=== PATIENT | female | born 1960 | race Caucasian/White ===

== ENCOUNTER → 2017-01-24 | Outpatient (CLI) | payer BC ==
[~2017-01-24] MED LIST: BUPR-79 PO; OXYC-57 PO; RIZA10TA19 PO; SUMA100T16 PO; TOPI100T20 PO
--- NOTE | 2017-01-24 16:01 | MAMMOGRAPHY REPORT ---
BILATERAL DIGITAL SCREENING MAMMOGRAM TOMOSYNTHESIS WITH CAD: 01/24/2017 CLINICAL HISTORY: Routine screening. Patient has no complaints. TECHNIQUE: Breast tomosynthesis in addition to standard 2D mammography was performed. Current study was also evaluated with a Computer Aided Detection (CAD) system. COMPARISON: Comparison is made to exams dated: 01/13/2016 mammogram, 01/11/2015 mammogram, 10/30/2013 ma mmogram, 10/22/2012 mammogram, 10/22/2011 mammogram, and 06/22/2009 mammogram - [facility] enter. BREAST COMPOSITION: The tissue of both breasts is heterogeneously dense, which may obscure small mas ses. FINDINGS: No suspicious masses, calcifications, or areas of architectural distortion are noted in ei ther breast. There has been no significant interval change compared to prior exams. IMPRESSION: ACR BI-RADS CATEGORY 1: NEGATIVE There is no mammographic evidence of malignancy. A 1 year screening mammogram is recommended. The pa tient will receive written notification of the results. Approximately 10% of breast cancers are not detected with mammography. A negative mammographic report should not delay biopsy if a clinically suggestive mass is present. Nano Pacheco M.D. ah/:01/24/2017 15:24:06 Pharmacist Per Diem: Noa HIRSCH(R)(M), [facility] letter sent: Normal 1/2 BI-RADS Code: ACR BI-RADS Category 1: Negative
== END | disposition home or self-care (01) ==
LOC: C.MAMM 13:49
PROVIDERS: ATTEND Family Medicine
DX: Z12.31 Encounter for screening mammogram for malignant neoplasm of breast (principal)

== ENCOUNTER 2023-09-04 09:29 | Observation (INO) ==
--- NOTE | 2023-09-04 10:06 | CT Scan Report ---
CT SCAN OF THE BRAIN WITHOUT IV CONTRAST CLINICAL HISTORY: Neurological deficit. Stroke like symptoms. COMPARISON STUDY: No priors. TECHNIQUE: Unenhanced axial CT scan of the brain is performed from the vertex to the skull base. A d ose lowering technique was utilized adhering to the principles of ALARA. CT DOSE: 547.75 mGy.cm FINDINGS: Brain parenchyma: There is age-related involutional change noting mild subcortical and periventricula r microangiopathic disease. There is no hemorrhage, mass effect, or evidence of acute territorial isc hemia by CT criteria. Luna-white matter differentiation is preserved. No extra-axial fluid collection is seen. Ventricles, sulci, cisterns: Prominent secondary to involutional change. Cavum septum pellucidum is i ncidentally noted. Intracranial vasculature: There is atherosclerotic calcification of the cavernous carotid arteries. Calvarium: Unremarkable. Sinuses and mastoids: The visualized paranasal sinuses are clear. The mastoid air cells are well pneu matized. Orbits: The bony orbits are grossly intact. IMPRESSION: There is no hemorrhage, mass effect, or evidence of acute territorial ischemia by CT kathleen vásquez. ACT 112: Negative or not required by law. Electronically signed by: Reagan Reddy M.D. 09/04/2023 10:04 AM
--- NOTE | 2023-09-04 10:33 | XRay Report ---
SINGLE VIEW CHEST CLINICAL HISTORY: Strokelike symptoms. FINDINGS: A PA chest radiograph is compared to study dated 07/29/2007 and correlated with chest CT pam ed 01/12/2008. The heart is mildly enlarged noting atherosclerotic calcification of the thoracic aorta . The pulmonary vasculature is noncongested. There is minimal bibasilar scarring/atelectasis. The yas gs and pleural spaces are otherwise clear. No pneumothorax is seen. The skeletal structures are osteo penic. The bony thorax is grossly intact. Fusion hardware is noted in the lower cervical spine. Gabby cystectomy clips are seen in the right upper quadrant. IMPRESSION: No active disease in the chest. ACT 112: Negative or not required by law. Electronically signed by: Reagan Reddy M.D. 09/04/2023 10:32 AM
[2023-09-04 11:09] LABS: Hematocrit (blood only) 37.9 % (37.0-47.0); Hemoglobin 13.1 g/dl (12.0-16.0); Mean Corpuscular Hemoglobin 28.2 pg (25.0-34.0); Mean Corpuscular Hgb Conc 34.6 g/dL (32.0-36.0); Mean Corpuscular Volume 81.5 fL (80.0-100.0); Platelet Count 347 K/uL (130-400); Red Blood Count 4.65 M/uL (4.20-5.40); White Blood Count 10.38 K/ul (4.8-10.8)
--- NOTE | 2023-09-04 11:25 | Emergency Department Note ---
Impression & Plan Hypertensive emergency ED Provider Note NAME: RITCHIE ROMERO AGE: 62 SEX: F : 1960 ARRIVES VIA: Walk-In INFORMANT: Patient, ED PROVIDER(S): Alfonso Salazar MD CHIEF COMPLAINT: Difficulty talking, hand numbness HPI: This is a 62-year-old female presenting for difficulty talking and numbness. Patient states that her symptoms were yesterday and she has had resolved symptoms since then. She notes that yesterday she is thought that she could not carry a conversation that she thought that her speech was obscured. She had no trouble finding words but just that trouble focusing. She thought she had sugar issues but this was not a problem as there were normal. Otherwise she had a right upper extremity tingling and numbness. She had that she did not feel the ring on her hand. All of her symptoms completely resolved. Today she told her PCP with her to come here for TIA rule out. Not take any blood thinners. No shortness of breath, fever, chills, nausea or vomiting. She has not been compliant with her medications including blood pressure medication at home. ROS: See above HPI for pertinent positives & negatives. A total of 10 systems reviewed and were otherwise negative. PAST MEDICAL HISTORY: See Below PAST SURGICAL HISTORY: See Below FAMILY HISTORY: See Below SOCIAL HISTORY: See Below HOME MEDICATIONS: See Below ALLERGIES: See Below VITALS: See Below PHYSICAL EXAMINATION: General: resting comfortably in no acute distress Head: Normocephalic and atraumatic Eyes: Normal inspection, extraocular muscles intact Ear, nose, throat: Normal external exam Neck: Normal range of motion Respiratory: lungs clear to auscultation bilaterally Cardiovascular: Regular rate/rhythm, no murmur GI: soft, nontender, no guarding or rebound Extremities: nontender, moves all extremities Neuro: The patient awake and alert, appropriately conversive, no focal deficits, symmetric faces, cranial nerves II to XII grossly intact, full motor strength in all extremities, no sensation deficits Skin: Warm, dry, and intact MEDICAL DECISION MAKING: This is a 62-year-old female presenting for transient difficulty speaking with numbness in her right upper extremity. Symptoms mildly concerning for TIA however currently no symptoms. Patient did have a blood pressure on arrival of 251/174, this was checked multiple times and cover to be accurate. Otherwise upon arrival to the exam room, her blood pressure is now down over 1 88-1 08 after about 1 hour. -Patient CT head reveals no acute traumatic or intracranial abnormality. -ECG independently interpreted by me with normal sinus rhythm with trigeminy, rate of 90, normal axis, normal [place], normal QRS, normal QTc, no ST segment elevations consistent with STEMI criteria -With patient's elevated blood pressure initially, vague neurosymptoms, consider press syndrome versus TIA versus stroke -Low concern for ACS, PE, meningitis -Despite patient's otherwise negative workup at this time, do believe patient required mission for her significant elevated blood pressure and vague neurosymptoms. This will help rule out TIA versus other neurologic symptoms. Differential diagnosis: See above ER treatment provided: See below Diagnostics interpreted by me: ECG: See above] Cardiac Monitoring: An order was placed for continuous cardiac monitoring. The monitor shows a rate of 89 with sinus rhythm. Laboratory studies: As stated above and show below. Imaging studies: See below. Past Med/Surg History Medical History (Updated 09/04/23 @ 17:54 by Alfonso Salazar MD) History of migraine Diabetes mellitus, type 2 Spinal cord injury INJURY AT WORK IN 2007 Gout Gastroparesis GERD (gastroesophageal reflux disease) Hypothyroidism Anemia Depression Anxiety Migraine Hyperlipidemia Hypertension Thrombosis RT JUGULAR Pulmonary embolism 2008 Surgical History History of anesthesia reaction WENT IN TO A COMA FOR 1 DAY AFTER SILVIA (DONE AT [place] 1984) History of dilatation and curettage History of total abdominal hysterectomy and bilateral salpingo-oophorectomy Fusion of spine 2008 History of cholecystectomy History of appendectomy History of colonoscopy History of mandibular surgery UPPER AND LOWER History of tooth extraction History of tonsillectomy Family History Sister Family history of diabetes mellitus Heart disease Social History Smoking Status: Never smoker Second Hand Exposure: No; Hx Alcohol Use: Yes Alcohol type: wine Hx Substance Use: No Preferred Language: Slovak Communication Ability: Effective High Court Justice Required: No Beliefs That Will Affect Care: None Current Living Situation: Other Feels Safe at Home: Yes Safety Concerns: Feels Safe At This Time Assistive Devices: Glasses Allergies Allergies Allergy/AdvReac Type Severity Reaction Status Date / Time exenatide [From Bydureon] Allergy Hives Verified 09/04/23 12:52 Home Meds Home Medications Medication Instructions Recorded Confirmed sumatriptan succinate 100 mg 1 tab PO UD PRN Migraine Headache 04/17/18 09/04/23 tablet (Imitrex) galcanezumab-gnlm 120 mg/mL 120 mg subcut MO 09/04/23 09/04/23 subcutaneous pen injector (Emgality Pen) glimepiride 4 mg tablet 4 mg PO BID 09/04/23 09/04/23 semaglutide 2 mg/dose (8 mg/3 mL) 2 mg subcut WK 09/04/23 09/04/23 subcutaneous pen injector (Ozempic) Results & Data (ED) Vital Signs Vital Signs - 24 hr 09/04/23 09:36 09/04/23 11:00 09/04/23 11:01 Temperature 36.7 C Temperature Source Temporal Artery Scan Pulse Rate 85 94 H Pulse Rate [Left Finger] 93 H Pulse Rhythm Respiratory Rate 18 20 Respiratory Effort / Characteristics Non-Labored Spontaneous Respiratory Depth Normal Blood Pressure 251/174 H Blood Pressure [Left Arm] 188/108 H Blood Pressure Mean 199 Blood Pressure Mean [Left Arm] 134 Blood Pressure Position Sitting Blood Pressure Position [Left Arm] Sitting Pulse Oximetry 99 98 Oxygen Delivery Method Room Air Room Air Sepsis Recent Fever Within 48 Hours No Sepsis New/Unexplained Change in Mental Status No Sepsis Action Taken by Nursing No Action Required 09/04/23 12:14 09/04/23 12:14 Temperature Temperature Source Pulse Rate 87 Pulse Rate [Left Finger] Pulse Rhythm Regular Respiratory Rate 22 Respiratory Effort / Characteristics Respiratory Depth Blood Pressure Blood Pressure [Left Arm] Blood Pressure Mean Blood Pressure Mean [Left Arm] Blood Pressure Position Blood Pressure Position [Left Arm] Pulse Oximetry 94 94 Oxygen Delivery Method Room Air Room Air Sepsis Recent Fever Within 48 Hours Sepsis New/Unexplained Change in Mental Status Sepsis Action Taken by Nursing Laboratory Data 09/04/23 10:56 09/04/23 10:56 Lab Results 09/04/23 Range/Units 10:56 WBC 10.38 (4.8-10.8) K/ul RBC 4.65 (4.20-5.40) M/uL Hgb 13.1 (12.0-16.0) g/dl Hct 37.9 (37.0-47.0) % MCV 81.5 (80.0-100.0) fL MCH 28.2 (25.0-34.0) pg MCHC 34.6 (32.0-36.0) g/dL RDW Std Deviation 38.0 (36.4-46.3) fL RDW Coeff of Aroldo 13.0 (11.5-14.5) % Plt Count 347 (130-400) K/uL MPV 12.0 (9.4-12.4) fL PT 10.6 (9.0-12.0) Seconds INR 1.0 (0.9-1.1) APTT 28 (21-31) Seconds PTT Ratio 1.0 Sodium 138 (136-145) mmol/L Potassium 3.0 L (3.5-5.1) mmol/L Chloride 100 (98-107) mmol/L Carbon Dioxide 30 (21-32) mmol/L Anion Gap 8 (3-11) BUN 17 (6-23) mg/dl Creatinine 0.68 (0.6-1.2) mg/dl Est Cr Clr Drug Dosing 83.4 ml/min Est GFR ( Amer) 107.9 ml/min Est GFR (Non-Af Amer) 93.1 ml/min BUN/Creatinine Ratio 25.0 H (10-20) Glucose 131 H (70-99(Fasting)) mg/dl Calcium 9.5 (8.6-10.3) mg/dl Magnesium 1.5 L (1.7-2.4) mg/dl Total Bilirubin 0.4 (0.2-1.0) mg/dl AST 17 (13-39) U/L ALT 20 (7-52) U/L Alkaline Phosphatase 69 (34-104) U/L Troponin I High Sens 5.6 (0-14) pg/ml Total Protein 8.0 (6.0-8.3) gm/dl Albumin 4.3 (3.4-5.0) gm/dl Globulin 3.7 (2.5-4.0) gm/dl Albumin/Globulin Ratio 1.2 (0.9-2) Administered Medications Insulin Aspart (Insulin Aspart Per Unit Charge) 0 units SC ACHS AHSAN Stop: 10/04/23 16:29 Last Admin: 09/04/23 15:51 Dose: Not Given Documented By: SUSSY Co-signed By: MIESHA Discontinued Medications Aspirin (Aspirin 81 Mg Chew) 324 mg PO NOW STA Stop: 09/04/23 13:14 Last Admin: 09/04/23 14:22 Dose: 324 mg Documented By: MIESHA Gadobutrol (Gadobutrol 65ml Vial) 7.5 ml IV ONCE ONE Stop: 09/04/23 17:29 Last Admin: 09/04/23 17:28 Dose: 7.5 ml Documented By: AMOL Nicardipine HCl 25 mg/ Sodium (Chloride) 250 mls @ 50 mls/hr IV .Q5H [facility]; Protocol Stop: 10/04/23 10:44 Last Admin: 09/04/23 15:19 Dose: Not Given Documented By: SUSSY Magnesium Sulfate/Dextrose (Magnesium Sulfate / D5w) 1 gm in 100 mls @ 100 mls/hr IV NOW STA Stop: 09/04/23 13:01 Last Infusion: 09/04/23 14:26 Dose: Infused Documented By: Admin: 09/04/23 13:11 Dose: 100 mls/hr Documented By: MIESHA Magnesium Sulfate/Dextrose (Magnesium Sulfate / D5w) 1 gm in 100 mls @ 50 mls/hr IV ONE ONE Stop: 09/04/23 17:26 Last Admin: 09/04/23 17:50 Dose: 50 mls/hr Documented By: SUSSY Lisinopril (Lisinopril 10 Mg Tab) 10 mg PO NOW ONE Stop: 09/04/23 12:39 Last Admin: 09/04/23 13:10 Dose: 10 mg Documented By: MIESHA Miscellaneous (Stat Iv Infusion Titration Per Protocol) 1 each N/A NOW STA Stop: 09/04/23 10:32 Last Admin: 09/04/23 15:19 Dose: Not Given Documented By: SUSSY Potassium Chloride (Potassium Chloride Crtab 20 Meq Tabcr) 40 meq PO NOW STA Stop: 09/04/23 12:02 Last Admin: 09/04/23 13:09 Dose: 40 meq Documented By: MIESHA Potassium Chloride (Potassium Chloride Crtab 20 Meq Tabcr) 40 meq PO ONE ONE Stop: 09/04/23 17:01 Last Admin: 09/04/23 17:51 Dose: 40 meq Documented By: Imaging Data Radiologist's Impression: Chest X-Ray 09/04/23 09:41 SINGLE VIEW CHEST CLINICAL HISTORY: Strokelike symptoms. FINDINGS: A PA chest radiograph is compared to study dated 07/29/2007 and correlated with chest CT dated 01/12/2008. The heart is mildly enlarged noting atherosclerotic calcification of the thoracic aorta. The pulmonary vasculature is noncongested. There is minimal bibasilar scarring/atelectasis. The lungs and pleural spaces are otherwise clear. No pneumothorax is seen. The skeletal structures are osteopenic. The bony thorax is grossly intact. Fusion hardware is noted in the lower cervical spine. Cholecystectomy clips are seen in the right upper quadrant. IMPRESSION: No active disease in the chest. ACT 112: Negative or not required by law. Electronically signed by: Reagan Reddy M.D. 09/04/2023 10:[address] 09/04/23 09:41 CT SCAN OF THE BRAIN WITHOUT IV CONTRAST CLINICAL HISTORY: Neurological deficit. Stroke like symptoms. COMPARISON STUDY: No priors. TECHNIQUE: Unenhanced axial CT scan of the brain is performed from the vertex to the skull base. A dose lowering technique was utilized adhering to the principles of ALARA. CT DOSE: 547.75 mGy.cm FINDINGS: Brain parenchyma: There is age-related involutional change noting mild subcortical and periventricular microangiopathic disease. There is no hemorrhage, mass effect, or evidence of acute territorial ischemia by CT criteria. Luna-white matter differentiation is preserved. No extra-axial fluid collection is seen. Ventricles, sulci, cisterns: Prominent secondary to involutional change. Cavum septum pellucidum is incidentally noted. Intracranial vasculature: There is atherosclerotic calcification of the cavernous carotid arteries. Calvarium: Unremarkable. Sinuses and mastoids: The visualized paranasal sinuses are clear. The mastoid air cells are well pneumatized. Orbits: The bony orbits are grossly intact. IMPRESSION: There is no hemorrhage, mass effect, or evidence of acute territorial ischemia by CT criteria. ACT 112: Negative or not required by law. Electronically signed by: Reagan Reddy M.D. 09/04/2023 10:04 AM Discharge Plan Visit Data Chief Complaint: Referred by Doctor Stated Complaint: REF BY DOC FOR POSSIBLE TIA ED Provider: Alfonso Salazar Discharge Problem: Hypertensive emergency Patient Disposition: Admitted As Inpatient Discharge Instructions Interventions: ED Discharge Assessment Last Done: 09/04/23 15:28
[2023-09-04 11:26] LABS: Albumin Globulin Ratio 1.2 (0.9-2); Albumin Level 4.3 gm/dl (3.4-5.0); Bilirubin,Total 0.4 mg/dl (0.2-1.0); Calcium 9.5 mg/dl (8.6-10.3); Creatinine Clr Calc Pharmacy 83.4 ml/min; Est GFR (African American) 107.9 ml/min; Est GFR (Non-African American) 93.1 ml/min; Globulin 3.7 gm/dl (2.5-4.0); Magnesium 1.5 mg/dl (1.7-2.4)
[2023-09-04 11:47] LABS: Partial Thromboplastin Time 28 Seconds (21-31); Prothrombin Time 10.6 Seconds (9.0-12.0)
--- NOTE | 2023-09-04 12:25 | History & Physical Report ---
Date of Service September 04, 2023 Assessment & Plan (1) Stroke-like symptoms: (2) Hypertensive emergency: Plan: Patient is 62 year old female with PMH DM II, HTN, dyslipidemia, migraine, gastroparesis, GERD, history of PE presented to ER with complaint of right hand numbness, word finding difficulty yesterday that lasted 20-30 minutes with associated JAMES. Today with chronic daily JAMES and denies other symptoms In ER BP 251/174 down to 188/108 without medications. Initially nicardipine drip ordered however BP improved prior to being started. CT head: There is no hemorrhage, mass effect, or evidence of acute territorial ischemia by CT criteria. DDX: TIA, CVA, Hypertensive emergency, atypical migraine Tele to monitor for arrhythmias EKG in am Lipid panel, A1c, TSH in am MRI brain US carotids Echo Aspiration precautions PT/OT consult Noncompliant with home medications (previously prescribed atorvastatin 80mg, lisinopril 20mg, aspirin 81mg) Will start aspirin, restart atorvastatin at 40mg daily Start lisinopril 10mg now and monitor BP, may need to further increase Hydralazine prn SBP >185 Neurology consult (3) Hypokalemia: Plan: K: 3.0 In ER given KCl 40meq Replace and monitor (4) Hypomagnesemia: Plan: Magnesium: 1.5 In ER given 1 gm magnesium sulfate IV Replace and monitor (5) Diabetes mellitus, type 2: Plan: A1c: 7.1 on 03/06/23 Hold home glimepiride and Ozempic. Home dose of glimepiride to be 4mg BID however pt taking once daily Novolog sliding scale per protocol (6) History of migraine: Plan: On Emgality once monthly Previously was on nortriptyline 20 mg at bedtime and magnesium oxide 400 mg daily however has not been taking (7) Hyperlipidemia: Plan: Prescribed atorvastatin however has not been taking (8) Gastroparesis: (9) GERD (gastroesophageal reflux disease): Plan: Previously on PPI however has not been taking DVT Prophylaxis SCDs Full Code as per discussion with pt Follows with Dr Hernandez for routine care Pt was seen and care coordinated with Dr Quintero. See addendum I spent a total of 75 minutes reviewing notes, outpatient records, labs, medication, coordinating, documenting and providing care for this patient excluding time spent in the performance of separately billed services. History of Present Illness Chief Complaint: Right arm numbness Primary Care Provider: Ilana Goff PA-C Patient is 62 year old female with PMH DM II, HTN, dyslipidemia, migraine, gastroparesis, GERD, history of PE presented to ER with complaint of right hand numbness yesterday. History obtained from patient as well as outpatient chart review. Patient reports history of chronic headaches and migraines. She reports she wakes daily with mild frontal headache. She does not take anything for this headache. Patient states daily headaches have been happening since she was a teenager. Patient states yesterday woke up with her "normal headache" and went to work. She states she did not eat very much as she knew she had a busy day. Patient states was under a lot of stress at work yesterday. She reports around lunchtime had onset of word finding difficulty. Coworker denies noting any slurred speech but noted patient had trouble finding her words. Patient also noted some right hand numbness. She states she was having trouble reading as she could not comprehend the words. Also noted headache worsened. Patient states symptoms lasted 20 to 30 minutes and then resolved. Patient continued with headache and states she went home after work and took a nap. Upon awakening headache also resolved. Denies any diplopia, vision loss. Reports with migraines will have severe headache, photophobia, phonophobia, nausea, vomiting without aura. States symptoms yesterday were different than her typical migraine. Patient states she is supposed to be taking lisinopril, glimepiride, nortriptyline, atorvastatin, omeprazole however she has not been taking for quite some time. Patient reports chronic shortness of breath after remote PE but denies any worsening. Denies fever/chills, diaphoresis, N/V/D/C, dizziness, syncope, neck pain, CP, orthopnea, palpitations, cough, sore throat, otalgia, rhinorrhea, abdominal pain, weakness, extremity weakness, extremity edema, rashes, urinary symptoms. Allergies Allergy/AdvReac Type Severity Reaction Status Date / Time exenatide [From [facility]] Allergy Hives Verified 09/04/23 12:52 Home Medications Medication Instructions Recorded Confirmed Type sumatriptan succinate 100 mg 1 tab PO UD PRN Migraine Headache 04/17/18 09/04/23 History tablet (Imitrex) galcanezumab-gnlm 120 mg/mL 120 mg subcut MO 09/04/23 09/04/23 History subcutaneous pen injector (Emgality Pen) glimepiride 4 mg tablet 4 mg PO BID 09/04/23 09/04/23 History semaglutide 2 mg/dose (8 mg/3 mL) 2 mg subcut WK 09/04/23 09/04/23 History subcutaneous pen injector (Ozempic) Past Med/Surg History Medical History (Updated 09/04/23 @ 13:28 by Genesis Hannon PA-C) History of migraine Diabetes mellitus, type 2 Spinal cord injury INJURY AT WORK IN 2007 Gout Gastroparesis GERD (gastroesophageal reflux disease) Hypothyroidism Anemia Depression Anxiety Migraine Hyperlipidemia Hypertension Thrombosis RT JUGULAR Pulmonary embolism 2007 Surgical History History of anesthesia reaction WENT IN TO A COMA FOR 1 DAY AFTER SILVIA (DONE AT [facility] 1984) History of dilatation and curettage History of total abdominal hysterectomy and bilateral salpingo-oophorectomy Fusion of spine 2007 History of cholecystectomy History of appendectomy History of colonoscopy History of mandibular surgery UPPER AND LOWER History of tooth extraction History of tonsillectomy Family History Sister Family history of diabetes mellitus Heart disease Social History Smoking Status: Never smoker Second Hand Exposure: No; Do You Dip or Chew Tobacco: No; Hx Alcohol Use: Yes Alcohol type: wine Hx Substance Use: No Preferred Language: Welsh Communication Ability: Effective Metal Machinist Required: No Beliefs That Will Affect Care: None Current Living Situation: Alone Feels Safe at Home: Yes Assistive Devices: Glasses Review of Systems Review of Systems: All systems reviewed & are unremarkable except as noted in HPI & below Physical Exam Physical Exam: General: no distress, WDWN Head: normocephalic, atraumatic Eyes: PERRL, EOM's intact, no nystagmus, conjunctiva non-injected, anicteric ENT: normal inspection external ears, nose, mucous membranes moist Neck: supple, trachea midline Lungs: clear, no respiratory distress, no wheezing/rhonchi/rales CV: RRR, no murmur, no pretibial edema Abd: normal BS, soft, non-tender Ext: no cyanosis, no calf tenderness Neuro: A&O x 3, normal affect, facial sensation is intact and symmetric, face is strong and symmetric, hearing grossly intact, soft palate elevates symmetrically, no dysarthria, shoulder shrug intact, tongue is midline, normal movement, no fasciculations. Strength 5/5 throughout Skin: warm, dry Results & Data Results & Data Vital Signs (Past 12 Hours) Vital Signs Temp Pulse Pulse Resp BP BP Pulse Ox 09/04/23 12:14 87 22 94 09/04/23 12:14 94 09/04/23 11:01 94 H 09/04/23 11:00 93 H 20 188/108 H 98 09/04/23 09:36 36.7 C 85 18 251/174 H 99 O2 Del Method 09/04/23 12:14 Room Air 09/04/23 12:14 Room Air 09/04/23 11:01 09/04/23 11:00 Room Air 09/04/23 09:36 Room Air Laboratory Results Short CBC 09/04/23 Range/Units 10:56 WBC 10.38 (4.8-10.8) K/ul Hgb 13.1 (12.0-16.0) g/dl Hct 37.9 (37.0-47.0) % Plt Count 347 (130-400) K/uL BMP 09/04/23 10:56 Sodium 138 Potassium 3.0 L Chloride 100 Carbon Dioxide 30 BUN 17 Creatinine 0.68 Glucose 131 H Calcium 9.5 Liver Function 09/04/23 Range/Units 10:56 Total Bilirubin 0.4 (0.2-1.0) mg/dl AST 17 (13-39) U/L ALT 20 (7-52) U/L Alkaline Phosphatase 69 (34-104) U/L Albumin 4.3 (3.4-5.0) gm/dl Diagnostic Findings Chest X-Ray 09/04/23 09:41 SINGLE VIEW CHEST CLINICAL HISTORY: Strokelike symptoms. FINDINGS: A PA chest radiograph is compared to study dated 07/29/2007 and correlated with chest CT dated 01/12/2008. The heart is mildly enlarged noting atherosclerotic calcification of the thoracic aorta. The pulmonary vasculature is noncongested. There is minimal bibasilar scarring/atelectasis. The lungs and pleural spaces are otherwise clear. No pneumothorax is seen. The skeletal structures are osteopenic. The bony thorax is grossly intact. Fusion hardware is noted in the lower cervical spine. Cholecystectomy clips are seen in the right upper quadrant. IMPRESSION: No active disease in the chest. ACT 112: Negative or not required by law. Electronically signed by: Reagan Reddy M.D. 09/04/2023 10:[address] 09/04/23 09:41 CT SCAN OF THE BRAIN WITHOUT IV CONTRAST CLINICAL HISTORY: Neurological deficit. Stroke like symptoms. COMPARISON STUDY: No priors. TECHNIQUE: Unenhanced axial CT scan of the brain is performed from the vertex to the skull base. A dose lowering technique was utilized adhering to the principles of ALARA. CT DOSE: 547.75 mGy.cm FINDINGS: Brain parenchyma: There is age-related involutional change noting mild subcortical and periventricular microangiopathic disease. There is no hemorrhage, mass effect, or evidence of acute territorial ischemia by CT criteria. Luna-white matter differentiation is preserved. No extra-axial fluid collection is seen. Ventricles, sulci, cisterns: Prominent secondary to involutional change. Cavum septum pellucidum is incidentally noted. Intracranial vasculature: There is atherosclerotic calcification of the cavernous carotid arteries. Calvarium: Unremarkable. Sinuses and mastoids: The visualized paranasal sinuses are clear. The mastoid air cells are well pneumatized. Orbits: The bony orbits are grossly intact. IMPRESSION: There is no hemorrhage, mass effect, or evidence of acute territorial ischemia by CT criteria. ACT 112: Negative or not required by law. Electronically signed by: Reagan Reddy M.D. 09/04/2023 10:04 AM ECG Additional Comments: sinus rhythm, rate 90, + PVCs Supervising Physician Co-Signing Physician Notes I have seen and discussed the case with the collaborating advanced practitioner. I agree with the above H&P. I have reviewed and confirmed the patients medical history, the findings on physical examination, and the patients diagnosis and treatment plan with Riddhi MENDEZ and agree with the information documented. In short, Ms. Warren is a 62 year old female with PMH DM II, HTN, dyslipidemia, migraine, gastroparesis, GERD, history of PE who is admitted for stroke like symptoms in the setting of HTN emergency. Notably pressure decreasing, nicardipine ordered in ED, however, pressure dropped from 250s to 180s. Neuologic symptoms resolved. Endorses medication noncompliance GENERAL APPEARANCE: AxOx4, generally well-appearing F, no acute distress. HEENT: NC, AT. MMM. EOMI, clear conjunctiva, oropharynx clear. NECK: Supple without lymphadenopathy. No stiffness or restricted ROM. HEART: Normal rate and regular rhythm, normal S1/S1, no m/r/g LUNGS: CTAB, moving air well. No crackles or wheezes are heard. ABDOMEN: Soft, nontender, nondistended with good bowel sounds heard. BACK: No CVAT, no obvious deformity. EXTREMITIES: Without cyanosis, clubbing or edema. NEUROLOGICAL: Grossly nonfocal. Alert and oriented, moving all 4 extremities. CN II-XII intact Skin: Warm and dry without any rash. #Stroke like symptoms #Hypertensive emergency -Nicardipine ordered, PO lisinopril now -Stroke work up as above MRI ordered lipid and A1C Rest of plan as above I spent a total of 25 minutes coordinating, documenting, and providing care for this patient excluding time spent in the performance of separately billed services. All of the aforementioned completed outside of collaborating with the assigned advanced practitioner for a full treatment plan. I have reviewed the advanced practitioner's documentation, and I agree with, and take responsibility for the plan of care
[2023-09-04] MEDS: POTASSIUM CHLORIDE CRTAB 20 MEQ TABCR PO STA (13:09)
[2023-09-04] MEDS: lisinopril 10 MG TAB PO ONE (13:10)
[2023-09-04] MEDS: MAGNESIUM SULFATE / D5W 1 GM/100 ML BAG IV STA (13:11)
[2023-09-04 14:11] LABS: Troponin I High Sensitivity 5.6 pg/ml (0-14)
[2023-09-04] MEDS: ASPIRIN 81 MG CHEW PO STA (14:22)
[2023-09-04] MEDS: niCARdipine 25 MG in SODIUM CHLORIDE 0.9% 240 ML IV SCH (15:19)
[2023-09-04] MEDS: STAT IV Infusion **Titration per Protocol STA (15:19)
[2023-09-04] MEDS ORDERED: DEXTROSE 50% 50 ML SYRINGE IV PRN (15:27)
[2023-09-04] MEDS ORDERED: PHARMACIST DISCHARGE MED REC CONSULT PRN (15:27)
[2023-09-04] MEDS ORDERED: GLUCAGON FOR INJ 1 MG VIAL SQ PRN (15:27)
[2023-09-04] MEDS ORDERED: CARBOHYDRATES FOR HYPOGLYCEMIA PO PRN (15:27)
[2023-09-04] MEDS ORDERED: GLUCOSE 10 TAB/TUBE PO PRN (15:27)
[2023-09-04] MEDS ORDERED: ONDANSETRON INJ 2 MG/ML 2 ML VIAL IV PRN (15:27)
[2023-09-04] MEDS ORDERED: POLYETHYLENE (MIRALAX) 17 GM PACK PO PRN (15:27)
[2023-09-04] MEDS ORDERED: GLUCOSE 40% GEL 15 GM TUBE PO PRN (15:27)
[2023-09-04] MEDS ORDERED: hydrALAZINE HCL 20 MG/ML VIAL IV PRN (15:27)
[2023-09-04] MEDS: INSULIN ASPART PER UNIT CHARGE SC SCH (15:51)
--- NOTE | 2023-09-04 16:09 | Electrocardiogram Report ---
Test Reason : Blood Pressure : / mmHG Vent. Rate : 090 BPM Atrial Rate : 090 BPM P-R Int : 146 ms QRS Dur : 090 ms QT Int : 372 ms P-R-T Axes : 023 -01 021 degrees QTc Int : 455 ms Sinus rhythm with frequent Premature ventricular complexes Left atrial enlargement Incomplete right bundle branch block Minimal voltage criteria for LVH, may be normal variant ( R in aVL ) Borderline ECG When compared with ECG of 16-JAN-2010 09:07, Premature ventricular complexes are now Present Vent. rate has increased BY 32 BPM T-wave inversion in Anterior leads no longer present Confirmed by Olvin Stephen ([id number]) on 09/04/2023 4:09:12 PM Referred By: REFERRED SELF Confirmed By:Olvin Stephen
[2023-09-04] MEDS: GADOBUTROL 65ML VIAL IV ONE (17:28)
[2023-09-04] MEDS: MAGNESIUM SULFATE / D5W 1 GM/100 ML BAG IV ONE (17:50)
[2023-09-04] MEDS: POTASSIUM CHLORIDE CRTAB 20 MEQ TABCR PO ONE (17:51)
--- NOTE | 2023-09-04 17:57 | Ultrasound Report ---
US carotid doppler BI CLINICAL HISTORY: 62 years-old Female with TIA. Acute strokelike symptoms COMPARISON: 08/14/2007 TECHNIQUE: Multiple real time sonographic images of the carotid bifurcations were obtained assessing kay scale, color Doppler and spectral wave form appearance FINDINGS: RIGHT CAROTID: The peak systolic velocity measured within the right ICA is 58 cm/sec. The end diast olic velocity measured 16 cm/sec. The ICA to CCA ratio measured 0.81 which correlates with a stenosi s of 0-50%. Mild atherosclerotic plaque of the carotid bulb. LEFT CAROTID: The peak systolic velocity measured within the left ICA is 82 cm/sec. The end diastol ic velocity measured 20 cm/sec. The ICA to CCA ratio measured 0.8 which correlates with a stenosis of 0-50%. Mild atherosclerotic plaque of the carotid bulb. There is normal antegrade vertebral flow bilaterally. IMPRESSION: 1. Mild atherosclerosis without hemodynamically significant stenosis. 2. Normal antegrade vertebral flow bilaterally. ACT 112: Negative or not required by law. The above report was generated using voice recognition software. It may contain grammatical, syntax o r spelling errors. Electronically signed by: Kristian Daley M.D. 09/04/2023 5:56 PM
--- NOTE | 2023-09-04 18:08 | Magnetic Resonance Report ---
MR brain wo/w con HISTORY: 62 years-old Female R/O Stroke acute strokelike symptoms COMPARISON: Head CT 09/04/2023 TECHNIQUE: Multiplanar multisequence MRI of the brain was obtained with and without IV contrast. FINDINGS: No restricted diffusion. Cavum septum pellucidum and vergae. Midline structures are unremarkable. No acute intracranial hemorrhage, midline shift, abnormal extra-axial collection, hydrocephalus or intra -axial mass. There is no pathologic blooming artifact. Cerebral venous sinuses and major arterial flow voids appear patent. Skull, orbits and soft tissues a re unremarkable. Mastoid air cells are clear. Mild mucosal thickening of the paranasal sinuses. Mild involutional changes with mild T2/FLAIR hyperintense foci throughout the white matter likely represen ting chronic microvascular ischemic disease. No abnormal enhancement. IMPRESSION: 1. No acute intracranial abnormality. No acute or subacute infarct. 2. No abnormal enhancement. ACT 112: Negative or not required by law. The above report was generated using voice recognition software. It may contain grammatical, syntax o r spelling errors. Electronically signed by: Kristian Daley M.D. 09/04/2023 6:06 PM
--- OUTSIDE RECORDS SUMMARY | 2023-09-04 19:23 | External Medical Summary | Summary of Care ---
Author Name Unknown Organization [facility] Address [address] [facility] [place] [place] [address] Phone [phone] Care Team Providers Care Flight Crew Time Clerk Name Role Phone Unavailable Primary Care Provider Unavailabl e Reason for Visit * Reason Onset Date Comments Medication Refill 08/31/2023 Encounter Details Date Type Department Care Team (Late st Contact Info) Description 08/31/2023 Refill Neurology [facility] [place] [address] [facility] [place] [id number] Talita Rucker PA-C [address] [facility] [place] [address] Allergies Active Allergy Reactions Criticality Noted Date Comments Exenatide Hives 07/29/2013 documented as of this encounter (statuses as of 08/31/2023) Medications Medication Sig Dispensed Refills Start Date End Date Status ASPIRIN 81 MG PO CHEW One pill by mouth once a day with food 100 Tab 5 07/25/2011 Active ONETOUCH DELICA LANCING DEV MISCIndications:D M type 2, goal A1C below 8.0 Use as directed up to 4 times daily 1 Each 0 08/06/2014 Active Insulin Pen Needle (BD PEN NEEDLE SHORT U/F) 31G X 8 MM Use up to four times a day and as needed. 180 Each 3 12/29/2018 Active Vitamin D-3 25 MCG (1000 UT) Oral Capsule Take 1 Capsule by mouth in the morning. 0 Active Vitamin A 4.5 MG (41638 UT) Oral Tablet Take by mouth. 0 Active Magnesium Oxide 400 MG Oral Capsule Take by mouth 1 Capsule in the morning. 90 Capsule 2 11/13/2021 Active Riboflavin 400 MG Oral Tablet Take by mouth 1 Tablet in the morning. 90 Tablet 2 11/13/2021 Active Ezetimibe 10 MG Oral Tablet (Zetia)Indication s:Dyslipidemia Take by mouth 1 Tablet in the morning. 90 Tablet 3 02/22/2022 Active Additional Information Patient taking differently:10 mg Oral Daily(AM), Takes in the evening, Reported on 03/06/2023 D-Care Glucometer w/Device KitIndications:Ty pe 2 diabetes mellitus with hemoglobin A1c goal of less than 7.0% ([facility]) Use as directed. Use as directed for home glucose testing once daily 1 Kit 0 07/30/2022 Active LancetsIndication s:Type 2 diabetes mellitus with hemoglobin A1c goal of less than 7.0% ([facility]) Use as directed once daily for glucose testing. 100 Each 11 07/30/2022 Active SUMAtriptan Succinate 100 MG Oral TabletIndications :Migraine variant Take 1 Tablet by mouth daily as needed for Migraine. May take an additional 1 tab in 24 hours if needed 90 Tablet 1 09/10/2022 Active Nortriptyline HCl 10 MG Oral Capsule (Pamelor)Indicati ons:Migraine variant Take 2 Capsules by mouth at bedtime. 180 Capsule 2 11/19/2022 Active Additional Information Patient not taking.Reported on 05/14/2023 Ozempic (2 MG/DOSE) 8 MG/3ML Subcutaneous Solution Pen-injector (Semaglutide (2 MG/DOSE))Indicati ons:Type 2 diabetes mellitus with hyperglycemia, without long-term current use of insulin (HCC) INJECT 0.75 ML UNDER THE SKIN ONCE WEEKLY 9 mL 1 02/19/2023 Active Lisinopril 20 MG Oral Tablet (Prinivil)Indicat ions:HTN, goal below 130/80 Take 1 Tablet by mouth in the morning. 90 Tablet 3 03/01/2023 Active Additional Information Patient taking differently:20 mg Oral Daily(AM), Takes in the evening, Reported on 03/06/2023 Ibuprofen 800 MG Oral Tablet (Motrin) Take 0.75 Tablets by mouth every 8 hours as needed (post op pain). With food. 30 Tablet 0 03/08/2023 Active Galcanezumab-gnlm 120 MG/ML Subcutaneous Solution Auto-injector (Emgality) 1 injection every month after the first loading dose 1 mL 0 03/14/2023 Active Estradiol 0.1 MG/GM Vaginal Cream (Estrace) Apply pea sized amount (0.5 gm) vaginally twice a week at bedtime 42.5 g 3 04/02/2023 Active Additional Information Patient not taking.Reported on 05/14/2023 Benzonatate 100 MG Oral Capsule (Tessalon Perles) Take 1 Capsule by mouth 3 times a day as needed for Cough. Do not cut, crush, or chew. 50 Capsule 1 06/14/2023 Active Accu-Chek Arlen Plus In Vitro Strip (Glucose Blood)Indications :Type 2 diabetes mellitus with hemoglobin A1c goal of less than 7.0% ([facility]) Use once daily for glucose testing. 100 Strip 0 07/31/2023 Active Accu-Chek FastClix Lancet Kit Use to check blood glucose once daily Dx E11.9 1 Kit 0 07/31/2023 Active buPROPion HCl ER (SR) 150 MG Oral Tablet Extended Release 12 Hour (Wellbutrin SR)Indications:De pressed mood Take 1 Tablet by mouth in the morning and 1 Tablet before bedtime. 180 Tablet 0 07/31/2023 Active Dexcom G6 Sensor Use as directed. Use 1 sensor every 10 days 9 Each 0 07/31/2023 Active Dexcom G6 Transmitter Use as directed. Use 1 transmitter every 90 days 1 Each 0 07/31/2023 Active Glimepiride 4 MG Oral Tablet Take 1 Tablet by mouth in the morning and 1 Tablet before bedtime. 60 Tablet 0 07/31/2023 Active Omeprazole 20 MG Oral Capsule Delayed Release (PriLOSEC)Indicat ions:Gastroesopha geal reflux disease TAKE 1 CAPSULE IN THE MORNING AND BEFORE BEDTIME 180 Capsule 0 07/31/2023 Active Atorvastatin Calcium 80 MG Oral Tablet (Lipitor)Indicati ons:Dyslipidemia, goal LDL below 100 Take 1 Tablet by mouth in the morning. 90 Tablet 0 07/31/2023 Active Galcanezumab-gnlm 120 MG/ML Subcutaneous Solution Auto-injector (Emgality) Inject 1 mL under the skin Every Month. 1 mL 5 08/31/2023 Active Galcanezumab-gnlm 120 MG/ML Subcutaneous Solution Auto-injector (Emgality) Inject 1 mL under the skin every month. 1 mL 5 07/31/2023 Discontinue d(Refill) documented as of this encounter (statuses as of 08/31/2023) Active Problems Problem Noted Date Diagnosed Date Hematoma of breast 03/29/2023 Recurrent major depressive disorder 09/07/2022 Type 2 diabetes mellitus with diabetic dermatiti s 09/07/2022 Urinary incontinence in female 09/07/2022 Dyslipidemia 02/22/2022 Kidney stone on left side 10/18/2021 Depressed mood 05/31/2015 Migraine variant 05/31/2015 Eczematous dermatitis of eyelid 10/06/2012 Dyslipidemia, goal LDL below 100 10/16/2011 HTN, goal below 130/80 09/12/2011 Type 2 diabetes mellitus wit hout complication, without long-term current use of insulin 07/19/2011 Overview: ICD-10 update of inactive term History of pulmonary embolism 01/01/2008 documented as of this encounter (statuses as of 08/31/2023) Resolved Problems Problem Noted Date Diagnosed Date Resolved Date Acute suppurative otitis media 03/13/2013 04/30/2013 Migraine 11/06/2011 05/31/2015 Major depressive disorder 08/24/2011 Overview: ICD-10 update of inactive term Dyspnea and respiratory abnormality 01/01/2008 12/27/2016 Overview: ICD-10 update of inactive term documented as of this encounter (statuses as of 08/31/2023) Immunizations Name Administration Dates Next Due COVID-19 mRNA, LNP-s, No Pre serve, 2-Dose Series (Moderna) 08/27/2020,07/25/2020 COVID-19, mRNA, LNP-s, PF, B ooster, 100mcg/0.5mg (Moderna) 06/28/2021 Covid-19, Mrna, Lnp-s, Pf, B ivalent, 30 Mcg, IM, 12 yrs and above (Lob) 07/27/2022 Hepatitis B, 20+ yrs 10/20/2021,08/23/2021 PPD 03/06/2016 Pneumococcal Conjugate Vacci ne, 20-valent ([id number]) 02/22/2022 Pneumococcal Polysaccharide PPV23 (Pneumovax) 09/12/2011 Seasonal Influenza Virus Vac cine, Unspecified Formulation 04/10/2020 Seasonal Influenza, PF, 6 M & above, IM , (FluLaval or Fluzone) 03/01/2023,03/10/2021 Seasonal Influenza, Quadriva lent, No Preserve, IM 04/06/2019,04/15/2018,05/08/2017 Seasonal Influenza, Recombin ant, RIV4, PF, (Flublock) 04/10/2020 Seasonal Influenza, Split, I IV3, With Preserve, Inj 04/27/2016,05/03/2015,05/20/2014,04/29,04/14/2012,04/14/2011 TDAP (age 10 and older)(Boostrix) 11/17/2020 TDAP (age 11 and older)(Adacel) 11/29/2009 Zoster Vaccine Recombinant (Shingrix) 02/17/2021 ,11/17/2020 documented as of this encounter Social History Tobacco Use Types Packs/Day Years Used Date Smoking Tobacco: Never Smokeless Tobacco: Never Alcohol Use Standard Drinks/Week Comments No 0 (1 standard drink = 0.6 oz pur e alcohol) PHQ-2 Answer Date Recorded PHQ Adult Total Score 0 02/22/2022 Hunger Vital Sign Answer Date Recorded Within the past 12 months, y ou worried that your food would run out before you got the money to buy more. Never true 10/26/19 23 Within the past 12 months, t he food you bought just didn't last and you didn't have money to get more. Never true 10/25/2022 Sex and Gender Information Value Date Recorded Sex Assigned at Female 05/03/2022 8:55 AM EDT Gender Identity Female 05/03/2022 8:55 AM EDT Sexual Orientation Straight 05/03/2022 8: 55 AM EDT Job Start Date Occupation Industry Not on file Not on file Not on file documented as of this encounter Miscellaneous Notes * Telephone Encounter - Jenny Ordonez, [facility] - 08/31/2023 9:18 AM EST Transferring rx per pt request. Caprice Ordonez, Pharm.D. Clinical Specialty Pharmacist [facility] 08/31/2023, 9:18 AM documented in this encounter Plan of Treatment Upcoming Encounters Date Type Department Care Team (Latest Contact Info) Description 09/17/2023 2:00 PM EDT Office Visit Neurology [facility] [address] [facility] [place] [address] Talita Rucker PA-C [address] [facility] [place] [address] 11/18/2023 9:20 AM EDT Office Visit Gastroenterology, [facility] [address] [place] [address] Ale Stover, 12/24/2023 8:00 AM EDT Hospital Encounter ENDO O[facility], Endoscopy Room [facility] [address] [place] [phone] Tamara Echeverria MD [address] [place] [address] 12/24/2023 8:00 AM EDT - 12/24/2023 8:30 AM EDT Surgery ENDO [facility], Endoscopy Room [facility] [address] [place] [phone] Tamara Echeverria MD [address] [place] [address] COLONOSCOPY FLEXIBLE PROXIMAL DIAGNOSTIC Scheduled Procedures Name Priority Associated Diagnoses Date/Ti me COLONOSCOPY FLEXIBLE PROXIMAL DIAGNOSTIC Recall Family history of colonic polyps 12/24/2023 8:00 AM EDT Health Maintenance Due Date Last Done Comments Hepatitis B (3 of 3 - 19+ 3-dose series) 02/20/2022 10/20/2021, 08/23/2021 Depression Screening 02/22/2023 02/22/2022 Diabetic Foot Exam 02/22/2023 02/22/2022, 0 02/17/2021, 12/05/2018, Additional history exists COVID-19 Vaccine ( - 2022- season) 2023 07/27/2022, 06/28/2021, 08/27/2020, Additional history exists COLONOSCOPY-EVERY 5 YRS AGES 18-100 04/24/2023 04/24/2018, 06/26/2010 Albumin/Creatinine Ratio 08/30/2023 023, 08/22/2021, 10/20/2018, Additional history exists HbA1c 09/04/2023 03/06/2023, 03/0 07/2022, 02/28/2022, Additional history exists Mammogram 02/23/2024 02/22/2023, 01/29, 11/23/2021, Additional history exists Diabetic Eye Exam 02/26/2024 02/25/2023, , 09/13/2020, Additional history exists GFR 03/06/2024 03/06/2023, 0807/2021, 10/20/2021, Additional history exists Lipid Panel 02/28/2027 02/28/2022, 08/02, 02/16/2021, Additional history exists DTaP,Tdap,and Td Vaccines (3 - Td or Tdap) 11/17/2030 11/17/2020, 11/29/2009 Zoster Vaccines Completed 02/17/2021, 11/17/2020 Pneumococcal Vaccine: Pediatrics (0 to 5 Years) and At-Risk Patients (6 to 64 Years) Completed 02/22/2022, 09/12/2011 Influenza Vaccine (FLU shot) Completed 07/2022, 03/10/2021, 04/10/2020, Additional history exists GARDASIL-HPV IMMUNIZATION SERIES Aged Out No longer eligible based on patient's age to complete this topic MENINGOCOCCAL (MENACTRA/MENVEO) Aged Out No longer eligible based on patient's age to complete this topic documented as of this encounter Medical Devices Implanted Type Area Home Stager Device Identifier Shelf Expiration Date Model / Serial / Lot Zulema Chan - [id number] Implanted:Qty: 1 on 03/08/2023 by Félix Sandoval MD at OR [facility] N/A: Vagina [employer] [facility] 03/08/2024 [id number] / / [id number] documented as of this encounter Advance Directives Latest Code Status on File Code Status Date Activated Date Inactivated Comments Full Code 03/08/2023 9:29 AM 03/08/2023 3:20 PM This or stacey reflects the patients wishes and were consensually agreed upon. Question Answer Comments Discussion of Advance Directives occurred with: Patient
--- OUTSIDE RECORDS SUMMARY | 2023-09-04 19:24 | External Medical Summary | Continuity of Care Document ---
Author Name Unknown Organization [address] Address [address] [place] [id number] Care Team Providers Care Service Engineer Name Role Phone Mera Duran Primary Care Physician [phone] [id number] Date(s): 08/05/23 - 08/05/[address], [facility] [address] [place] [address] [phone] Encounter Diagnosis Body mass index [BMI] 27.0-27.9, adult(Discharge Diagnosis) - 08/05/23 HTN (hypertension)(Discharge Diagnosis) - 08/05/23 Dyslipidemia(Discharge Diagnosis) - 08/05/23 Migraine with aura(Discharge Diagnosis) - 08/05/23 Type 2 diabetes mellitus(Discharge Diagnosis) - 08/05/23 Well adult exam(Discharge Diagnosis) - 08/05/23 Right rotator cuff tendinitis(Discharge Diagnosis) - 08/05/23 Discharge Disposition: Home or Self Care Attending Physician: DO Duran Kristen M Referring Physician: DO Duran Kristen M Allergies, Adverse Reactions, Alerts Substance Reaction Severity Status exenatide Urticaria Active Assessment and Plan Extracted from: Title:Office Visit Note Author:DO Duran Kriste n M Date:08/05/23 1.Well adult exam -mammo up to date -colonoscopy sched this Spring -labs ordered -immunizations--will get old recs 2.Migraine with aura Chronic condition, stable Goal:Resolution Data:unique tests ordered: _ Plan: _ -cont care with neurology 3.Type 2 diabetes mellitus Chronic condition, stable Goal:Resolution Data:unique tests ordered: _ Plan: _ -refill Ozempic 4.HTN (hypertension) Chronic condition, stable Goal:Resolution Data:unique tests ordered: _ Plan: _ -stable 5.Dyslipidemia Chronic condition, stable Goal:Resolution Data:unique tests ordered: _ Plan: _ -update in 3 months 6.Right rotator cuff tendinitis Chronic condition, stable Goal:Resolution Data:unique tests ordered: _ Plan: _Mobic 15mg daily with meal for 14 days Immunizations Given and Recorded Vaccine Date Status Refusal Reason influenza virus vaccine, inactivated 03/01/23 Chapin rded SARS-CoV-2 mRNA (Pfizer 12+) bivalent 07/27/22 Rec orded pneumococcal 20-valent conjugate vaccine 02/22/22 Recorded hepatitis B adult vaccine 10/20/21 Recorded hepatitis B adult vaccine 08/23/21 Recorded SARS-CoV-2 (COVID-19) mRNA-1273 vaccine 06/28/21 R ecorded SARS-CoV-2 (COVID-19) mRNA-1273 vaccine 08/27/20 R ecorded SARS-CoV-2 (COVID-19) mRNA-1273 vaccine 07/25/20 R ecorded zoster vaccine, inactivated 02/17/21 Recorded zoster vaccine, inactivated 11/17/20 Recorded tetanus/diphtheria/pertuss, acel (Tdap) 11/17/20 R ecorded pneumococcal 23-valent vaccine 09/12/11 Recorded Medications atorvastatin 80 mg oral tablet Start: 08/05/23 9:01:00 EST, 1 tab, PO, qhs Start Date: 08/05/23 Status: Ordered BuPROPion (Eqv-Wellbutrin SR) 150 mg/12 hours oral tablet, extended release Start: 08/05/23 9:01:00 EST, 1 tab, PO, Daily Start Date: 08/05/23 Status: Ordered Emgality Prefilled Syringe 120 mg/mL subcutaneous solution Start: 08/05/23 9:02:00 EST, 120 mg =, subQ, qmonth (30 days) Start Date: 08/05/23 Status: Ordered Estrace Vaginal 0.1 mg/g vaginal cream Start: 08/05/23 9:04:00 EST, See Instructions, 0.5gm vaginally twice a week at bedtime Start Date: 08/05/23 Status: Ordered glimepiride 4 mg oral tablet Start: 08/05/23 9:01:00 EST, 2 tab, PO, Daily Start Date: 08/05/23 Status: Ordered magnesium gluconate 250 mg oral tablet Start: 08/05/23 9:08:00 EST, 1 tab, PO, Daily Start Date: 08/05/23 Status: Ordered magnesium oxide 400 mg oral capsule Start: 08/05/23 9:10:00 EST, 1 cap, PO, Daily Start Date: 08/05/23 Status: Ordered meloxicam 15 mg oral tablet Start: 08/05/23 9:33:00 EST, 1 tab, PO, Daily, Disp# 90 tab, Refills: 0, Pharmacy: [facility] Start Date: 08/05/23 Stop Date: 11/03/23 Status: Ordered omeprazole 20 mg oral delayed release capsule Start: 08/05/23 9:39:00 EST, 1 cap, PO, Daily, Disp# 90 cap, Refills: 3, Pharmacy: [facility] Start Date: 08/05/23 Stop Date: 07/30/24 Status: Ordered Ozempic (2 mg dose) 8 mg/3 mL subQ pen Start: 08/05/23 9:22:00 EST, 2 mg =, subQ, q7days, Disp# 9 mL, Refills: 3, Pharmacy: [facility] Start Date: 08/05/23 Status: Ordered riboflavin 400 mg oral tablet Start: 08/05/23 9:09:00 EST, 1 tab, PO, Daily Start Date: 08/05/23 Status: Ordered Vitamin C 500 mg oral capsule Start: 08/05/23 9:08:00 EST, 1 cap, PO, Daily Start Date: 08/05/23 Status: Ordered Mental Status 08/05/23 Barriers to Learning one year None evide nt Mandatory Health Literacy Documentation Yes Health Literacy Communication Barriers N ever Primary Language Romansh Problem List Condition Confirmation Course Effective Dates Status Health St atus Informant Dyslipidemia Confirmed Active Well adult exam Confirmed Active HTN (hypertension) Confirmed Active Migraine with aura Confirmed Active Right rotator cuff tendinitis Confirmed Active Type 2 diabetes mellitus Confirmed Active Diagnosis Diagnosis Type Effective Dates Health Status Clinical Service Informant HTN (hypertension) Discharge Diagnosis 08/05/23 Body mass index [BMI] 27.0-27.9, adult Discharge Diagnosis 08/05/23 Non-Specified Dyslipidemia Discharge Diagnosis 08/05/23 Migraine with aura Discharge Diagnosis 08/05/23 Type 2 diabetes mellitus Discharge Diagnosis 08/05/23 Well adult exam Discharge Diagnosis 08/05/23 Right rotator cuff tendinitis Discharge Diagnosis 08/05/23 Procedures Procedure Date Related Diagnosis Body Site Status Cystourethroscopy 03/08/23 Complet ed Colonoscopy 04/24/18 Completed Colonoscopy 07/01/09 Completed Vital Signs Most recent to oldest [Reference Range]: 1 Height 162.5 cm (08/05/23 8:54 AM) Patient Weight 72.4 kg (08/05/23 8:54 AM) Body Mass Index 27.42 kg/m2 (08/05/23 8:54 AM) Temperature [36.5-37.9 DegC] 36.6 DegC (08/05/23 8:54 AM) Blood Pressure 116/72mmHg (08/05/23 8:54 AM) Cuff Pulse Pressure 44 mmHg (08/05/23 8:54 AM) Social History Social History Type Response Smoking Status Never smoked cigaret loi Sex Female FCM Outpt Note * DO Duran Kristen M: PERFORM, MODIFY, MODIFY Event Display: FCM Outpt Note Authored Date: [id number] Chief Complaint Pt here for CPE. Eye exam is current. History of Present Illness Pt presents to est care and for wellness visit. Review of Systems ROS: Denies JAMES, visual changes, SOB, CP, N/V, no edema, fever, chills, dysuria, bowel changes Physical Exam Vitals & Measurements T:36.6C BP:116/72 SpO2:97% HT:162.5cm WT:72.4kg WT:72.400kg(Dosing) BMI:27.42 PHQ2 Data(Data Documented on:08/05/2023 08:54) Emotional health assessment NEGATIVE G: AAAOx3, NAD H: RR normal S1/S2 no M/R/G L: CTA b/l no r/r/w HEENT: external ear canal and TM wnl, oral mucosa moist, no lymphadenopathy A: soft +bs nt nd E: no c/C/E b/l, pos distal pulses P: normal affect and insight, no homicidal/suicidal ideation Assessment/Plan 1.Well adult exam -mammo up to date -colonoscopy sched this Spring -labs ordered -immunizations--will get old recs 2.Migraine with aura Chronic condition, stable Goal:Resolution Data:unique tests ordered: _ Plan: _ -cont care with neurology 3.Type 2 diabetes mellitus Chronic condition, stable Goal:Resolution Data:unique tests ordered: _ Plan: _ -refill Ozempic 4.HTN (hypertension) Chronic condition, stable Goal:Resolution Data:unique tests ordered: _ Plan: _ -stable 5.Dyslipidemia Chronic condition, stable Goal:Resolution Data:unique tests ordered: _ Plan: _ -update in 3 months 6.Right rotator cuff tendinitis Chronic condition, stable Goal:Resolution Data:unique tests ordered: _ Plan: _Mobic 15mg daily with meal for 14 days Attestation nonCPE I spent mintime in previsit planning including prepping note and chart review . I spent15 time in face to face interaction with patient concerning the issues that brought them in today. I spent min time in post visit planning including finishing note and depart process Total time spent today on patient visit15 min Problem List/Past Medical History Ongoing Dyslipidemia HTN (hypertension) Migraine with aura Type 2 diabetes mellitus Medications ascorbic acid(Vitamin C 500 mg oral capsule), 500 mg= 1 cap, PO, Daily atorvastatin(atorvastatin 80 mg oral tablet), 80 mg= 1 tab, PO, qhs buPROPion(BuPROPion (Eqv-Wellbutrin SR) 150 mg/12 hours oral tablet, extended release), 150 mg= 1 tab, PO, Daily estradiol topical(Estrace Vaginal 0.1 mg/g vaginal cream), See Instructions galcanezumab(Emgality Prefilled Syringe 120 mg/mL subcutaneous solution), 120 mg, subQ, qmonth (30 days) glimepiride(glimepiride 4 mg oral tablet), 8 mg= 2 tab, PO, Daily magnesium gluconate(magnesium gluconate 250 mg oral tablet), 250 mg= 1 tab, PO, Daily magnesium oxide(magnesium oxide 400 mg oral capsule), 400 mg= 1 cap, PO, Daily omeprazole(omeprazole 20 mg oral delayed release capsule), 20 mg= 1 cap, PO, Daily riboflavin(riboflavin 400 mg oral tablet), 400 mg= 1 tab, PO, Daily Allergies exenatideUrticaria Social History Smoking Status Never smoked cigarettes Immunizations Vaccine Date Status influenza virus vaccine, inactivated 03/01/2023 Recorded SARS-CoV-2 mRNA (Pfizer 12+) bivalent 07/27/2022 Recorded pneumococcal 20-valent conjugate vaccine 02/22/2022 Recorded hepatitis B adult vaccine 10/20/2021 Recorded hepatitis B adult vaccine 08/23/2021 Recorded SARS-CoV-2 (COVID-19) mRNA-1273 vaccine 06/28/2021 Recorded zoster vaccine, inactivated 02/17/2021 Recorded zoster vaccine, inactivated 11/17/2020 Recorded tetanus/diphtheria/pertuss, acel (Tdap) 11/17/2020 Recorded SARS-CoV-2 (COVID-19) mRNA-1273 vaccine 08/27/2020 Recorded SARS-CoV-2 (COVID-19) mRNA-1273 vaccine 07/25/2020 Recorded pneumococcal 23-valent vaccine 09/12/2011 Recorded Recommendations Health Maintenance Pending(in the next year) There are no current recommendations pending Due In Future Adult Influenza Vaccine not due until12/29/23and every 1year Satisfied(in the past 1 year) Satisfied Adult Influenza Vaccine on03/01/23.Satisfied by JAN Hussein Donna Electronic Signature on File Electronically Reviewed/Signed by: Mera Duran DO Author Signature Dt/Tm:08/05/2023 09:46 AM Department of Family Medicine [facility] Patient Care team information Care Team Personnel Name: DO Duran Kristen M Position: Physician - Family Med Member Role: Primary Care Provider Address: Address: [address] [place] [address], [place] [address] Care Team Related Persons Name: LÁVARO ORVILLE Address: [address] [place] [address] [place] [phone]
--- OUTSIDE RECORDS SUMMARY | 2023-09-04 19:24 | External Medical Summary | Summary of Care ---
Author Name Unknown Organization [facility] Address [address] [place] [address] Phone [phone] Care Team Providers Care Nursing Project Coordinator Name Role Phone Warner Hernandez DO Primary Care Provider + [phone] Reason for Visit * Reason Onset Date Comments TRIAGE 03/19/2023 Talita Rucker Encounter Details Date Type Department Care Team (Late st Contact Info) Description 03/19/2023 Telephone Neurology [facility] [address] [place], [place] [id number] Services, Scheduling [address] [place] [address] TRIAGE (Talita Rucker) Allergies Active Allergy Reactions Criticality Noted Date Comments Exenatide Hives 07/29/2013 documented as of this encounter (statuses as of 06/18/2023) Medications Medication Sig Dispensed Refills Start Date End Date Status ASPIRIN 81 MG PO CHEW One pill by mouth once a day with food 100 Tab 5 07/25/2011 Active ONETOUCH DELICA LANCING DEV MISCIndications:DM type 2, goal A1C below 8.0 Use [...] morning. 0 Active Vitamin A 4.5 MG (69148 UT) Oral Tablet Take by mouth. 0 Active Magnesium Oxide 400 MG Oral Capsule Take by mouth 1 Capsule in the morning. 90 Capsule 2 11/13/2021 Active Riboflavin 400 MG Oral Tablet Take by mouth 1 Tablet in the morning. 90 Tablet 2 11/13/2021 Active Ezetimibe 10 MG Oral Tablet (Zetia)Indications: Dyslipidemia Take by mouth 1 Tablet in the morning. 90 Tablet 3 02/22/2022 Active Additional Information Patient taking differently:10 mg Oral Daily(AM), Takes in the evening, Reported on 03/06/2023 Accu-Chek FastClix Lancet Kit Use to check blood glucose once daily Dx E11.9 1 Kit 0 07/19/2022 Active Accu-Chek Arlen Plus In Vitro Strip (Glucose Blood)Indications:T ype 2 diabetes mellitus with hemoglobin A1c goal of less than 7.0% (HCC) Use once daily for glucose testing. 100 Strip 3 07/30/2022 Active D-Care Glucometer w/Device KitIndications:Type 2 diabetes mellitus with hemoglobin A1c goal of less than 7.0% (HCC) Use as directed. Use as directed for home glucose testing once daily 1 Kit 0 07/30/2022 Active LancetsIndications: Type 2 diabetes mellitus with hemoglobin A1c goal of less than 7.0% (HCC) Use as directed once daily for glucose testing. 100 Each 11 07/30/2022 Active Atorvastatin Calcium 80 MG Oral Tablet (Lipitor)Indication s:Dyslipidemia, goal LDL below 100 Take 1 Tablet by mouth in the morning. 90 Tablet 3 09/10/2022 Active Additional Information Patient taking differently:80 mg Oral Daily(AM), Takes in the evening, Reported on 03/06/2023 buPROPion HCl ER (SR) 150 MG Oral Tablet Extended Release 12 Hour (Wellbutrin SR)Indications:Depr essed mood Take 1 Tablet by mouth in the morning and 1 Tablet before bedtime. 180 Tablet 3 09/10/2022 Active SUMAtriptan Succinate 100 MG Oral TabletIndications:M igraine variant Take 1 Tablet by mouth daily as needed for Migraine. May take an additional 1 tab in 24 hours if needed 90 Tablet 1 09/10/2022 Active Glimepiride 4 MG Oral Tablet (Amaryl) Take 1 Tablet by mouth in the morning and 1 Tablet before bedtime. 60 Tablet 5 09/10/2022 Active Dexcom G6 Sensor Use as directed. Use 1 sensor every 10 days 9 Each 3 10/24/2022 Active Dexcom G6 Transmitter Use as directed. Use 1 transmitter every 90 days 1 Each 3 10/24/2022 Active Nortriptyline HCl 10 MG Oral Capsule (Pamelor)Indication s:Migraine variant Take 2 Capsules by mouth at bedtime. 180 Capsule 2 11/19/2022 Active Additional Information Patient not taking.Reported on 05/14/2023 Omeprazole 20 MG Oral Capsule Delayed Release (PriLOSEC)Indicatio ns:Gastroesophageal reflux disease TAKE 1 CAPSULE IN THE MORNING AND BEFORE BEDTIME 180 Capsule 3 12/08/2022 Active Ozempic (2 MG/DOSE) 8 MG/3ML Subcutaneous Solution Pen-injector (Semaglutide (2 MG/DOSE))Indication s:Type 2 diabetes mellitus with hyperglycemia, without long-term current use of insulin (HCC) INJECT 0.75 ML UNDER THE SKIN ONCE WEEKLY 9 mL 1 02/19/2023 Active Lisinopril 20 MG Oral Tablet (Prinivil)Indicatio ns:HTN, goal below 130/80 Take 1 Tablet by [...] loading dose 1 mL 0 03/14/2023 Active documented as of this encounter (statuses as of 06/18/2023) Active Problems Problem Noted Date Diagnosed Date [...] as of this encounter (statuses as of 06/18/2023) Resolved Problems Problem Noted Date Diagnosed Date Resolved Date Acute suppurative otitis media 03/13/2013 04/30/2013 Migraine 11/06/2011 05/31/2015 Major depressive disorder 08/24/2011 Overview: ICD-10 update of inactive term Dyspnea and respiratory abnormality 01/01/2008 12/27/2016 Overview: ICD-10 update of inactive term documented as of this encounter (statuses as of 06/18/2023) Immunizations Name Administration Dates Next Due COVID-19 mRNA, LNP-s, No Pre serve, 2-Dose Series (Moderna) 08/27/2020,07/25/2020 COVID-19, mRNA, LNP-s, PF, B ooster, 100mcg/0.5mg (Moderna) 06/28/2021 Covid-19, Mrna, Lnp-s, Pf, B ivalent, 30 Mcg, IM, 12 yrs and above ([employer]) 07/27/2022 Hepatitis B, 20+ yrs 10/20/2021,08/23/2021 PPD 03/06/2016 Pneumococcal Conjugate Vacci ne, 20-valent ([id number]) 02/22/2022 Pneumococcal Polysaccharide PPV23 (Pneumovax) 09/12/2011 Seasonal [...] encounter Miscellaneous Notes * Telephone Encounter - Cassandra Mcnamara MED ASSIST - 03/19/2023 10:52 AM EDT Clarified with pharmacy * Telephone Encounter - Melissa Carrington OSA - 03/19/2023 10:34 AM EDT Abner from [facility] pharmacy calling to get clarification on a prescription emgality ordered by Talita Rucker contact # [phone] documented in this encounter Plan of Treatment Upcoming Encounters Date Type Department Care Team (Latest Contact Info) Description 08/22/2023 8:00 AM EST Hospital Encounter ENDO [facility], Endoscopy Room [facility] [address] [facility] [place] [address] Ale Stover, DO [address] [place] [address] 08/22/2023 8:00 AM EST - 08/22/2023 8:30 AM EST Surgery ENDO [facility], Endoscopy Room [facility] [address] [place] [address] Ale Stover, DO [address] [place] [address] COLONOSCOPY FLEXIBLE PROXIMAL DIAGNOSTIC 09/17/2023 2:00 PM EDT Office Visit Neurology [facility] [address] [place] [address] Talita Rucker PA-C [address] [place] [address] 11/18/2023 9:20 AM EDT Office Visit Gastroenterology, [facility] [address] [place] [address] Ale Stover, DO [address] [place] [address] Scheduled Procedures Name Priority Associated Diagnoses Date/Ti me COLONOSCOPY FLEXIBLE PROXIMAL DIAGNOSTIC Recall Family history of colonic polyps 08/22/2023 8:00 AM EST Health Maintenance Due Date Last Done Comments Hepatitis B (3 of 3 - Risk 3-dose series) 02/20/2022 10/20/2021, 08/23/2021 Depression Screening 02/22/2023 02/22/2022 Diabetic Foot Exam 02/22/2023 02/22/2022, 0 02/17/2021, 12/05/2018, Additional history exists COVID-19 Vaccine ( season) 2023 07/27/2022, 06/28/2021, 08/27/2020, Additional history exists COLONOSCOPY-EVERY 5 YRS AGES 18-100 04/24/2023 04/24/2018, 06/26/2010 Albumin/Creatinine Ratio 08/30/2023 023, 08/22/2021, 10/20/2018, Additional history exists HbA1c 09/04/2023 03/06/2023, 03/0 07/2022, 02/28/2022, Additional history exists Mammogram 02/23/2024 02/22/2023, 01/29, 11/23/2021, Additional history exists Diabetic Eye Exam 02/26/2024 02/25/2023, , 09/13/2020, Additional history exists GFR 03/06/2024 03/06/2023, 01/31, 10/20/2021, Additional history exists Lipid Panel 02/28/2027 [...] this encounter Medical Devices Implanted Type Area Professor Of Physical Education Device Identifier Shelf Expiration Date Model / Serial / Lot Zulema Chan - [id number] Implanted:Qty: 1 on 03/08/2023 by Félix Sandoval MD at OR [facility] N/A: Vagina [employer] 03/08/2024 [id number] / / [id number] documented as of this encounter Advance Directives Latest Code Status on File Code Status Date Activated Date Inactivated Comments Full Code 03/08/2023 9:29 AM 03/08/2023 3:20 PM This or stacey reflects the patients wishes and were consensually agreed upon. Question Answer Comments Discussion of Advance Directives occurred with: Patient Care Teams Nursing Project Coordinator Relationship Specialty Start Date End Date Warner Hernandez DO PCP - General Family Medicine 11/14/20 05/14/23 documented as of this encounter
--- OUTSIDE RECORDS SUMMARY | 2023-09-04 19:24 | External Medical Summary | Summary of Care ---
Author Name Unknown Organization [facility] Address [address] [facility] [place] [address] Phone [phone] Care Team Providers Care Cupola Tapper Name Role Phone Warner Hernandez DO Primary Care Provider Reason for Visit * Reason Comments Post-Op Encounter Details Date Type Department Care Team Description 04/02/2023 Office Visit Urogynecology [facility] [address] [place] [address] Félix Sandoval MD [address] [place] [address] RUSH (stress urinary incontinence, female)* Allergies Active Allergy Reactions Severity Noted Date Comments Exenatide Hives 07/29/2013 documented as of this encounter (statuses as of 04/02/2023) Medications Medication Sig Dispensed Refills Start Date [...] morning. 0 Active Vitamin A 4.5 MG (08534 UT) Oral Tablet Take by mouth. 0 [...] at bedtime. 180 Capsule 2 11/19/2022 Active Omeprazole 20 MG Oral Capsule Delayed [...] Galcanezumab-gnlm 120 MG/ML Subcutaneous Solution Auto-injector (Emgality) 2 injections first month and then 1 injection there after 1 mL 0 03/14/2023 Active Additional Information Patient not taking.Reported on 03/29/2023 Galcanezumab-gnlm 120 MG/ML Subcutaneous Solution Auto-injector (Emgality) 1 injection every month after the first loading dose 1 mL 0 03/14/2023 Active Additional Information Patient not taking.Reported on 03/29/2023 Estradiol 0.1 MG/GM Vaginal Cream (Estrace) Apply pea sized amount (0.5 gm) vaginally twice a week at bedtime 42.5 g 3 04/02/2023 Active documented as of this encounter (statuses as of 04/02/2023) Active Problems Problem Noted Date Hematoma of breast 03/29/2023 Recurrent major depressive disorder 08/29 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 09/07/2022 Urinary incontinence in female 3 Dyslipidemia 02/22/2022 Kidney stone on left side 10/18/2021 Depressed mood 05/31/2015 Migraine variant 05/31/2015 Eczematous dermatitis of eyelid 10/07/19 13 Dyslipidemia, goal LDL below 100 012 HTN, goal below 130/80 09/12/2011 Type 2 diabetes mellitus wit hout complication, without long-term current use of insulin 07/19/2011 Overview: ICD-10 update of inactive term History of pulmonary embolism 01/01/2008 documented as of this encounter (statuses as of 04/02/2023) Resolved Problems Problem Noted Date Resolved Date Acute suppurative otitis media 03/13/2013 1 Migraine 11/06/2011 05/31/2015 Major depressive disorder 08/24/20112014 Overview: ICD-10 update of inactive term Dyspnea and respiratory abnormality 01/01/2008 12/27/2016 Overview: ICD-10 update of inactive term documented as of this encounter (statuses as of 04/02/2023) Immunizations Name Administration Dates Next Due COVID-19 mRNA, LNP-s, No Pre serve, 2-Dose Series (Moderna) 08/27/2020,07/25/2020 COVID-19, mRNA, LNP-s, PF, B ooster, 100mcg/0.5mg (Moderna) 06/28/2021 Covid-19, Mrna, Lnp-s, Pf, B ivalent, 30 Mcg, IM, 12 yrs and above (Pfizer) 07/27/2022 Hepatitis B, 20+ yrs 10/20/2021,08/23/2021 PPD 03/06/2016 Pneumococcal Conjugate Vacci ne, 20-valent ([id number]) 02/22/2022 Pneumococcal Polysaccharide PPV23 (Pneumovax) 09/12/2011 SEASONAL INFLUENZA, PF, 6 M & Above, IM , (FLULAVAL or FLUZONE) 03/01/2023,03/10/2021 Seasonal Influenza Virus Vac cine, Unspecified Formulation 04/10/2020 Seasonal Influenza, Quadriva lent, No Preserve, IM 04/06/2019,04/15/2018,05/08/2017 Seasonal Influenza, Recombin ant, RIV4, PF, (Flublock) 04/10/2020 Seasonal Influenza, Split, I IV3, With Preserve, Inj 04/27/2016,05/03/2015,05/20/2014,04/29,04/14/2012,04/14/2011 TDAP (age 10 and older)(Boostrix) 11/17/2020 TDAP (age 11 and older)(Adacel) 11/29/2009 Zoster Vaccine Recombinant (Shingrix) 02/17/2021 ,11/17/2020 documented as of this encounter Social History Tobacco Use Types Packs/Day Years Used Date Smoking Tobacco: Never Smokeless Tobacco: Never Tobacco Cessation:Counseling Given: Not Answered Alcohol Use Standard Drinks/Week Comments No 0 (1 standard drink = 0.6 oz pur e alcohol) Food Insecurity Answer Date Recorded Within the past 12 months, y ou worried that your food would run out before you got money to buy more. Never true 10/25/2022 Within the past 12 months, t he food you bought just didn't last and you didn't have money to get more. Never true 10/25/2022 Sex Assigned at Date Recorded Female 05/03/2022 8:55 AM E DT Job Start Date Occupation Industry Not on file Not on file Not on file documented as of this encounter Progress Notes * Félix Sandoval MD - 04/02/2023 9:40 AM EDT Post Operative Appointment HPI: 62 year old female presents today for post op exam following mid-urethral sling FINAL PATHOLOGY: n/a No intra op or post op complications. Returns for 3 weeks post-op visit. Patient reports no problems. Bowel and bladder function have normalized. Voiding well, no dysuria. Pain is well controlled with medications and it is improving Denies fevers or chills. Denies any problems with wound. Denies any vaginal bleeding or discharge. Denies lower extremity swelling. PE: BP .vs General: Pleasant, well nourished, NAD, A&O x 3 Abdomen: Soft and nontender, negative masses, no organomegaly Incision: No induration or fluctuance or erythema. Lower extremities: non-tender and non-edematous Pelvic: Vaginal mucosa healing well. Sutures in place. No evidence of infection, abscess/collectionor separation. Non tender. Impression: - Healing well - Return to full activity on April 08, 2023. - Estrace vaginal cream for the atrophy. Side effects, risks, benefits, and alternatives reviewed. All questions answered. Félix Sandoval MD documented in this encounter Nursing Notes * Tiera Salvador LPN - 04/02/2023 10:10 AM EDT Patient presents for a post op. Denies pain, bleeding and discharge. Denies leaking with LCS. documented in this encounter Plan of Treatment Upcoming Encounters Date Type Specialty Care Team Description 04/04/2023 Office Visit General Surgery Ambrocio Hopkins MD [address] [place] [address] 05/14/2023 Office Visit Gastroenterology Ale Stover, DO [address] [place] [address] 08/22/2023 Hospital Encounter Endoscopy Ale Stovre, DO [address] [place] [address] 08/22/2023 Surgery Endoscopy Ale Stover, DO [address] [place] [address] COLONOSCOPY FLEXIBLE PROXIMAL DIAGNOSTIC 09/17/2023 Office Visit Neurology Talita Rucker PA-C [address] [place] [address] [place] [address] Scheduled Procedures Name Priority Associated Diagnoses Date/Ti me COLONOSCOPY FLEXIBLE PROXIMAL DIAGNOSTIC Recall Family history of colonic polyps 08/22/2023 8:00 AM EST Health Maintenance Due Date Last Done Comments Hepatitis B (3 of 3 - 19+ 3-dose series) 02/20/2022 10/20/2021, 08/23/2021 Depression Screening 02/22/2023 02/22/2022 Diabetic Foot Exam 02/22/2023 02/22/2022, 0 02/17/2021, 12/05/2018, Additional history exists COVID-19 Vaccine (2022- season) 2023 07/27/2022, 06/28/2021, 08/27/2020, Additional history exists COLONOSCOPY-EVERY 5 YRS AGES 18-100 04/24/2023 04/24/2018, 06/26/2010 Albumin/Creatinine Ratio 08/30/2023 023, 08/22/2021, 10/20/2018, Additional history exists HbA1c 09/04/2023 03/06/2023, 03/0 07/2022, 02/28/2022, Additional history exists Mammogram 02/23/2024 02/22/2023, 01/29, 11/23/2021, Additional history exists DIABETES-EYE EXAM 02/26/2024 02/25/2023, , 09/13/2020, Additional history exists [...] this encounter Medical Devices Implanted Type Area Layout Technician Device Identifier Shelf Expiration Date Model / Serial / Lot Sling Babrra Chan - [id number] Implanted:Qty: 1 on 03/08/2023 by Félix Sandoval MD at OR [facility] N/A: Vagina [employer] 03/08/2024 [id number] / / [id number] documented as of this encounter Visit Diagnoses Diagnosis RUSH (stress urinary incontinence, female)- Primary Female stress incontinence Family history of colonic polyps documented in this encounter Advance Directives Latest Code Status on File Code Status Date Activated Date Inactivated Comments Full Code 03/08/2023 9:29 AM 03/08/2023 3:20 PM This or stacey reflects the patients wishes and were consensually agreed upon. Question Answer Comments Discussion of Advance Directives occurred with: Patient Care Teams Cupola Tapper Relationship Specialty Start Date End Date Warner Hernandez DO [address] [place] [address] PCP - General Family Medicine 11/14/20 documented as of this encounter
--- OUTSIDE RECORDS SUMMARY | 2023-09-04 19:24 | External Medical Summary | Summary of Care ---
Author Name Unknown Organization [facility] Address [address] [place] [address] Phone [phone] Care Team Providers Care Assistant Operations Manager Name Role Phone Warner Hernandez DO Primary Care Provider [phone] Reason for Visit * Reason Comments NEW PATIENT Left breast a lump a fter 03/13 biopsy. * Evaluate & Treat - Unlimited Visits (Within 3 days (urgent)) - Pending Review Specialty Diagnoses / Procedures Referred By Chance slaughter Referred To Contact General Surgery Diagnoses Hematoma of breast Magdalena Fry CRNP [address] [place] [address] Referral ID Status Reason Start Date Expiration Date Visits Requested Visits Authorized [id number] Pending Review Specialty Services Required 03/29/[phone] Encounter Details Date Type Department Care Team Description 04/04/2023 Office Visit General Surgery, [facility] [address] [place] [address] Ambrocio Hopkins MD [address] [place] [address] Breast hematoma* Allergies Active Allergy Reactions Severity Noted Date Comments Exenatide Hives 07/29/2013 documented as of this encounter (statuses as of 04/04/2023) Medications Medication Sig Dispensed Refills Start Date End Date Status ASPIRIN 81 MG PO CHEW One pill by mouth once a day with food 100 Tab 5 07/25/2011 Active ONETOPIA GRESHAM LANCING DEV MISCIndications:DM type 2, goal A1C [...] morning. 0 Active Vitamin A 4.5 MG (02529 UT) Oral Tablet Take by mouth. 0 [...] as of this encounter (statuses as of 04/04/2023) Active Problems Problem Noted Date Hematoma of [...] as of this encounter (statuses as of 04/04/2023) Resolved Problems Problem Noted Date Resolved Date Acute suppurative otitis media 03/13/2013 1 Migraine 11/06/2011 05/31/2015 Major depressive disorder 08/24/20112014 Overview: ICD-10 update of inactive term Dyspnea and respiratory abnormality 01/01/2008 12/27/2016 Overview: ICD-10 update of inactive term documented as of this encounter (statuses as of 04/04/2023) Immunizations Name Administration Dates Next Due COVID-19 mRNA, LNP-s, No Pre serve, 2-Dose Series (Moderna) 08/27/2020,07/25/2020 COVID-19, mRNA, LNP-s, PF, B ooster, 100mcg/0.5mg (Moderna) 06/28/2021 Covid-19, Mrna, Lnp-s, Pf, B ivalent, 30 Mcg, IM, 12 yrs and above (Pfizer) 07/27/2022 Hepatitis B, 20+ yrs 10/20/2021,08/23/2021 PPD 03/06/2016 Pneumococcal Conjugate Vacci ne, 20-valent ([id number]) 02/22/2022 Pneumococcal Polysaccharide PPV23 (Pneumovax) 09/12/2011 SEASONAL [...] on file documented as of this encounter Last Filed Vital Signs Vital Sign Reading Time Taken Comments Blood Pressure - - Pulse - - Temperature - - Respiratory Rate - - Oxygen Saturation - - Inhaled Oxygen Concentration - - Weight 72.7 kg (160 lb 3.2 oz) 04/04/2023 9:57 A M EDT Height - - Body Mass Index 27.69 03/29/2023 8:49 AM EDT documented in this encounter Progress Notes * Ambrocio Hopkins MD - 04/04/2023 10:00 AM EDT [facility] Chief Complaint Patient presents with NEW PATIENT Left breast a lump after 03/13 biopsy. REASON FOR CONSULTATION: Left breast hematoma following needle biopsy HISTORY: Zhanna Mcqueen is a 62 year old year old female who is seen at the request of SLOANE Doan for evaluation hematoma of the left breast following a needle biopsy. She underwent mammogram which demonstrated a BI-RADS 4 lesion. She underwent biopsy which demonstrated benign tissue. These were concordant results. She then developed a large hematoma of the left breast. She had been sent here for follow-up. She states the last few days she is noticed the hematoma decreasing in size. She denies drainage. She denies fevers. She denies redness. BREAST HISTORY: Mass: No Breast Pain: no Nipple discharge: No Previous problems/surgeries: core biopsy, left stereotactic Breast Cancer: no Other Cancers: no RADIOLOGIC INTERPRETATION: Result MAMMOGRAM DIAGNOSTIC KRISTA LEFT History Abnormal mammogram The patient has no documented relevant family history. Films Compared 02/08/2023 MAMMOGRAM SCREENING KRISTA BILATERAL, 11/23/2021 MAMMOGRAM SCREENING KRISTA BILATERAL, 11/22/2020 MAMMOGRAM SCREENING KRISTA BILATERAL, 03/16/2019 MAMMOGRAM SCREENING KRISTA BILATERAL, 01/24/2017 RADIOLOGY EXAM - MAMMOGRAPHY (IMAGES ONLY, NO REPORT), and 01/13/2016 RADIOLOGY EXAM - MAMMOGRAPHY (IMAGES ONLY, NO REPORT) Findings The left breast is heterogeneously dense, which may obscure small masses. Group of microcalcifications with associated focal asymmetry seen in the upper central middle to posterior depth. Diagnostic considerations would include a calcifying fibroadenoma versus papilloma among other etiology. Stereotactic guided core biopsy would be helpful to obtain histology diagnosis. Impression Group of microcalcifications with associated focal asymmetry in the upper central middle to posterior depth. Stereotactic guided core biopsy is advised. BI-RADS Category: 4 - Suspicious. Recommendation Stereotactic breast biopsy is recommended for the left breast. The above findings and recommendations were discussed with and understood by the patient. Digital breast tomosynthesis was performed. This digital mammogram has been analyzed with the computer aided detection system. This notice contains the results of your recent mammogram, including information about breast density. If your mammogram shows that your breast tissue is dense, you should know that dense breast tissue is a common finding and is not abnormal. Statistics show many women could have dense or highly dense breasts. Dense breast tissue can make it harder to find cancer on a mammogram and may be associated with an increased risk of cancer. This information about the result of your mammogram is given to you to raise your awareness and to inform your conversations with your physician. Together, you can decide which screening options are right for you, based on your mammogram results, individual risk factors or physical examination. A report of your results was sent to your physician. Your mammographic breast density on today's study is described above. There are four categories of breast density on mammography. Fatty breasts and those with scattered fibroglandular tissue are not considered dense. Heterogeneously dense or extremely dense tissue is considered "dense". Please understand that assessment of breast density may vary from year to year. ADDENDUM: Received from the department of pathology is the histology diagnosis of benign breast tissue with fibroadenomatoid changes with calcifications. No evidence of atypia or malignancy. The histology diagnosis is concordant with imaging findings. Follow-up bilateral mammogram is advised as per routine in January 2024 when patient will be due for her annual follow-up mammogram or sooner if warranted clinically. Mammography Dermatology Sales Representative Patty Mcnamara has been notified for scheduling and tracking purposes. Signed by Nenita Alex MD on 03/20/2023 13:42 Narrative & Impression EXAM MAMMOGRAM BREAST NEEDLE BIOPSY CORE LEFT - 03/13/2023 11:26 am HISTORY Referred for stereotactic guided core biopsy of a group of microcalcifications with associated focal asymmetry in the upper central middle to posterior depth, left breast. COMPARISON Multiple priors to include left diagnostic mammogram 02/22/2023 TECHNIQUE ANESTHESIA: 1% lidocaine/1% lidocaine with epinephrine MEMBER OF CONGRESS: Dr. Bran was present for and performed the entire procedure. The following procedure/examinations were performed: - Stereotactic guided core biopsy and tissue marker placement - Specimen radiograph - Post clip/tissue marker placement unilateral mammogram Following a discussion of the risks and benefits of the procedure as well as a discussion of alternatives to this procedure, the patient was given the opportunity to ask questions. Once the patient'squestions were answered to her satisfaction, informed consent was signed by the patient. A timeout,with verification of patient name and site of procedure was performed by Dr. Bran in the presence of mammography technologists and it was confirmed that procedure matches verbalized consent. FINDINGS PROCEDURE: The group of microcalcifications with associated focal asymmetry in the upper central middle to posterior depth, left breast were localized stereotactically. Using sterile technique and local anesthesia superficially with 1% buffered lidocaine and more deeply with 1% buffered lidocaine mixed with epinephrine, and stereotactic guidance, 9-gauge vacuum assisted core biopsy was performed of the left breast. Please note a surgical blade was utilized to makeis skin incision to permit passage of the 9 gauge vacuum assisted core biopsy needle. Specimen radiograph demonstrates targeted microcalcifications within several core specimen obtained. The core specimen containing microcalcifications were segregated and all core specimen were submitted for histopathologic analysis. Tissue marker was placed at the site of biopsy for future reference and all devices were removed from the breast. Pressure was held at the biopsy site until hemostasis was obtainedand then the dressing was applied. Follow-up unilateral mammogram demonstrates tissue marker at the site of biopsy on cc view and approximately 3 cm inferior migration of the tissue marker on true lateral view. The patient tolerated the procedure well and there were no immediate complications. The patient wasgiven standard written discharge and post procedural instructions, which were also verbally explained to her and she expressed understanding. The patient was discharged from the department in stable condition. IMPRESSION IMPRESSION 1. Stereotactic core biopsy of left breast was performed followed by tissue marker placement. 2. Specimen radiograph demonstrates targeted microcalcifications within several core specimen. The core specimen are submitted for histopathologic analysis. 3. Post procedure unilateral mammogram demonstrates the tissue marker at the site of biopsy on cc view and approximately 3 cm inferior migration of tissue marker on true lateral view. 4. An addendum to this report will follow once the pathology report is received. 5. Further follow-up and management recommendations will be forthcoming pending receipt of pathology diagnosis. MY INTERPRETATION: Concur with the radiology read. PATHOLOGY Component Final Diagnosis A. Breast, Left, calcs, core biopsy: Benign breast tissue with fibroadenomatoid changes with calcifications No evidence of atypia or malignancy B. Breast, Left, non calcs, core biopsy: Benign breast tissue with fibroadenomatoid changes with calcifications No evidence of atypia or malignancy at 1222 Order Comments Left breast stereotactic core biopsy for micro- calcifications- r/o atypia, r/o DCIS, r/o cancer Gross Description A. Breast, Left. Breast, core biopsy Received in formalin with a container labeled with "Zhanna L Richar", "[id number]", "1960" and " left breast calcs". Received are multiple cores of faust-yellow fibroadipose tissue ranging from 0.3 cmto 1.5 cm in length, each approximately 0.3 cm in diameter. The specimen is entirely submitted, wrapped in lens paper in cassettes A1 and A2. Collection/ischemic time: time 11:25 AM, date 03/13/2023, time in formalin: time not provided, date not provided. Gross By: TEODORO B. Breast, Left. Breast, core biopsy Received in formalin with a container labeled with "Zhanna L Forbes", "[id number]", "1960" and " left breast non calcs". Received are multiple cores of faust- yellow fibroadipose tissue ranging from 0.5 cm to 1.7 cm in length, each approximately 0.3 cm in diameter. The specimen is entirely submitted,wrapped in lens paper in cassettes B1 and B2. Collection/ischemic time: time 11:25 AM, date 03/13/2023, time in formalin: time not provided, date not provided. Gross By: TEODORO Sign Out Location Pathologist sign out performed at [facility] ([facility] [address] [place] [id number]. FAMILY HISTORY: Family history of breast or ovarian cancer: None Family history of other cancer: None Family History Problem Relation Age of Onset Diabetes Mother Diabetes Father Diabetes Sister Diabetes Sister Diabetes Grandmother (Maternal) Diabetes Grandfather (Maternal) Diabetes Grandmother (Paternal) Diabetes Grandfather (Paternal) Hypertension Father Renal Hx Mother PAST MEDICAL HISTORY: Past Medical History: Diagnosis Date Diabetes mellitus (HCC) Hypertension Jugular vein thrombosis Migraines PAST SURGICAL HISTORY: Past Surgical History: Procedure Laterality Date CARPAL TUNNEL SURGERY Carpal Tunnel repair COLONOSCOPY, DIAGNOSTIC (RECTUM) 04/24/2018 normal, repeat 5 yrs/[facility] CYSTOSCOPY N/A 03/08/2023 CYSTOURETHROSCOPY performed by Félix Sandoval MD at OR [facility] INFORMATION mandibular and jaw surgery LAP;W/HYSTERECTOMY Hysterectomy Complete LIGATE/CUT OVIDUCT(S) MAMMOGRAM BREAST NEEDLE BIOPSY CORE LEFT Left 03/13/2023 REMOVAL OF APPENDIX REMOVAL OF TONSILS, AGE 12+ REMOVE GALLBLADDER REMOVE NECK SPINE LAMINA, 1-2 SEGS Cervical Laminectomy? C5-c7 REPAIR BLADDER DEFECT N/A 03/08/2023 VAGINAL SLING PROCEDURE FOR STRESS INCONTINENCE performed by Félix Sandoval MD at [facility] TEAR DUCT SYSTEM SURGERY NEC TOTAL ABD HYSTERECTOMY W/WO REMOVAL OF TUBE(S) ALLERGIES: Allergies as of 04/04/2023 - Reviewed 04/04/2023 Allergen Reaction Noted Bydaniel [exenatide] Heraclio 07/29/2013 MEDICATIONS: Current Outpatient Medications Medication Sig Dispense Refill ASPIRIN 81 MG PO CHEW One pill by mouth once a day with food 100 Tab 5 ONETOUCH DELICA LANCING DEV MISC Use as directed up to 4 times daily 1 Each 0 Insulin Pen Needle (BD PEN NEEDLE SHORT U/F) 31G X 8 MM Use up to four times a day and as needed. 180 Each 3 Vitamin D-3 25 MCG (1000 UT) Oral Capsule Take 1 Capsule by mouth in the morning. Vitamin A 4.5 MG (97172 UT) Oral Tablet Take by mouth. Magnesium Oxide 400 MG Oral Capsule Take by mouth 1 Capsule in the morning. 90 Capsule 2 Riboflavin 400 MG Oral Tablet Take by mouth 1 Tablet in the morning. 90 Tablet 2 Ezetimibe 10 MG Oral Tablet (Zetia) Take by mouth 1 Tablet in the morning. (Patient taking differently: Take 1 Tablet by mouth in the morning. Takes in the evening .) 90 Tablet 3 Accu-Chek FastClix Lancet Kit Use to check blood glucose once daily Dx E11.9 1 Kit 0 Accu-Chek Arlen Plus In Vitro Strip (Glucose Blood) Use once daily for glucose testing. 100 Strip 3 D-Care Glucometer w/Device Kit Use as directed. Use as directed for home glucose testing once daily1 Kit 0 Lancets Use as directed once daily for glucose testing. 100 Each 11 Atorvastatin Calcium 80 MG Oral Tablet (Lipitor) Take 1 Tablet by mouth in the morning. (Patient taking differently: Take 1 Tablet by mouth in the morning. Takes in the evening .) 90 Tablet 3 buPROPion HCl ER (SR) 150 MG Oral Tablet Extended Release 12 Hour (Wellbutrin SR) Take 1 Tablet by mouth in the morning and 1 Tablet before bedtime. 180 Tablet 3 SUMAtriptan Succinate 100 MG Oral Tablet Take 1 Tablet by mouth daily as needed for Migraine. May take an additional 1 tab in 24 hours if needed 90 Tablet 1 Glimepiride 4 MG Oral Tablet (Amaryl) Take 1 Tablet by mouth in the morning and 1 Tablet before bedtime. 60 Tablet 5 Dexcom G6 Sensor Use as directed. Use 1 sensor every 10 days 9 Each 3 Dexcom G6 Transmitter Use as directed. Use 1 transmitter every 90 days 1 Each 3 Nortriptyline HCl 10 MG Oral Capsule (Pamelor) Take 2 Capsules by mouth at bedtime. 180 Capsule 2 Omeprazole 20 MG Oral Capsule Delayed Release (PriLOSEC) TAKE 1 CAPSULE IN THE MORNING AND BEFORE BEDTIME 180 Capsule 3 Ozempic (2 MG/DOSE) 8 MG/3ML Subcutaneous Solution Pen-injector (Semaglutide (2 MG/DOSE)) INJECT 0.75 ML UNDER THE SKIN ONCE WEEKLY 9 mL 1 Lisinopril 20 MG Oral Tablet (Prinivil) Take 1 Tablet by mouth in the morning. (Patient taking differently: Take 1 Tablet by mouth in the morning. Takes in the evening .) 90 Tablet 3 Ibuprofen 800 MG Oral Tablet (Motrin) Take 0.75 Tablets by mouth every 8 hours as needed (post op pain). With food. 30 Tablet 0 Galcanezumab-gnlm 120 MG/ML Subcutaneous Solution Auto-injector (Emgality) 2 injections first monthand then 1 injection there after (Patient not taking: Reported on 03/29/2023) 1 mL 0 Galcanezumab-gnlm 120 MG/ML Subcutaneous Solution Auto-injector (Emgality) 1 injection every month after the first loading dose (Patient not taking: Reported on 03/29/2023) 1 mL 0 Estradiol 0.1 MG/GM Vaginal Cream (Estrace) Apply pea sized amount (0.5 gm) vaginally twice a week at bedtime 42.5 g 3 No current facility-administered medications for this visit. 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 Employer: [employer] [id number] Tobacco Use Smoking status: Never Smokeless tobacco: Never Vaping Use Vaping Use: Never used Substance and Sexual Activity Alcohol use: No Drug use: No Sexual activity: Not on file Other Topics Concern Not on file Social History Narrative Not on file Social Determinants of Health Financial Resource Strain: Not on file Food Insecurity: No Food Insecurity Worried About Running Out of Food in the Last Year: Never true Ran Out of Food in the Last Year: Never true Transportation Needs: Not on file Physical Activity: Not on file Stress: Not on file Social Connections: Not on file Intimate Partner Violence: Not on file Housing Stability: Not on file ROS: GEN: no weight loss, fever, fatigue HEENT: no changes in vision or hearing, no sinus problems, no sore throat, no hoarseness RESPIRATORY: no cough, wheezing, SOB or change in breathing CARDIOVASCULAR: no exertional chest pain, dyspnea, palpitations GI: no melena or hemetemeis, no change in bowel habits : no dysuria, hematuria, frequency MUSCULOSKELETAL: no change in joint pains, no new arthritis PSYCHIATRIC: no significant anxiety or depression, unchanged sleep pattern HEME: no bleeding tendency, no clotting tendency NEURO: no significant headache, no seizures , no tremors SKIN: no new rashes, no itching PHYSICAL EXAM: Weight 72.7 kg (160 lb 3.2 oz). Constitutional: alert, healthy, well nourished Head: normocephalic, atraumatic Eyes: conjunctiva non-injected, sclera white Neck: supple, no adenopathy Extremities: no edema, no skin discoloration Neuro: alert, gait normal, motor normal Skin: no obvious rashes or significant lesions BREAST EXAMINATION Left Breast: Evidence of hematoma 12:00 p.m. 4-5 cm from the nipple, measures 2-3 cm, no tenderness to palpation, no erythema or fluctuance There are no surgical scars. ASSESSMENT: Hematoma status post left breast stereotactic biopsy. Improving. PLAN: I reassured her about the hematoma. She is using warm compresses. She will continue to do this. The hematoma will resolve on its own. No surgical intervention is required. We will follow up with her p.r.n.. She will call with any new or concerning symptoms in the meantime. Ambrocio Hopkins MD 04/04/2023 10:00 AM documented in this encounter Nursing Notes * JAMES Damon - 04/04/2023 9:57 AM EDT Chief Complaint Patient presents with NEW PATIENT Left breast a lump after 03/13 biopsy. Verified patient. No pain. Patient states that the lump is getting smaller after made this appointment. documented in this encounter Plan of Treatment Upcoming Encounters Date Type Specialty Care Team Description 05/14/2023 Office Visit Gastroenterology Ale Stover, DO [address] [place] [id number] 08/22/2023 Hospital Encounter Endoscopy Ale Stover, DO [address] [place] [address] 08/22/2023 Surgery Endoscopy Ale Stover, DO [address] [place] [address] COLONOSCOPY FLEXIBLE PROXIMAL DIAGNOSTIC 09/17/2023 Office Visit Neurology Talita Rucker PA-C [address] [facility] [place] [address] Scheduled Procedures Name Priority Associated Diagnoses Date/Ti me COLONOSCOPY FLEXIBLE PROXIMAL DIAGNOSTIC Recall Family history of colonic polyps 08/22/2023 8:00 AM EST Scheduled Referrals Name Type Priority Associated Diagnoses Orde r Schedule SURGERY REFERRAL OP Referral Within 3 day s (urgent) Hematoma of breast Ordered: 03/29/2023 Health Maintenance Due Date Last Done Comments [...] this encounter Medical Devices Implanted Type Area Butt Presser Device Identifier Shelf Expiration Date Model / Serial / Lot Sling Barbra Chan - [id number] Implanted:Qty: 1 on 03/08/2023 by Félix Sandoval MD at OR [facility] N/A: Vagina [employer] 03/08/2024 [id number] / / [id number] documented as of this encounter Visit Diagnoses Diagnosis Breast hematoma- Primary Other specified disorders of breast Family history of colonic polyps documented in this encounter Advance Directives Latest Code Status on File Code Status Date Activated Date Inactivated Comments Full Code 03/08/2023 9:29 AM 03/08/2023 3:20 PM This or stacey reflects the patients wishes and were consensually agreed upon. Question Answer Comments Discussion of Advance Directives occurred with: Patient Care Teams Assistant Operations Manager Relationship Specialty Start Date End Date Warner Hernandez DO [address] [place] [id number] PCP - General Family Medicine 11/14/20 documented as of this encounter
--- OUTSIDE RECORDS SUMMARY | 2023-09-04 19:24 | External Medical Summary | Summary of Care ---
Author Name Unknown Organization [facility] Address [address] [facility] [place] [address] Phone [phone] Care Team Providers Care Systems Accountant Name Role Phone Unavailable Primary Care Provider Unavailabl e Encounter Details Date Type Department Care Team (Late st Contact Info) Description 07/31/2023 Orders Only Pharmacy, [facility] [address] [facility] [place] [address] Shy Sultana, [facility] [address] [facility] [place] [address] Dyslipidemia, goal LDL below 100 Allergies Active Allergy Reactions Criticality Noted Date Comments Exenatide Hives 07/29/2013 documented as of this encounter (statuses as of 07/31/2023) Medications Medication Sig Dispensed Refills Start Date [...] morning. 0 Active Vitamin A 4.5 MG (88977 UT) Oral Tablet Take by mouth. 0 [...] hemoglobin A1c goal of less than 7.0% ([facility]) Use as directed. Use as directed for home glucose testing once daily 1 Kit 0 07/30/2022 Active LancetsIndication s:Type 2 diabetes mellitus with hemoglobin A1c goal of less than 7.0% ([facility]) Use as directed once daily for glucose [...] or chew. 50 Capsule 1 06/14/2023 Active Galcanezumab-gnlm 120 MG/ML Subcutaneous Solution Auto-injector (Emgality) Inject 120 mg once a month 1 mL 5 07/31/2023 Active Accu-Chek Arlen Plus In Vitro Strip (Glucose Blood)Indications :Type 2 diabetes mellitus with hemoglobin A1c goal of less than 7.0% ([facility]) Use once daily for glucose testing. 100 [...] the morning. 90 Tablet 0 07/31/2023 Active Atorvastatin Calcium 80 MG Oral Tablet (Lipitor)Indicati ons:Dyslipidemia, goal LDL below 100 Take 1 Tablet by mouth in the morning. Takes in the evening . 90 Tablet 0 07/31/2023 Discontinue d(Refill) documented as of this encounter (statuses as of 07/31/2023) Active Problems Problem Noted Date Diagnosed Date [...] as of this encounter (statuses as of 07/31/2023) Resolved Problems Problem Noted Date Diagnosed Date Resolved Date Acute suppurative otitis media 03/13/2013 04/30/2013 Migraine 11/06/2011 05/31/2015 Major depressive disorder 08/24/2011 Overview: ICD-10 update of inactive term Dyspnea and respiratory abnormality 01/01/2008 12/27/2016 Overview: ICD-10 update of inactive term documented as of this encounter (statuses as of 07/31/2023) Immunizations Name Administration Dates Next Due COVID-19 mRNA, LNP-s, No Pre serve, 2-Dose Series (Moderna) 08/27/2020,07/25/2020 COVID-19, mRNA, LNP-s, PF, B ooster, 100mcg/0.5mg (Moderna) 06/28/2021 Covid-19, Mrna, Lnp-s, Pf, B ivalent, 30 Mcg, IM, 12 yrs and above ([facility]) 07/27/2022 Hepatitis B, 20+ yrs 10/20/2021,08/23/2021 PPD 03/06/2016 Pneumococcal Conjugate Vacci ne, 20-valent ([id number]) 02/22/2022 Pneumococcal Polysaccharide PPV23 (Pneumovax) 09/12/2011 Seasonal [...] on file documented as of this encounter Plan of Treatment Upcoming Encounters Date Type Department Care Team (Latest Contact Info) Description 09/17/2023 2:00 PM EDT Office Visit Neurology [facility] [address] [place] [address] Talita Rucker PA-C [address] [place] [address] 11/18/2023 9:20 AM EDT Office Visit Gastroenterology, [facility] [address] [place] [address] Ale Stover DO 12/24/2023 8:00 AM EDT Hospital Encounter ENDO O[facility], Endoscopy Room [facility] [address] [place] [phone] Tamara Echeverria MD [address] [place] [address] 12/24/2023 8:00 AM EDT - 12/24/2023 8:30 AM EDT Surgery ENDO [facility], Endoscopy Room [facility] [address] [place] [address] Tamara Echeverria MD [address] [place] [address] COLONOSCOPY FLEXIBLE PROXIMAL DIAGNOSTIC Scheduled Procedures Name [...] this encounter Medical Devices Implanted Type Area Windows Server Support Technician Device Identifier Shelf Expiration Date Model / Serial / Lot Sling Barbra One - [id number] Implanted:Qty: 1 on 03/08/2023 by Félix Sandoval MD at OR [facility] N/A: Vagina [employer] 03/08/2024 [id number] / / [id number] documented as of this encounter Visit Diagnoses Diagnosis Dyslipidemia, goal LDL below 100 Other and unspecified hyperlipidemia Family history of colonic polyps documented in this encounter Advance Directives Latest Code Status on File Code Status Date Activated Date Inactivated Comments Full Code 03/08/2023 9:29 AM 03/08/2023 3:20 PM This or stacey reflects the patients wishes and were consensually agreed upon. Question Answer Comments Discussion of Advance Directives occurred with: Patient
--- OUTSIDE RECORDS SUMMARY | 2023-09-04 19:24 | External Medical Summary | Summary of Care ---
Author Name Unknown Organization [facility] Address [address] [facility] [place] [address] Phone [phone] Care Team Providers Care Tracer Bullet Section Supervisor Name Role Phone Warner Hernandez DO Primary Care Provider Reason for Visit * Reason Onset Date Comments Health Maintenance 04/03/2023 Encounter Details Date Type Department Care Team Description 04/03/2023 Telephone Family Practice [facility] [address] [place] [address] Warner Hernandez DO [address] [place] [address] Health Maintenance Allergies Active Allergy Reactions Severity Noted Date Comments Exenatide Hives 07/29/2013 documented as of this encounter (statuses as of 04/03/2023) Medications Medication Sig Dispensed Refills Start Date [...] morning. 0 Active Vitamin A 4.5 MG (81847 UT) Oral Tablet Take by mouth. 0 [...] as of this encounter (statuses as of 04/03/2023) Active Problems Problem Noted Date Hematoma of [...] as of this encounter (statuses as of 04/03/2023) Resolved Problems Problem Noted Date Resolved Date Acute suppurative otitis media 03/13/2013 1 Migraine 11/06/2011 05/31/2015 Major depressive disorder 08/24/20112014 Overview: ICD-10 update of inactive term Dyspnea and respiratory abnormality 01/01/2008 12/27/2016 Overview: ICD-10 update of inactive term documented as of this encounter (statuses as of 04/03/2023) Immunizations Name Administration Dates Next Due COVID-19 mRNA, LNP-s, No Pre serve, 2-Dose Series (Moderna) 08/27/2020,07/25/2020 COVID-19, mRNA, LNP-s, PF, B ooster, 100mcg/0.5mg (Moderna) 06/28/2021 Covid-19, Mrna, Lnp-s, Pf, B ivalent, 30 Mcg, IM, 12 yrs and above (Pfizer) 07/27/2022 Hepatitis B, 20+ yrs 10/20/2021,08/23/2021 PPD 03/06/2016 Pneumococcal Conjugate Vacci ne, 20-valent ([id number]) 02/22/2022 Pneumococcal Polysaccharide PPV23 (Pneumovax) 09/12/2011 SEASONAL [...] encounter Miscellaneous Notes * Telephone Encounter - Awa Fisher LPN - 04/03/2023 2:28 PM EDT Care Gaps Comprehensive Care Outreach Last Office/Telemedicine Visit: 03/29/2023 (in office), 09/02/2020 (telemedicine) Next Office Visit: Visit date not found Hemoglobin AIC Results: Lab Results Component Value Date/Time HEMOGLOBIN A1C - [facility] 7.2 (H) 02/16/2021 07:11 AM HEMOGLOBIN A1C - [facility] 6.7 (H) 12/29/2016 08:45 AM HEMOGLOBIN A1C - [facility] 7.0 (H) 06/25/2016 07:10 AM HEMOGLOBIN A1C - [facility] 6.9 (H) 12/10/2015 09:01 AM Reviewed Health Maintenance below: Health Maintenance Topic Date Due Hepatitis B (3 of 3 - 19+ 3-dose series) 02/20/2022 Diabetic Foot Exam 02/22/2023 Depression Screening 02/22/2023 COVID-19 Vaccine ( season) 2023 COLONOSCOPY-EVERY 5 YRS AGES 18-100 04/24/2023 Already reached out Care Gap Outreach Action Taken: Outreach not indicated documented in this encounter Plan of Treatment Upcoming Encounters Date Type Specialty Care Team Description 04/04/2023 Office Visit General Surgery Ambrocio Hopkins MD [address] [place] [address] 05/14/2023 Office Visit Gastroenterology Ale Stover, DO [address] [place] [address] 08/22/2023 Hospital Encounter Endoscopy Ale Stover, DO [address] [place] [address] 08/22/2023 Surgery Endoscopy Ale Stover, DO [address] [place] [address] COLONOSCOPY FLEXIBLE PROXIMAL DIAGNOSTIC 09/17/2023 Office Visit Neurology [place] Rucker PA-C [address] [facility], [place] [address] Scheduled Procedures Name Priority Associated Diagnoses Date/Ti [...] this encounter Medical Devices Implanted Type Area Gritting Machine Operator Device Identifier Shelf Expiration Date Model / Serial / Lot Slphilip Chan - [id number] Implanted:Qty: 1 on 03/08/2023 by Félix Sandoval MD at OR [facility] N/A: Vagina [employer] 03/08/2024 [id number] / / [id number] documented as of this encounter Advance Directives Latest Code Status on File Code Status Date Activated Date Inactivated Comments Full Code 03/08/2023 9:29 AM 03/08/2023 3:20 PM This or stacey reflects the patients wishes and were consensually agreed upon. Question Answer Comments Discussion of Advance Directives occurred with: Patient Care Teams Tracer Bullet Section Supervisor Relationship Specialty Start Date End Date Warner Hernandez DO [address] [place] [address] PCP - General Family Medicine 11/14/20 documented as of this encounter
--- OUTSIDE RECORDS SUMMARY | 2023-09-04 19:24 | External Medical Summary | Summary of Care ---
Author Name Unknown Organization [facility] Address [address] [facility] [address] Phone [phone] Care Team Providers Care Director Of Programming Name Role Phone Unavailable Primary Care Provider Unavailabl e Encounter Details Date Type Department Care Team (Late st Contact Info) Description 07/31/2023 Orders Only Pharmacy, [facility] [address] [facility] [place] [address] Shy Sultana, [facility] 21 [facility] [place] [address] Type 2 diabetes mellitus with hemoglobin A1c goal of less than 7.0% ([facility]); Dyslipidemia, goal LDL below 100; Depressed mood; Gastroesophageal reflux disease Allergies Active Allergy Reactions Criticality Noted Date [...] morning. 0 Active Vitamin A 4.5 MG (03358 UT) Oral Tablet Take by mouth. 0 [...] Dx E11.9 1 Kit 0 07/31/2023 Active Atorvastatin Calcium 80 MG Oral Tablet (Lipitor)Indicati ons:Dyslipidemia, goal LDL below 100 Take 1 Tablet by mouth in the morning. Takes in the evening . 90 Tablet 0 07/31/2023 Active buPROPion HCl ER (SR) [...] BEFORE BEDTIME 180 Capsule 0 07/31/2023 Active Accu-Chek FastClix Lancet Kit Use to check blood glucose once daily Dx E11.9 1 Kit 0 07/19/2022 4 Discontinue d(Refill) Accu-Chek Arlen Plus In Vitro Strip (Glucose Blood)Indications :Type 2 diabetes mellitus with hemoglobin A1c goal of less than 7.0% ([facility]) Use once daily for glucose testing. 100 Strip 3 07/30/2022 4 Discontinue d(Refill) Atorvastatin Calcium 80 MG Oral Tablet (Lipitor)Indicati ons:Dyslipidemia, goal LDL below 100 Take 1 Tablet by mouth in the morning. 90 Tablet 3 09/10/2022 4 Discontinue d(Refill) buPROPion HCl ER (SR) 150 MG Oral Tablet Extended Release 12 Hour (Wellbutrin SR)Indications:De pressed mood Take 1 Tablet by mouth in the morning and 1 Tablet before bedtime. 180 Tablet 3 09/10/2022 4 Discontinue d(Refill) Glimepiride 4 MG Oral Tablet (Amaryl) Take 1 Tablet by mouth in the morning and 1 Tablet before bedtime. 60 Tablet 5 09/10/2022 4 Discontinue d(Refill) Dexcom G6 Sensor Use as directed. Use 1 sensor every 10 days 9 Each 3 10/24/2022 4 Discontinue d(Refill) Dexcom G6 Transmitter Use as directed. Use 1 transmitter every 90 days 1 Each 3 10/24/2022 4 Discontinue d(Refill) Omeprazole 20 MG Oral Capsule Delayed Release (PriLOSEC)Indicat ions:Gastroesopha geal reflux disease TAKE 1 CAPSULE IN THE MORNING AND BEFORE BEDTIME 180 Capsule 3 12/08/2022 4 Discontinue d(Refill) documented as of this encounter [...] PPD 03/06/2016 Pneumococcal Conjugate Vacci ne, 20-valent ([id number]) 02/22/2022 Pneumococcal Polysaccharide PPV23 (Pneumovax) 09/12/2011 Seasonal [...] 09/17/2023 2:00 PM EDT Office Visit Neurology [facility] [address] [place] [address] Talita Rucker PA-C [address] [place] [address] 11/18/2023 9:20 AM EDT Office Visit Gastroenterology, [facility] [address] [facility] [place] [address] Ale Stover DO 12/24/2023 8:00 AM EDT Hospital Encounter ENDO [facility], Endoscopy Room [facility] [address] [place] [phone] Tamara Echeverria MD [address] [place] [address] 12/24/2023 8:00 AM EDT - 12/24/2023 8:30 AM EDT Surgery ENDO [facility], Endoscopy Room [facility] [address] [place] [address] Tamara Echeverria MD [address] [place] [address] COLONOSCOPY FLEXIBLE PROXIMAL DIAGNOSTIC Scheduled Procedures Name [...] 10/20/2018, Additional history exists HbA1c 09/04/2023 03/06/2023, 0307/2022, 02/28/2022, Additional history exists Mammogram 02/23/2024 02/22/2023, [...] this encounter Medical Devices Implanted Type Area Barrel Stave Inspector Device Identifier Shelf Expiration Date Model / Serial / Lot Sling Barbra One - [id number] Implanted:Qty: 1 on 03/08/2023 by Félix Sandoval MD at OR [facility] N/A: Vagina [employer] 03/08/2024 [id number] / / [id number] documented as of this encounter Visit Diagnoses Diagnosis Type 2 diabetes mellitus with hemoglobin A1c goal of less than 7.0% (HCC) Dyslipidemia, goal LDL below 100 Other and unspecified hyperlipidemia Depressed mood Gastroesophageal reflux disease Esophageal reflux Family history of colonic polyps documented in this encounter Advance Directives Latest Code Status on File Code Status Date Activated Date Inactivated Comments Full Code 03/08/2023 9:29 AM 03/08/2023 3:20 PM This or stacey reflects the patients wishes and were consensually agreed upon. Question Answer Comments Discussion of Advance Directives occurred with: Patient
--- OUTSIDE RECORDS SUMMARY | 2023-09-04 19:24 | External Medical Summary | Summary of Care ---
Author Name Unknown Organization [facility] Address [address] [facility] [place] [address] Phone [phone] Care Team Providers Care Dental Practitioner Name Role Phone Unavailable Primary Care Provider Unavailabl e Reason for Visit * Reason Onset Date Comments Medication Refill 07/31/2023 Encounter Details Date Type Department Care Team (Late st Contact Info) Description 07/31/2023 Refill Neurology [facility] [place] [address] [facility] [place] [address] Archie Norton MD [address] [facility] [place] [address] Allergies Active Allergy Reactions Criticality Noted Date [...] morning. 0 Active Vitamin A 4.5 MG (91345 UT) Oral Tablet Take by mouth. 0 [...] Strip 3 07/30/2022 Active D-Care Glucometer w/Device KitIndications:Ty pe 2 diabetes [...] 09/10/2022 Active SUMAtriptan Succinate 100 MG Oral TabletIndications [...] a month 1 mL 5 07/31/2023 Active Galcanezumab-gnlm 120 MG/ML Subcutaneous Solution Auto-injector (Emgality) Inject 120 mg once a month 1 mL 5 05/28/2023 4 Discontinue d(Refill) documented as of this [...] 30 Mcg, IM, 12 yrs and above ([employer]) 07/27/2022 Hepatitis B, 20+ yrs 10/20/2021,08/23/2021 PPD 03/06/2016 Pneumococcal Conjugate Vacci ne, 20-valent ([id number]) 02/22/2022 Pneumococcal Polysaccharide PPV23 (Pneumovax) 09/12/2011 Seasonal [...] encounter Miscellaneous Notes * Telephone Encounter - Talita Rucker PA-C - 07/31/2023 8:26 AM EST Signed Prescriptions: Disp Refills Galcanezumab-gnlm 120 MG/ML Subcutaneous S*1 mL 5 Sig: Inject 120 mg once a month Authorizing Provider: TALITA RUCKER * Telephone Encounter - Cassandra Mcnamara, [employer] - 07/31/2023 7:53 AM EST Pending Prescriptions: Disp Refills Galcanezumab-gnlm 120 MG/ML Subcutaneous S*1 mL 5 Sig: Inject 120 mg once a month documented in this encounter Plan of Treatment Upcoming Encounters Date Type Department Care Team (Latest Contact Info) Description 09/17/2023 2:00 PM EDT Office Visit Neurology [facility] [address] [place] [address] Talita Rucker PA-C [address] [facility] [place] [address] 11/18/2023 9:20 AM EDT Office Visit Gastroenterology, [facility] [address] [place] [address] Ale Stover DO 12/24/2023 8:00 AM EDT Hospital Encounter ENDO [facility], Endoscopy Room [facility] [address] [place] [phone] Tamara Echeverria MD [address] [place] [address] 12/24/2023 8:00 AM EDT - 12/24/2023 8:30 AM EDT Surgery ENDO [facility], Endoscopy Room [facility] [address] [place] [phone] Tamara Echeverria MD [address] [place] [address] COLONOSCOPY FLEXIBLE PROXIMAL DIAGNOSTIC Scheduled Procedures Name [...] this encounter Medical Devices Implanted Type Area Manager Of Finance Device Identifier Shelf Expiration Date Model / Serial / Lot Sling Barbra Chan - [id number] Implanted:Qty: 1 on 03/08/2023 by Félix Sandoval MD at OR [facility] N/A: Vagina [employer] 03/08/2024 [id number] / / [id number] documented as of this encounter Advance Directives Latest Code Status on File Code Status Date Activated Date Inactivated Comments Full Code 03/08/2023 9:29 AM 03/08/2023 3:20 PM This or stacey reflects the patients wishes and were consensually agreed upon. Question Answer Comments Discussion of Advance Directives occurred with: Patient
--- OUTSIDE RECORDS SUMMARY | 2023-09-04 19:24 | External Medical Summary | Summary of Care ---
Author Name Unknown Organization [facility] Address [address] [facility] [place] [address] Phone [phone] Care Team Providers Care Custodial Foreman Name Role Phone Warner Hernandez DO Primary Care Provider [phone] Reason for Visit * Reason Comments Follow Up GERD, Encounter Details Date Type Department Care Team (Latest Contact Info) Description 05/14/2023 8:40 AM EST Office Visit Gastroenterology, [facility] [address] [place] [address] Ale Stover DO [address] [place] [address] Gastroesophageal reflux disease, unspecified whether esophagitis present*; Gastroparesis Allergies Active Allergy Reactions Criticality Noted Date Comments Exenatide Hives 07/29/2013 documented as of this encounter (statuses as of 05/14/2023) Medications Medication Sig Dispensed Refills Start Date [...] morning. 0 Active Vitamin A 4.5 MG (00131 UT) Oral Tablet Take by mouth. 0 [...] Additional Information Patient not taking.Reported on 05/14/2023 Galcanezumab-gnlm 120 MG/ML Subcutaneous Solution Auto-injector (Emgality) Inject 120 mg once a month 1 mL 5 05/06/2023 Active documented as of this encounter (statuses as of 05/14/2023) Active Problems Problem Noted Date Diagnosed Date [...] as of this encounter (statuses as of 05/14/2023) Resolved Problems Problem Noted Date Diagnosed Date Resolved Date Acute suppurative otitis media 03/13/2013 04/30/2013 Migraine 11/06/2011 05/31/2015 Major depressive disorder 08/24/2011 Overview: ICD-10 update of inactive term Dyspnea and respiratory abnormality 01/01/2008 12/27/2016 Overview: ICD-10 update of inactive term documented as of this encounter (statuses as of 05/14/2023) Immunizations Name Administration Dates Next Due COVID-19 mRNA, LNP-s, No Pre serve, 2-Dose Series (Moderna) 08/27/2020,07/25/2020 COVID-19, mRNA, LNP-s, PF, B ooster, 100mcg/0.5mg (Moderna) 06/28/2021 Covid-19, Mrna, Lnp-s, Pf, B ivalent, 30 Mcg, IM, 12 yrs and above (Pfizer) 07/27/2022 Hepatitis B, 20+ yrs 10/20/2021,08/23/2021 PPD 03/06/2016 Pneumococcal Conjugate Vacci ne, 20-valent ([id number]) 02/22/2022 Pneumococcal Polysaccharide PPV23 (Pneumovax) 09/12/2011 SEASONAL [...] Sign Reading Time Taken Comments Blood Pressure 180/82 05/14/2023 8:35 AM EST Pulse 82 05/14/2023 8:35 AM EST Temperature 36.6 C (97.9 F) 05/14/2023 8:35 AM ES T Respiratory Rate - - Oxygen Saturation 98% 05/14/2023 8:35 AM EST Inhaled Oxygen Concentration - - Weight 72.5 kg (159 lb 14.4 oz) 05/14/2023 8:35 AM EST Height - - Body Mass Index 27.64 03/29/2023 8:49 AM EDT documented in this encounter Progress Notes * Ale Stover, DO - 05/14/2023 8:50 AM EST Recall that Ms. Mcqueen is a 62 year old female with diabetes who is seen in follow up for gastroparesis and GERD. Some problems with epigastric pain and burning. No recent vomiting. Worse when she eats large quantities. On daily omeprazole and PRN Zantac. Symptoms of nausea intermittently. She had a GES done at [facility] which was consistent with gastroparesis. She is not on any medications which may slow gastric emptying. Not a good candidate for Reglan. Having BMs daily but then has one day a week has severe diarrhea. Patient Active Problem List Diagnosis Code History of pulmonary embolism Z86.711 Type 2 diabetes mellitus without complication, without long-term current use of insulin ([facility]) E11.9 HTN, goal below 130/80 I10 Dyslipidemia, goal LDL below 100 E78.5 Eczematous dermatitis of eyelid H01.139 Depressed mood R45.89 Migraine variant G43.809 Kidney stone on left side N20.0 Dyslipidemia E78.5 Recurrent major depressive disorder (HCC) F33.9 Type 2 diabetes mellitus with diabetic dermatitis ([facility]) E11.620 Urinary incontinence in female R32 Hematoma of breast N64.89 Past Surgical History: Procedure Laterality Date CARPAL TUNNEL SURGERY Carpal Tunnel repair COLONOSCOPY, DIAGNOSTIC (RECTUM) 04/24/2018 normal, repeat 5 yrs/[facility] CYSTOSCOPY N/A 03/08/2023 CYSTOURETHROSCOPY performed by Félix Sandoval MD at OR [facility] INFORMATION mandibular and jaw surgery LAP;W/HYSTERECTOMY Hysterectomy Complete LIGATE/CUT OVIDUCT(S) MAMMOGRAM BREAST NEEDLE BIOPSY CORE LEFT Left 03/13/2023 REMOVAL OF APPENDIX REMOVAL OF TONSILS, AGE 12+ REMOVE GALLBLADDER REMOVE NECK SPINE LAMINA, 1-2 SEGS Cervical Laminectomy? 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 [employer] Social History Main Topics Smoking status: Never Smoker Smokeless tobacco: Never Used Alcohol Use: No Drug Use: No Sexual Activity: Not on file Other Topics Concern Not on file Social History Narrative Family History Problem Relation Age of Onset Diabetes Mother Diabetes Father Diabetes Sister Diabetes Sister Diabetes Grandmother (Maternal) Diabetes Grandfather (Maternal) Diabetes Grandmother (Paternal) Diabetes Grandfather (Paternal) Hypertension Father Renal Hx Mother Review of patient's allergies indicates: Allergen Reactions Bydureon [Exenatide] Hives Current Outpatient Medications Medication Sig Dispense Refill ASPIRIN 81 MG PO CHEW One pill by mouth once a day with food 100 Tab 5 Insulin Pen Needle (BD PEN NEEDLE SHORT U/F) 31G X 8 MM Use up to four times a day and as needed. 180 Each 3 Vitamin D-3 25 MCG (1000 UT) Oral Capsule Take 1 Capsule by mouth in the morning. Vitamin A 4.5 MG (74613 UT) Oral Tablet Take by mouth. Magnesium [...] before bedtime. 60 Tablet 5 Dexcom G6 Transmitter Use as directed. Use 1 transmitter every 90 days 1 Each 3 Omeprazole 20 MG Oral Capsule Delayed Release (PriLOSEC) TAKE 1 CAPSULE IN THE MORNING AND BEFORE BEDTIME 180 Capsule 3 Lisinopril 20 MG Oral Tablet (Prinivil) Take [...] the first loading dose 1 mL 0 Galcanezumab-gnlm 120 MG/ML Subcutaneous Solution Auto-injector (Emgality) Inject 120 mg once a month 1 mL 5 ONETOUCH DELICA LANCING DEV MISC Use as directed up to 4 times daily 1 Each 0 Dexcom G6 Sensor Use as directed. Use 1 sensor every 10 days 9 Each 3 Nortriptyline HCl 10 MG Oral Capsule (Pamelor) Take 2 Capsules by mouth at bedtime. (Patient not taking: Reported on 05/14/2023) 180 Capsule 2 Ozempic (2 MG/DOSE) 8 MG/3ML Subcutaneous Solution Pen-injector (Semaglutide (2 MG/DOSE)) INJECT 0.75 ML UNDER THE SKIN ONCE WEEKLY 9 mL 1 Estradiol 0.1 MG/GM Vaginal Cream (Estrace) Apply pea sized amount (0.5 gm) vaginally twice a week at bedtime (Patient not taking: Reported on 05/14/2023) 42.5 g 3 No current facility-administered medications for this visit. ROS EXAM: No lightheadedness, dizziness No fevers, chills, sweats No vision loss, eye pain, redness No oral ulcers No chest pain, palpitations, syncope No cough, shortness of breath, exertional dyspnea No weight loss, early satiety. Normal appetite No heartburn, dysphagia, or odynophagia No abdominal pain Occasional nausea, vomiting No hematemesis Episodes diarrhea No constipation, melena, hematochezia No rashes or other lesions No joint pain, swelling, myalgias No edema 12 systems reviewed and negative except as noted EXAM: BP 180/82 | Pulse 82 | Temp 36.6 C (97.9 F) | Wt 72.5 kg (159 lb 14.4 oz) | SpO2 98% | BMI 27.64 kg/m | BSA 1.81 m GEN: pleasant, female, no acute distress HEENT: sclera anicteric, conjunctiva pink and noninjected, mucosa moist, no oral lesions SKIN: no jaundice, no stigmata of chronic liver disease, no rashes NECK: supple, no JVD, no adenopathy CV: regular rate and rhythm, normal S2 and S2, no murmurs, gallops, or rubs LUNGS: clear to auscultation, no wheezes, rales, or rhonchi ABD: soft, non-tender, non-distended, no masses or organomegaly, no appreciable ascites, normal bowel sounds EXT: no clubbing, cyanosis, or edema, peripheral pulses intact NEURO: CN 2-12 grossly intact, No focal deficits, normal strength and sensation, oriented IMPRESSION: 536.3 Gastroparesis (primary encounter diagnosis) 62 year old female with DM and gastroparesis and GERD. Well controlled. Intermittent episodes of loose stool for a day. Then normal BMs rest of week. RECOMMENDATIONS: Colonoscopy every 5 years for family history of colon cancer. Last was 2018. Due this year Continue current reflux meds. Reviewed the dx of gastroparesis and importance of keeping her DM under control. Reviewed gastroparesis diet. Mrs. Mcqueen expressed understanding of the above recommendations and all questions were answered. Ale Stover DO Gastroenterology documented in this encounter Nursing Notes * Libby Powers LPN - 05/14/2023 8:38 AM EST Patient identified by name and date of . Chief Complaint Patient presents with Follow Up GERD, Pt doing well, did have an issues a few weeks ago, but fine now. documented in this encounter Plan of Treatment Upcoming Encounters Date Type Department Care Team (Latest Contact Info) Description 08/22/2023 8:00 AM EST Hospital Encounter ENDO [facility], Endoscopy Room [facility] [address] [place] [address] Ale Stover, DO [address] [place] [address] 08/22/2023 8:00 AM EST - 08/22/2023 8:30 AM EST Surgery ENDO [facility], Endoscopy Room [facility] [address] [place] [address] Ale Stover, DO [address] [place] [address] COLONOSCOPY FLEXIBLE PROXIMAL DIAGNOSTIC 09/17/2023 2:00 PM EDT Office Visit [facility] [address] [facility] [place] [address] Talita Rucker PA-C [address] [facility] [place] [address] 11/18/2023 9:20 AM EDT Office Visit Gastroenterology, [facility] [address] [place] [address] Ale Stover, DO [address] [place] [address] Scheduled Procedures Name Priority Associated Diagnoses Date/Ti me COLONOSCOPY FLEXIBLE PROXIMAL DIAGNOSTIC Recall Family history of colonic polyps 08/22/2023 8:00 AM EST Health Maintenance Due Date Last Done Comments Hepatitis B (3 of 3 - Risk 3-dose series) 02/20/2022 10/20/2021, 08/23/2021 Depression Screening 02/22/2023 02/22/2022 Diabetic Foot Exam 02/22/2023 02/22/2022, 0 02/17/2021, 12/05/2018, Additional history exists COVID-19 Vaccine (5 - 2022-24 season) 2023 07/27/2022, 06/28/2021, 08/27/2020, Additional history [...] this encounter Medical Devices Implanted Type Area Ship Purser Device Identifier Shelf Expiration Date Model / Serial / Lot Zulema Chan - [id number] Implanted:Qty: 1 on 03/08/2023 by Félix Sandoval MD at OR [facility] N/A: Vagina [employer] 03/08/2024 [id number] / / [id number] documented as of this encounter Visit Diagnoses Diagnosis Gastroesophageal reflux disease, unspecified whether esophagitis present- Primary Gastroparesis Family history of colonic polyps documented in this encounter Advance Directives Latest Code Status on File Code Status Date Activated Date Inactivated Comments Full Code 03/08/2023 9:29 AM 03/08/2023 3:20 PM This or stacey reflects the patients wishes and were consensually agreed upon. Question Answer Comments Discussion of Advance Directives occurred with: Patient Care Teams Custodial Foreman Relationship Specialty Start Date End Date Warner Hernandez DO PCP - General Family Medicine 11/14/20 documented as of this encounter"
--- OUTSIDE RECORDS SUMMARY | 2023-09-04 19:24 | External Medical Summary | Summary of Care ---
Author Name Unknown Organization [facility] Address [address] [facility] [place] [address] Phone [phone] Care Team Providers Care Junior Automation Engineer Name Role Phone Unavailable Primary Care Provider Unavailabl e Reason for Visit * Reason Onset Date Comments Medication Refill 07/31/2023 Encounter Details Date Type Department Care Team (Late st Contact Info) Description 07/31/2023 Refill Family Practice [facility] [address] [facility] [place] [address] Warner Hernandez, DO [address] [place] [id number] Type 2 diabetes mellitus with hemoglobin A1c goal of less than 7.0% ([facility]); Dyslipidemia, goal LDL below 100; Depressed mood; Migraine variant; Gastroesophageal reflux disease Allergies Active Allergy Reactions Criticality Noted Date Comments Exenatide Hives 07/29/2013 documented as of this encounter (statuses as of 08/01/2023) Medications Medication Sig Dispensed Refills Start Date [...] morning. 0 Active Vitamin A 4.5 MG (86646 UT) Oral Tablet Take by mouth. 0 [...] evening, Reported on 03/06/2023 D-Care Glucometer w/Device KitIndications:Type 2 diabetes mellitus with hemoglobin A1c goal of less than 7.0% ([facility]) Use as directed. Use as directed for home glucose testing once daily 1 Kit 0 07/30/2022 Active LancetsIndications: Type 2 diabetes mellitus with hemoglobin A1c goal of less than 7.0% ([facility]) Use as directed once daily for glucose testing. 100 Each 11 07/30/2022 Active SUMAtriptan Succinate 100 MG Oral TabletIndications:M [...] hyperglycemia, without long-term current use of insulin ([facility]) INJECT 0.75 ML UNDER THE SKIN ONCE [...] skin every month. 1 mL 5 07/31/2023 Active Accu-Chek Arlen Plus In Vitro Strip (Glucose Blood)Indications:T ype 2 diabetes mellitus with hemoglobin A1c goal of less than 7.0% ([facility]) Use once daily for glucose testing. 100 [...] the morning. 90 Tablet 0 07/31/2023 Active documented as of this encounter (statuses as of 08/01/2023) Active Problems Problem Noted Date Diagnosed Date [...] as of this encounter (statuses as of 08/01/2023) Resolved Problems Problem Noted Date Diagnosed Date Resolved Date Acute suppurative otitis media 03/13/2013 04/30/2013 Migraine 11/06/2011 05/31/2015 Major depressive disorder 08/24/2011 Overview: ICD-10 update of inactive term Dyspnea and respiratory abnormality 01/01/2008 12/27/2016 Overview: ICD-10 update of inactive term documented as of this encounter (statuses as of 08/01/2023) Immunizations Name Administration Dates Next Due COVID-19 mRNA, LNP-s, No Pre serve, 2-Dose Series (Moderna) 08/27/2020,07/25/2020 COVID-19, mRNA, LNP-s, PF, B ooster, 100mcg/0.5mg (Moderna) 06/28/2021 Covid-19, Mrna, Lnp-s, Pf, B ivalent, 30 Mcg, IM, 12 yrs and above (Pfizer) 07/27/2022 Hepatitis B, 20+ yrs 10/20/2021,08/23/2021 PPD 03/06/2016 Pneumococcal Conjugate Vacci ne, 20-valent ([id number]) 02/22/2022 Pneumococcal Polysaccharide PPV23 (Pneumovax) 09/12/2011 Seasonal [...] encounter Miscellaneous Notes * Telephone Encounter - Estefania Downey, [facility] - 08/01/2023 8:36 AM ESTRefused Prescriptions: Disp Refills D-Care Glucometer w/Device Kit 1 Kit 0 Sig: Use as directed. Use as directed for home glucose testing once dailyRefused By: ESTEFANIA DOWNEY for Refusal: Managed by another physician Lancets 100 Ea*11 Sig: Use as directed once daily for glucose testing.Refused By: ESTEFANIA DOWNEY for Refusal: Managed by another physician SUMAtriptan Succinate 100 MG Oral Tablet 90 Tab*1 Sig: Take 1 Tablet by mouth daily as needed for Migraine. May take an additional 1 tab in 24 hours if neededRefused By: ESTEFANIA DOWNEY for Refusal: Managed by another physician Electronically signed by Estefania Downey [facility] at 08/01/2023 8:36 AM EST * Telephone Encounter - Estefania Downey RPh - 08/01/2023 8:35 AM EST Per 07/16 pt message, pt transferring records to [facility]. Thank you, Estefania Downey, PharmD Clinical Pharmacist [facility] (formerly [facility]pharm[facility]) [phone] 08/01/2023, 8:35 AM Electronically signed by Estefania Downey [facility] at 08/01/2023 8:36 AM EST documented in this encounter Plan of Treatment Upcoming Encounters Date Type Department Care Team (Latest Contact Info) Description 09/17/2023 2:00 PM EDT Office Visit Neurology [facility] [address] [place] [address] Talita Rucker PA-C [address] [place] [address] 11/18/2023 9:20 AM EDT Office Visit Gastroenterology, [facility] [address] [facility] [place] [address] Ale Stover, 12/24/2023 8:00 AM EDT Hospital Encounter ENDO [facility], Endoscopy Room [facility] [address] [place] [phone] Tamara Echeverria MD [address] [place] [address] 12/24/2023 8:00 AM EDT - 12/24/2023 8:30 AM EDT Surgery ENDO [facility], Endoscopy Room [facility] [address] [place] [phone] Tamara Echeverria MD [address] [place] [address] COLONOSCOPY FLEXIBLE PROXIMAL DIAGNOSTIC Scheduled Procedures Name [...] this encounter Medical Devices Implanted Type Area Sawing And Assembly Supervisor Device Identifier Shelf Expiration Date Model / Serial / Lot Sling Barbra One - [id number] Implanted:Qty: 1 on 03/08/2023 by Félix Sandoval MD at OR [facility] N/A: Vagina [employer] 03/08/2024 [id number] / / [id number] documented as of this encounter Visit Diagnoses Diagnosis Type 2 diabetes mellitus with hemoglobin A1c goal of less than 7.0% (HCC) Dyslipidemia, goal LDL below 100 Other and unspecified hyperlipidemia Depressed mood Migraine variant Variants of migraine, not elsewhere classified, without mention of intractable migraine without mention of status migrainosus Gastroesophageal reflux disease Esophageal reflux Family history [...]
--- OUTSIDE RECORDS SUMMARY | 2023-09-04 19:24 | External Medical Summary | Summary of Care ---
Author Name Unknown Organization [facility] Address [address] [facility] [place] [address] Phone [phone] Care Team Providers Care Family Law Paralegal Name Role Phone Warner Hernandez DO Primary Care Provider + [phone] Reason for Visit * Reason Onset Date Comments Other 05/15/2023 Encounter Details Date Type Department Care Team (Late st Contact Info) Description 05/15/2023 Telephone Gastroenterology, [facility] [address] [place] [address] Ale Stover DO [address] [place] [address] Other Allergies Active Allergy Reactions Criticality Noted Date Comments Exenatide Hives 07/29/2013 documented as of this encounter (statuses as of 05/15/2023) Medications Medication Sig Dispensed Refills Start Date [...] morning. 0 Active Vitamin A 4.5 MG (25932 UT) Oral Tablet Take by mouth. 0 [...] as of this encounter (statuses as of 05/15/2023) Active Problems Problem Noted Date Diagnosed Date [...] as of this encounter (statuses as of 05/15/2023) Resolved Problems Problem Noted Date Diagnosed Date Resolved Date Acute suppurative otitis media 03/13/2013 04/30/2013 Migraine 11/06/2011 05/31/2015 Major depressive disorder 08/24/2011 Overview: ICD-10 update of inactive term Dyspnea and respiratory abnormality 01/01/2008 12/27/2016 Overview: ICD-10 update of inactive term documented as of this encounter (statuses as of 05/15/2023) Immunizations Name Administration Dates Next Due COVID-19 mRNA, LNP-s, No Pre serve, 2-Dose Series (Moderna) 08/27/2020,07/25/2020 COVID-19, mRNA, LNP-s, PF, B ooster, 100mcg/0.5mg (Moderna) 06/28/2021 Covid-19, Mrna, Lnp-s, Pf, B ivalent, 30 Mcg, IM, 12 yrs and above (Pfizer) 07/27/2022 Hepatitis B, 20+ yrs 10/20/2021,08/23/2021 PPD 03/06/2016 Pneumococcal Conjugate Vacci ne, 20-valent ([id number]) 02/22/2022 Pneumococcal Polysaccharide PPV23 (Pneumovax) 09/12/2011 SEASONAL [...] encounter Miscellaneous Notes * Telephone Encounter - Ileana Craig RN - 05/15/2023 11:[address] Stover reviewed and signed FMLA per pt request. Called and informed pt. She wanted to worm picker and fax herself. Given to patient. Copy made and sent to scanning. documented in this encounter Plan of Treatment Upcoming Encounters Date Type Department Care Team (Latest Contact Info) Description 08/22/2023 8:00 AM EST Hospital Encounter ENDO [facility], Endoscopy Room [facility] [address] [place] [address] Ale Stover, DO [address] [place] [address] 08/22/2023 8:00 AM EST - 08/22/2023 8:30 AM EST Surgery ENDO [facility], Endoscopy Room [facility] [address] [place] [phone] Ale Stover, DO [address] [place] [address] COLONOSCOPY FLEXIBLE PROXIMAL DIAGNOSTIC 09/17/2023 2:00 PM EDT Office Visit Neurology [facility] [address] [place] [address] [place] Rucker PA-C [address] [place] [address] 11/18/2023 9:20 AM EDT Office Visit Gastroenterology, [facility] [address] [place] [address] Ale Stover, DO [address] [place] [address] Scheduled Procedures Name Priority Associated Diagnoses Date/Ti [...] this encounter Medical Devices Implanted Type Area Certified Dietary Manager Device Identifier Shelf Expiration Date Model / Serial / Lot Zulema Chan - [id number] Implanted:Qty: 1 on 03/08/2023 by Félix Sandoval MD at OR [facility] N/A: Vagina [employer] 03/08/2024 [id number] / / [id number] documented as of this encounter Advance Directives Latest Code Status on File Code Status Date Activated Date Inactivated Comments Full Code 03/08/2023 9:29 AM 03/08/2023 3:20 PM This or stacey reflects the patients wishes and were consensually agreed upon. Question Answer Comments Discussion of Advance Directives occurred with: Patient Care Teams Family Law Paralegal Relationship Specialty Start Date End Date Warner Hernandez DO PCP - General Family Medicine 11/14/20 documented as of this encounter
--- OUTSIDE RECORDS SUMMARY | 2023-09-04 19:25 | External Medical Summary | Summary of Care ---
Author Name Unknown Organization [facility] Address [address] [facility] [place] [address] Phone [phone] Care Team Providers Care Retention Manager Name Role Phone Warner Hernandez DO Primary Care Provider [phone] Reason for Visit * Reason Onset Date Comments Appointment 03/29/2023 Encounter Details Date Type Department Care Team Description 03/29/[address] [facility] [place] [address] [place] [address] Magdalena Fry CRNP [address] [place] [address] Appointment Allergies Active Allergy Reactions Severity Noted Date Comments Exenatide Hives 07/29/2013 documented as of this encounter (statuses as of 03/29/2023) Medications Medication Sig Dispensed Refills Start Date [...] morning. 0 Active Vitamin A 4.5 MG (39906 UT) Oral Tablet Take by mouth. 0 [...] Additional Information Patient not taking.Reported on 03/29/2023 documented as of this encounter (statuses as of 03/29/2023) Active Problems Problem Noted Date Hematoma of [...] as of this encounter (statuses as of 03/29/2023) Resolved Problems Problem Noted Date Resolved Date Acute suppurative otitis media 03/13/2013 1 Migraine 11/06/2011 05/31/2015 Major depressive disorder 08/24/20112014 Overview: ICD-10 update of inactive term Dyspnea and respiratory abnormality 01/01/2008 12/27/2016 Overview: ICD-10 update of inactive term documented as of this encounter (statuses as of 03/29/2023) Immunizations Name Administration Dates Next Due COVID-19 mRNA, LNP-s, No Pre serve, 2-Dose Series (Moderna) 08/27/2020,07/25/2020 COVID-19, mRNA, LNP-s, PF, B ooster, 100mcg/0.5mg (Moderna) 06/28/2021 Covid-19, Mrna, Lnp-s, Pf, B ivalent, 30 Mcg, IM, 12 yrs and above (Pfizer) 07/27/2022 Hepatitis B, 20+ yrs 10/20/2021,08/23/2021 PPD 03/06/2016 Pneumococcal Conjugate Vacci ne, 20-valent ([id number]) 02/22/2022 Pneumococcal Polysaccharide PPV23 (Pneumovax) 09/12/2011 Seasonal Influenza Virus Vac cine, Unspecified Formulation 04/10/2020 Seasonal Influenza, PF, 6 mo ns & Above, IM , (Flulaval) 03/01/2023,03/10/2021 Seasonal Influenza, Quadriva lent, No Preserve, [...] encounter Miscellaneous Notes * Telephone Encounter - SAURABH Snider - 03/29/2023 9:41 AM EDT Patient scheduled with Dr. Hopkins on 04/04/23. * Telephone Encounter - JAMES Talley - 03/29/2023 9:17 AM EDT Patient was seen in our office today for L breast hematoma. Referral placed, can you please call patient and set-up appointment. Spoke to Sabrina over the phone today and was unable to get patient seen in office today. documented in this encounter Plan of Treatment Upcoming Encounters Date Type Specialty Care Team Description 04/02/2023 Office Visit Gynecology Urology Félix Sandoval MD [address] [place] [address] 04/04/2023 Office Visit General Surgery Ambrocio Hopkins MD [address] [place] [address] 05/14/2023 Office Visit Gastroenterology Ale Stover DO [address] [place] [address] 09/17/2023 Office Visit Neurology Talita Rucker PA-C [address] [facility] [address] Scheduled Procedures Name Priority Associated Diagnoses Date/Ti me COLONOSCOPY FLEXIBLE PROXIMA L DIAGNOSTIC Recall Family history of colonic polyps Health Maintenance Due Date Last Done Comments Hepatitis B (3 of 3 - 19+ 3-dose series) 02/20/2022 10/20/2021, 08/23/2021 Depression Screening 02/22/2023 02/22/2022 Diabetic Foot Exam 02/22/2023 02/22/2022, 0 02/17/2021, 12/05/2018, Additional history exists COLONOSCOPY-EVERY 5 YRS AGES [...] (6 to 64 Years) Completed 02/22/2022, 09/12/2011 COVID-19 Vaccine Completed 07/27/2022, , 08/27/2020, Additional history exists Influenza Vaccine (FLU shot) Completed 07/2022, 03/10/2021, 04/10/2020, Additional history exists GARDASIL-HPV IMMUNIZATION SERIES Aged Out No longer eligible based on patient's age to complete this topic MENINGOCOCCAL (MENACTRA/MENVEO) Aged Out No longer eligible based on patient's age to complete this topic documented as of this encounter Medical Devices Implanted Type Area Financial Aid Officer Device Identifier Shelf Expiration Date Model / Serial / Lot Sling Barbra Chan - [id number] Implanted:Qty: 1 on 03/08/2023 by Félix Sandoval MD at OR [facility] N/A: Vagina [employer] 03/08/2024 [id number] / / [id number] documented as of this encounter Advance Directives Latest Code Status on File Code Status Date Activated Date Inactivated Comments Full Code 03/08/2023 9:29 AM 03/08/2023 3:20 PM This or stacey reflects the patients wishes and were consensually agreed upon. Question Answer Comments Discussion of Advance Directives occurred with: Patient Care Teams Retention Manager Relationship Specialty Start Date End Date Warner Hernandez DO [address] [place] [address] PCP - General Family Medicine 11/14/20 documented as of this encounter
--- OUTSIDE RECORDS SUMMARY | 2023-09-04 19:25 | External Medical Summary ---
Author Name Unknown Address Unknown Organization [facility] [place] [address] Laboratory Report Ordering Provider Test Date Status RADHA CAST 03/29/2023 09:26:49 Final Observation Date Value Abnormality Reference (Units ) Status WBC, Total 03/29/2023 09:26:49 8.72 4.00-10.8 0 (K/uL) Final RBC 03/29/2023 09:26:49 3.98 3.85-5.15 (M/uL) Final Hemoglobin 03/29/2023 09:26:49 11.4 Below low normal 12 .0-15.3 (g/dL) Final HCT 03/29/2023 09:26:49 34.8 Below low normal 36. 0-45.2 (%) Final MCV 03/29/2023 09:26:49 87.4 81.5-97.5 (fL) Final MCH 03/29/2023 09:26:49 28.6 27.0-34.0 (pg) Final MCHC 03/29/2023 09:26:49 32.8 32.0-36.0 (g/dL) Final RDW 03/29/2023 09:26:49 13.2 11.5-15.5 (%) Final Platelets 03/29/2023 09:26:49 315 140-400 (K /uL) Final MPV 03/29/2023 09:26:49 11.5 6.6-11.1 ( fL) Final Performing Location [facility] [address] - [address] [place] [address]
--- OUTSIDE RECORDS SUMMARY | 2023-09-04 19:25 | External Medical Summary ---
Author Name Unknown Address Unknown Organization [facility] - [address] [place] [address] Laboratory Report Ordering Provider Test Date Status RADHA CAST 03/29/2023 09:26:49 Final Observation Date Value Abnormality Reference (Units ) Status SYNC LEUKOCYTES IN BLOOD BY AUTOMATED COUNT 03/29/2023 09:26:49 8.72 4.00-10.80 (K/uL) Final Segs 03/29/2023 09:26:49 64.3 40.0-75.0 (%) Final Lymphs % 03/29/2023 09:26:49 24.8 18.0-42.0 (%) Final Monos 03/29/2023 09:26:49 8.6 1.0-11.0 (%) Final Eosinophils 03/29/2023 09:26:49 2.1 0.0-6.0 (%) Final Basos 03/29/2023 09:26:49 0.2 0.0-2.0 (%) Final Absolute Segs 03/29/2023 09:26:49 5.61 1.80-7.70 (K/uL) Final Lymphs, absolute 03/29/2023 09:26:49 2.16 1.00-4.80 (K/ul) Final Monos, Abs 03/29/2023 09:26:49 0.75 0.00-1.10 (K/uL) Final Eos, Abs 03/29/2023 09:26:49 0.18 0.00-0.70 (K/uL) Final Basos, Abs 03/29/2023 09:26:49 0.02 0.00-0.20 (K/uL) Final Performing Location [facility] - [address] [place] [address]
--- OUTSIDE RECORDS SUMMARY | 2023-09-04 19:25 | External Medical Summary | Summary of Care ---
Author Name Unknown Organization [facility] Address [address] [facility] [place] [address] Phone [phone] Care Team Providers Care Materials Scientist Name Role Phone Warner Hernandez DO Primary Care Provider Encounter Details Date Type Department Care Team Description 03/23/2023 Telephone Family Practice [facility] [address] [place] [address] Warner Hernandez DO [address] [place] [address] Allergies Active Allergy Reactions Severity Noted Date Comments Exenatide Hives 07/29/2013 documented as of this encounter (statuses as of 03/25/2023) Medications Medication Sig Dispensed Refills Start Date [...] morning. 0 Active Vitamin A 4.5 MG (00385 UT) Oral Tablet Take by mouth. 0 [...] there after 1 mL 0 03/14/2023 Active Galcanezumab-gnlm 120 MG/ML Subcutaneous Solution Auto-injector (Emgality) 1 injection every month after the first loading dose 1 mL 0 03/14/2023 Active documented as of this encounter (statuses as of 03/25/2023) Active Problems Problem Noted Date Recurrent major depressive disorder 08/29 Type 2 [...] as of this encounter (statuses as of 03/25/2023) Resolved Problems Problem Noted Date Resolved Date Acute suppurative otitis media 03/13/2013 1 Migraine 11/06/2011 05/31/2015 Major depressive disorder 08/24/20112014 Overview: ICD-10 update of inactive term Dyspnea and respiratory abnormality 01/01/2008 12/27/2016 Overview: ICD-10 update of inactive term documented as of this encounter (statuses as of 03/25/2023) Immunizations Name Administration Dates Next Due COVID-19 mRNA, LNP-s, No Pre serve, 2-Dose Series (Moderna) 08/27/2020,07/25/2020 COVID-19, mRNA, LNP-s, PF, B ooster, 100mcg/0.5mg (Moderna) 06/28/2021 Covid-19, Mrna, Lnp-s, Pf, B ivalent, 30 Mcg, IM, 12 yrs and above (Pfizer) 07/27/2022 Hepatitis B, 20+ yrs 10/20/2021,08/23/2021 PPD 03/06/2016 Pneumococcal Conjugate Vacci ne, 20-valent ([id number]) 02/22/2022 Pneumococcal Polysaccharide PPV23 (Pneumovax) 09/12/2011 Seasonal [...] encounter Miscellaneous Notes * Telephone Encounter - Leila Hart LPN - 03/25/2023 8:30 AM EDT Called pt and left a detailed vm message on identified machine. * Telephone Encounter - Warner Hernandez DO - 03/23/2023 3:35 PM EDT Lab studies showed abnormal urinalysis with microscopic hematuria. Advise repeat urinalysis and urine culture after finish antibiotic therapy. Advise increase fluid intake documented in this encounter Plan of Treatment Upcoming Encounters Date Type Specialty Care Team Description 04/02/2023 Office Visit Gynecology Urology Félix Sandoval MD [address] [facility] [place] [address] 05/14/2023 Office Visit Gastroenterology Ale Stover, DO [address] [place] [address] 09/17/2023 Office Visit Neurology Talita Rucker PA-C [address] [facility] [place] [address] Scheduled Orders Name Type Priority Associated Diagnoses Orde r Schedule URINALYSIS, REFLEX TO CULTURE (NOT FOR NEUTROPENIC PATIENTS) Lab Routine Microscopic hematuria Expected: 03/23/2023, Expires: 03/23/2024 Scheduled Procedures Name Priority Associated Diagnoses Date/Ti [...] this encounter Medical Devices Implanted Type Area Inventory And Pricing Associate Device Identifier Shelf Expiration Date Model / Serial / Lot Sling Barbra One - [id number] Implanted:Qty: 1 on 03/08/2023 by Félix Sandoval MD at OR [facility] N/A: Vagina [employer] 03/08/2024 [id number] / / [id number] documented as of this encounter Visit Diagnoses Diagnosis Microscopic hematuria- Primary documented in this encounter Advance Directives Latest Code Status on File Code Status Date Activated Date Inactivated Comments Full Code 03/08/2023 9:29 AM 03/08/2023 3:20 PM This or stacey reflects the patients wishes and were consensually agreed upon. Question Answer Comments Discussion of Advance Directives occurred with: Patient Care Teams Materials Scientist Relationship Specialty Start Date End Date Warnre Hernandez DO [address] [place] [address] PCP - General Family Medicine 11/14/20 documented as of this encounter
--- OUTSIDE RECORDS SUMMARY | 2023-09-04 19:25 | External Medical Summary | Summary of Care ---
Author Name Unknown Organization [facility] Address [address] [facility] [place] [address] Phone [phone] Care Team Providers Care Bleach Boiler Puller Name Role Phone Warner Hernandez DO Primary Care Provider [phone] Reason for Visit * Reason Onset Date Comments Precert Approved 03/27/2023 EMGALITY Encounter Details Date Type Department Care Team Description 03/27/2023 Telephone Neurology [facility] [address] [place] [address] Talita Rucker PA-C [address] [place] [address] Precert Approved ( EMGALITY) Allergies Active Allergy Reactions Severity Noted Date Comments Exenatide Hives 07/29/2013 documented as of this encounter (statuses as of 04/01/2023) Medications Medication Sig Dispensed Refills Start Date [...] morning. 0 Active Vitamin A 4.5 MG (28734 UT) Oral Tablet Take by mouth. 0 [...] as of this encounter (statuses as of 04/01/2023) Active Problems Problem Noted Date Hematoma of [...] as of this encounter (statuses as of 04/01/2023) Resolved Problems Problem Noted Date Resolved Date Acute suppurative otitis media 03/13/2013 1 Migraine 11/06/2011 05/31/2015 Major depressive disorder 08/24/20112014 Overview: ICD-10 update of inactive term Dyspnea and respiratory abnormality 01/01/2008 12/27/2016 Overview: ICD-10 update of inactive term documented as of this encounter (statuses as of 04/01/2023) Immunizations Name Administration Dates Next Due COVID-19 mRNA, LNP-s, No Pre serve, 2-Dose Series (Moderna) 08/27/2020,07/25/2020 COVID-19, mRNA, LNP-s, PF, B ooster, 100mcg/0.5mg (Moderna) 06/28/2021 Covid-19, Mrna, Lnp-s, Pf, B ivalent, 30 Mcg, IM, 12 yrs and above (Pfizer) 07/27/2022 Hepatitis B, 20+ yrs 10/20/2021,08/23/2021 PPD 03/06/2016 Pneumococcal Conjugate Vacci ne, 20-valent ([id number]) 02/22/2022 Pneumococcal Polysaccharide PPV23 (Pneumovax) 09/12/2011 SEASONAL [...] encounter Miscellaneous Notes * Telephone Encounter - JAMES Pablo - 03/27/2023 8:08 AM EDT Neurology Pre-Cert Request Medication/Disease State Information: Medication: Galcanezumab (Emgality) - 120mg/ml Pen - Initiation - 240mg once then, 120mg once a month Diagnosis (including ICD-10): Migraine - Chronic Migraine G43.709 - Self- administered - route pre-cert request to [id number] See corresponding visit note(s) for additional supporting clinical information. Office Information: Prescriber: Talita Rucker PA-C documented in this encounter Plan of Treatment Upcoming Encounters Date Type Specialty Care Team Description 04/02/2023 Office Visit Gynecology Urology Félix Sandoval MD [address] [place] [address] 04/04/2023 Office Visit General Surgery Ambrocio Hopkins MD [address] [place] [address] 05/14/2023 Office Visit Gastroenterology Ale Stover DO [address] [place] [address] 09/17/2023 Office Visit [facility]rology [facility]C [facility] [address] Scheduled Procedures Name Priority Associated Diagnoses Date/Ti [...] this encounter Medical Devices Implanted Type Area Commissioner Public Works Device Identifier Shelf Expiration Date Model / Serial / Lot Sling Barbra Chan - [id number] Implanted:Qty: 1 on 03/08/2023 by Félix Sandoval MD at OR [facility] N/A: Vagina [employer] 03/08/2024 [id number] / / [id number] documented as of this encounter Advance Directives Latest Code Status on File Code Status Date Activated Date Inactivated Comments Full Code 03/08/2023 9:29 AM 03/08/2023 3:20 PM This or stacey reflects the patients wishes and were consensually agreed upon. Question Answer Comments Discussion of Advance Directives occurred with: Patient Care Teams Bleach Boiler Puller Relationship Specialty Start Date End Date Warner Hernandez DO [address] [place] [address] PCP - General Family Medicine 11/14/20 documented as of this encounter
--- OUTSIDE RECORDS SUMMARY | 2023-09-04 19:25 | External Medical Summary | Summary of Care ---
Author Name Unknown Organization [facility] Address [address] [facility] [place] [address] Phone [phone] Care Team Providers Care Control Systems Designer Name Role Phone Warner Hernandez DO Primary Care Provider Reason for Referral * Evaluate & Treat - Unlimited Visits (Within 3 days (urgent)) - Pending Review Specialty Diagnoses / Procedures Referred By Chance slaughter Referred To Contact General Surgery Diagnoses Hematoma of breast Magdalena Fry CRNP [address] [place] [address] Referral ID Status Reason Start Date Expiration Date Visits Requested Visits Authorized [id number] Pending Review Specialty Services Required 03/29/[phone] Question Answer Referral Priority Within 3 days (urgent) What condition is the patient being seen for? Breast Conditions Comments Large breast hematoma s/p biopsy Reason for Visit * Reason Comments Acute Patient presents in office today recently had a breast biopsy on L breast -- noticed in the shower a couple days ago a golf-sized lump. Encounter Details Date Type Department Care Team Description 03/29/2023 Office Visit Family Practice [facility] [address] [place] [address] Magdalena Fry CRNP [address] [place] [address] Hematoma of breast* Allergies Active Allergy Reactions Severity Noted Date [...] morning. 0 Active Vitamin A 4.5 MG (50461 UT) Oral Tablet Take by mouth. 0 [...] hyperglycemia, without long-term current use of insulin ([facility]) INJECT 0.75 ML UNDER THE [...] PPD 03/06/2016 Pneumococcal Conjugate Vacci ne, 20-valent ([id number]) 02/22/2022 Pneumococcal Polysaccharide PPV23 (Pneumovax) 09/12/2011 Seasonal [...] Sign Reading Time Taken Comments Blood Pressure 130/82 03/29/2023 8:49 AM EDT Pulse 76 03/29/2023 8:49 AM EDT Temperature 36.4 C (97.6 F) 03/29/2023 8:49 AM ED T Respiratory Rate 18 03/29/2023 8:49 AM EDT Oxygen Saturation 99% 03/29/2023 8:49 AM EDT Inhaled Oxygen Concentration - - Weight 73.3 kg (161 lb 8 oz) 03/29/2023 8:49 AM EDT Height 162 cm (5' 3.78") 03/29/2023 8:49 AM EDT Body Mass Index 27.91 03/29/2023 8:49 AM EDT documented in this encounter Progress Notes * SLOANE Doan - 03/29/2023 9:00 AM EDT Images from the original note were not included. Acute Family Medicine Visit CC: Chief Complaint Patient presents with Acute Patient presents in office today recently had a breast biopsy on L breast -- noticed in the shower a couple days ago a golf-sized lump. History of Present Illness: Zhanna Mcqueen is a 62 year old female presenting today with complaints of golf ball sized lump ofleft breast s/p biopsy. She noticed this lump 2 days ago. She has not taken asa since then. There is not pain. Feels hard. Denies fever or chills. The biopsy was on 03/13/2023. 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 Employer: [employer] [address] Tobacco Use Smoking status: Never Smokeless tobacco: [...] on file Housing Stability: Not on file PMH: Past Medical History: Diagnosis Date Diabetes mellitus (HCC) Hypertension Jugular vein thrombosis Migraines Past Surgical History: Procedure Laterality Date CARPAL TUNNEL SURGERY Carpal Tunnel repair COLONOSCOPY, DIAGNOSTIC (RECTUM) 04/24/2018 normal, repeat 5 yrs/[facility] CYSTOSCOPY N/A 03/08/2023 CYSTOURETHROSCOPY performed by Félix Sandoval MD at OR [facility] INFORMATION mandibular and jaw surgery LAP;W/HYSTERECTOMY Hysterectomy Complete LIGATE/CUT OVIDUCT(S) MAMMOGRAM BREAST NEEDLE BIOPSY CORE LEFT Left 03/13/2023 REMOVAL OF APPENDIX REMOVAL OF TONSILS, AGE 12+ REMOVE GALLBLADDER REMOVE NECK SPINE LAMINA, 1-2 SEGS Cervical Laminectomy? C5-c7 REPAIR BLADDER DEFECT N/A 03/08/2023 VAGINAL SLING PROCEDURE FOR STRESS INCONTINENCE performed by Félix Sandoval MD at OR [facility] TEAR DUCT SYSTEM SURGERY NEC TOTAL ABD HYSTERECTOMY W/WO REMOVAL OF TUBE(S) Outpatient Medications Marked as Taking for the 03/29/23 encounter (Office Visit) with SLOANE Doan Medication Sig Ibuprofen 800 MG Oral Tablet (Motrin) Take 0.75 Tablets by mouth every 8 hours as needed (post op pain). With food. Lisinopril 20 MG Oral Tablet (Prinivil) Take 1 Tablet by mouth in the morning. (Patient taking differently: Take 1 Tablet by mouth in the morning. Takes in the evening .) Ozempic (2 MG/DOSE) 8 MG/3ML Subcutaneous Solution Pen-injector (Semaglutide (2 MG/DOSE)) INJECT 0.75 ML UNDER THE SKIN ONCE WEEKLY Omeprazole 20 MG Oral Capsule Delayed Release (PriLOSEC) TAKE 1 CAPSULE IN THE MORNING AND BEFORE BEDTIME Nortriptyline HCl 10 MG Oral Capsule (Pamelor) Take 2 Capsules by mouth at bedtime. [employer] G6 Transmitter Use as directed. Use 1 transmitter every 90 days Atorvastatin Calcium 80 MG Oral Tablet (Lipitor) Take 1 Tablet by mouth in the morning. (Patient taking differently: Take 1 Tablet by mouth in the morning. Takes in the evening .) buPROPion HCl ER (SR) 150 MG Oral Tablet Extended Release 12 Hour (Wellbutrin SR) Take 1 Tablet by mouth in the morning and 1 Tablet before bedtime. Glimepiride 4 MG Oral Tablet (Amaryl) Take 1 Tablet by mouth in the morning and 1 Tablet before bedtime. SUMAtriptan Succinate 100 MG Oral Tablet Take 1 Tablet by mouth daily as needed for Migraine. May take an additional 1 tab in 24 hours if needed Accu-Chek Arlen Plus In Vitro Strip (Glucose Blood) Use once daily for glucose testing. D-Care Glucometer w/Device Kit Use as directed. Use as directed for home glucose testing once daily Lancets Use as directed once daily for glucose testing. Accu-Chek FastClix Lancet Kit Use to check blood glucose once daily Dx E11.9 Ezetimibe 10 MG Oral Tablet (Zetia) Take by mouth 1 Tablet in the morning. (Patient taking differently: Take 1 Tablet by mouth in the morning. Takes in the evening .) Magnesium Oxide 400 MG Oral Capsule Take by mouth 1 Capsule in the morning. Riboflavin 400 MG Oral Tablet Take by mouth 1 Tablet in the morning. Vitamin A 4.5 MG (58996 UT) Oral Tablet Take by mouth. Vitamin D-3 25 MCG (1000 UT) Oral Capsule Take 1 Capsule by mouth in the morning. Insulin Pen Needle (BD PEN NEEDLE SHORT U/F) 31G X 8 MM Use up to four times a day and as needed. ONETOUCH DELICA LANCING DEV MISC Use as directed up to 4 times daily ASPIRIN 81 MG PO CHEW One pill by mouth once a day with food Review of patient's allergies indicates: Allergen Reactions Bydureon [Exenatide] Hives Most Recent Immunizations Administered Date(s) Administered COVID-19 mRNA, LNP-s, No Preserve, 2-Dose Series (Moderna) 08/27/2020 COVID-19, mRNA, LNP-s, PF, Booster, 100mcg/0.5mg (Moderna) 06/28/2021 Covid-19, Mrna, Lnp-s, Pf, Bivalent, 30 Mcg, IM, 12 yrs and above (Pfizer) 07/27/2022 Hepatitis B, 20+ yrs 10/20/2021 PPD 03/06/2016 Pneumococcal Conjugate Vaccine, 20-valent ([id number]) 02/22/2022 Pneumococcal Polysaccharide PPV23 (Pneumovax) 09/12/2011 Seasonal Influenza Virus Vaccine, Unspecified Formulation 04/10/2020 Seasonal Influenza, PF, 6 mons & Above, IM , (Flulaval) 03/01/2023 Seasonal Influenza, Quadrivalent, No Preserve, IM 04/06/2019 Seasonal Influenza, Recombinant, RIV4, PF, (Flublock) 04/10/2020 Seasonal Influenza, Split, IIV3, With Preserve, Inj 04/27/2016 TDAP (age 10 and older)(Boostrix) 11/17/2020 TDAP (age 11 and older)(Adacel) 11/29/2009 Zoster Vaccine Recombinant (Shingrix) 02/17/2021 Review of Systems: Review of Systems Genitourinary: LEFT BREAST SWELLING AND BRUISING Physical Exam: BP 130/82 | Pulse 76 | Temp 36.4 C (97.6 F) | Resp 18 | Ht 1.62 m (5' 3.78") | Wt 73.3 kg (161 lb 8 oz) | SpO2 99% | BMI 27.91 kg/m | BSA 1.82 m Physical Exam HENT: Head: Normocephalic. Cardiovascular: Rate and Rhythm: Normal rate and regular rhythm. Pulmonary: Effort: Pulmonary effort is normal. Breath sounds: Normal breath sounds. Chest: Chest wall: Mass present. Breasts: Right: Skin change present. Left: Swelling, skin change and tenderness present. Comments: SOFT MASS OF LEFT BREAST WITH BRUISING S/P BIOPSY NO ERYTHEMA MILD TENDERNESS Neurological: General: No focal deficit present. Mental Status: She is alert and oriented to person, place, and time. Psychiatric: Mood and Affect: Mood normal. Behavior: Behavior normal. Thought Content: Thought content normal. Judgment: Judgment normal. Assessment and Plan: 1. Hematoma of breast S/P BIOPSY AVOID ALL ASA PRODUCTS WARM COMPRESSES CHECK CBC URGENT BREAST SURGEON EVAL - CBC WITH WBC DIFFERENTIAL; Future - SURGERY REFERRAL OP I have advised the patient to call our office incase of any worsening or new symptoms. I spent a total of 20-29 minutes (exact time 25 mins) on the date of service in preparation, delivery, and documentation of the care provided to Zhanna Mcqueen excluding any time spent in the performance of separately billed services. JACE Trevino, SLOANE [facility] documented in this encounter Nursing Notes * JAMES Talley - 03/29/2023 8:48 AM EDT The patient has been properly identified by confirmation of name and date of . Chief Complaint Patient presents with Acute Patient presents in office today recently had a breast biopsy on L breast -- noticed in the shower a couple days ago a golf-sized lump. documented in this encounter Plan of Treatment Upcoming Encounters Date Type Specialty Care Team Description 04/02/2023 Office Visit Gynecology Urology Félix Sandoval MD [address] [place] [address] 04/04/2023 Office Visit General Surgery Ambrocio Hopkins MD [address] [place] [address] 05/14/2023 Office Visit Gastroenterology Ale Stover DO [address] [place] [address] 09/17/2023 Office Visit Neurology Talita Rucker PA-C [address] [facility], [place] [address] Scheduled Procedures Name Priority Associated Diagnoses Date/Ti me COLONOSCOPY FLEXIBLE PROXIMA L DIAGNOSTIC Recall Family history of colonic polyps Scheduled Referrals Name Type Priority Associated Diagnoses [...] this encounter Medical Devices Implanted Type Area Cartography Professor Device Identifier Shelf Expiration Date Model / Serial / Lot Sling Barbra One - [id number] Implanted:Qty: 1 on 03/08/2023 by Félix Sandoval MD at OR [facility] N/A: Vagina [employer] 03/08/2024 [id number] / / [id number] documented as of this encounter Visit Diagnoses Diagnosis Hematoma of breast- Primary Other specified disorders of breast documented in this encounter Advance Directives Latest Code Status on File Code Status Date Activated Date Inactivated Comments Full Code 03/08/2023 9:29 AM 03/08/2023 3:20 PM This or stacey reflects the patients wishes and were consensually agreed upon. Question Answer Comments Discussion of Advance Directives occurred with: Patient Care Teams Control Systems Designer Relationship Specialty Start Date End Date Warner Hernandez DO [address] [place] [address] PCP - General Family Medicine 11/14/20 documented as of this encounter
--- OUTSIDE RECORDS SUMMARY | 2023-09-04 19:25 | External Medical Summary | Summary of Care ---
Author Name Unknown Organization [facility] Address [address] [facility] [place] [address] Phone [phone] Care Team Providers Care Upper Cutter Machine Name Role Phone Warner Hernandez DO Primary Care Provider Reason for Visit * Reason Onset Date Comments Medication Pre-auth 03/27/2023 Encounter Details Date Type Department Care Team Description 03/27/2023 Telephone Neurology [facility] [address] [place] [address] Talita Rucker PA-C [address] [facility] [place] [id number] Medication Pre-auth Allergies Active Allergy Reactions Severity Noted Date Comments Exenatide Hives 07/29/2013 documented as of this encounter (statuses as of 03/27/2023) Medications Medication Sig Dispensed Refills Start Date [...] morning. 0 Active Vitamin A 4.5 MG (24387 UT) Oral Tablet Take by mouth. 0 [...] as of this encounter (statuses as of 03/27/2023) Active Problems Problem Noted Date Recurrent major [...] as of this encounter (statuses as of 03/27/2023) Resolved Problems Problem Noted Date Resolved Date Acute suppurative otitis media 03/13/2013 1 Migraine 11/06/2011 05/31/2015 Major depressive disorder 08/24/20112014 Overview: ICD-10 update of inactive term Dyspnea and respiratory abnormality 01/01/2008 12/27/2016 Overview: ICD-10 update of inactive term documented as of this encounter (statuses as of 03/27/2023) Immunizations Name Administration Dates Next Due COVID-19 mRNA, LNP-s, No Pre serve, 2-Dose Series (Moderna) 08/27/2020,07/25/2020 COVID-19, mRNA, LNP-s, PF, B ooster, 100mcg/0.5mg (Moderna) 06/28/2021 Covid-19, Mrna, Lnp-s, Pf, B ivalent, 30 Mcg, IM, 12 yrs and above (NearVerse) 07/27/2022 Hepatitis B, 20+ yrs 10/20/2021,08/23/2021 PPD 03/06/2016 Pneumococcal Conjugate Vacci ne, 20-valent ([id number]) 02/22/2022 Pneumococcal Polysaccharide PPV23 (Pneumovax) 09/12/2011 Seasonal [...] Self- administered - route pre-cert request to [id number] See corresponding visit note(s) for additional supporting clinical information. Office Information: Prescriber: Talita Rucker PA-C documented in this encounter Plan of Treatment Upcoming Encounters Date Type Specialty Care Team Description 04/02/2023 Office Visit Gynecology Urology Félix Sandoval MD [address] [place] [address] 05/14/2023 Office Visit Gastroenterology Ale Stover, DO [address] [place] [address] 09/17/2023 Office Visit Neurology Talita Rucker PA-C [address] [facility] [place] [address] Scheduled Procedures Name Priority Associated Diagnoses Date/Ti [...] 10/20/2018, Additional history exists HbA1c 09/04/2023 03/06/2023, 03/07/2022, 02/28/2022, Additional history exists Mammogram 02/23/2024 02/22/2023, [...] Medical Devices Implanted Type Area Manager Of Financial Reporting Device Identifier Shelf Expiration Date Model / Serial / Lot Sling Barbra Chan - [id number] Implanted:Qty: 1 on 03/08/2023 by Félix Sandoval MD at OR [facility] N/A: Vagina [employer] 03/08/2024 [id number] / / [id number] documented as of this encounter Advance Directives Latest Code Status on File Code Status Date Activated Date Inactivated Comments Full Code 03/08/2023 9:29 AM 03/08/2023 3:20 PM This or stacey reflects the patients wishes and were consensually agreed upon. Question Answer Comments Discussion of Advance Directives occurred with: Patient Care Teams Upper Cutter Machine Relationship Specialty Start Date End Date Warner Hernandez DO [address] [place] [address] PCP - General Family Medicine 11/14/20 documented as of this encounter
--- OUTSIDE RECORDS SUMMARY | 2023-09-04 19:25 | External Medical Summary | Summary of Care ---
Author Name Unknown Organization [facility] Address [address] [facility] [place] [address] Phone [phone] Care Team Providers Care Rehabilitation Consultant Name Role Phone MaryWarner Primary Care Provider Reason for Visit * Reason Onset Date Comments Precert In Process 03/27/2023 27 AC HIGHMAR K EMGALITY Encounter Details Date Type Department Care Team Description 03/27/2023 Telephone Neurology [facility] [address] [place] [address] Talita Rucker PA-C [address] [place] [address] Precert In Process (27 AC HIGHMARK EMGALITY) Allergies Active Allergy Reactions Severity Noted [...] morning. 0 Active Vitamin A 4.5 MG (48646 UT) Oral Tablet Take by mouth. 0 [...] 30 Mcg, IM, 12 yrs and above ([facility]) 07/27/2022 Hepatitis B, 20+ yrs 10/20/2021,08/23/2021 PPD 03/06/2016 Pneumococcal Conjugate Vacci ne, 20-valent ([id number]) 02/22/2022 Pneumococcal Polysaccharide PPV23 (Pneumovax) 09/12/2011 Seasonal [...] Self- administered - route pre-cert request to [id number] See corresponding visit note(s) for additional supporting clinical information. Office Information: Prescriber: Talita Rucker PA-C documented in this encounter Plan of Treatment Upcoming Encounters Date Type Specialty Care Team Description 04/02/2023 Office Visit Gynecology Urology Félix Sandoval MD [address] [facility] [place] [address] 05/14/2023 Office Visit Gastroenterology Ale Stover, DO [address] [place] [address] 09/17/2023 Office Visit Neurology Talita Rucker PA-C [address] [place] [address] Scheduled Procedures Name Priority Associated Diagnoses Date/Ti [...] this encounter Medical Devices Implanted Type Area Secretarial Teacher Device Identifier Shelf Expiration Date Model / Serial / Lot Sling Barbra Chan - [id number] Implanted:Qty: 1 on 03/08/2023 by Félix Sandoval MD at OR [facility] N/A: Vagina [employer] 03/08/2024 [id number] / / [id number] documented as of this encounter Advance Directives Latest Code Status on File Code Status Date Activated Date Inactivated Comments Full Code 03/08/2023 9:29 AM 03/08/2023 3:20 PM This or stacey reflects the patients wishes and were consensually agreed upon. Question Answer Comments Discussion of Advance Directives occurred with: Patient Care Teams Rehabilitation Consultant Relationship Specialty Start Date End Date Warner Hernandez DO [address] [place] [address] PCP - General Family Medicine 11/14/20 documented as of this encounter
--- OUTSIDE RECORDS SUMMARY | 2023-09-04 19:25 | External Medical Summary | Summary of Care ---
Author Name Unknown Organization [facility] Address [address] [facility] [place] [address] Phone [phone] Care Team Providers Care Division Supervisor Name Role Phone Warner Hernandez DO Primary Care Provider [phone] Reason for Visit * Reason Comments Outpatient Testing Encounter Details Date Type Department Care Team Description 03/29/2023 Laboratory Laboratory, [facility] [address] [facility] [place] [id number] [facility] [address] [facility] [address] Hematoma of breast; Microscopic hematuria Allergies Active Allergy Reactions Severity Noted Date [...] morning. 0 Active Vitamin A 4.5 MG (50153 UT) Oral Tablet Take by mouth. 0 [...] PPD 03/06/2016 Pneumococcal Conjugate Vacci ne, 20-valent ([id number]) 02/22/2022 Pneumococcal Polysaccharide PPV23 (Pneumovax) 09/12/2011 Seasonal [...] Urology Félix Sandoval MD [address] [place] [address] 04/04/2023 Office Visit General Surgery Ambrocio Hopkins MD [address] [place] [address] 05/14/2023 Office Visit Gastroenterology Ale Stover DO [address] [place] [address] 09/17/2023 Office Visit Neurology Talita Rucker PA-C [address] [place] [address], [place] [address] Pending Results Name Type Priority Associated Diagnoses Date /Time URINALYSIS, REFLEX TO CULTURE (NOT FOR NEUTROPENIC PATIENTS) Lab Routine Microscopic hematuria 03/29/2023 9:28 AM EDT URINALYSIS, REFLEX TO CULTURE (CUP ONLY) Lab Routine Microscopic hematuria 03/29/2023 9:28 AM EDT URINALYSIS, REFLEX TO CULTURE Lab Routine Microscopic hematuria 03/29/2023 9:28 AM EDT Scheduled Procedures Name Priority Associated Diagnoses Date/Ti [...] this encounter Medical Devices Implanted Type Area Member Of Technical Staff Device Identifier Shelf Expiration Date Model / Serial / Lot Zulema Chan - [id number] Implanted:Qty: 1 on 03/08/2023 by Félix Sandoval MD at OR [facility] N/A: Vagina [employer] 03/08/2024 [id number] / / [id number] documented as of this encounter Procedures Procedure Name Priority Date/Time Associated Diagnosis Comments DIFFERENTIAL, AUTOMATED STAT 03/29/2023 9:26 AM EDT Hematoma of breast CBC STAT 03/29/2023 9:26 AM EDT Hematoma of breast CBC STAT 03/29/2023 9:26 AM EDT Hematoma of breast documented in this encounter Results * DIFFERENTIAL, AUTOMATED (03/29/2023 9:26 AM EDT) WBC 8.72 4.00 - 10.80 K/uL 03/29/2023 9:33 AM EDT [facility] Neutrophils % 64.3 40.0 - 75.0 % 03/29/2023 9:33 AM EDT [facility] Lymphocytes % 24.8 18.0 - 42.0 % 03/29/2023 9:33 AM EDT [facility] Monocytes % 8.6 1.0 - 11.0 % 03/29/2023 9:33 AM EDT [facility] Eosinophils % 2.1 0.0 - 6.0 % 03/29/2023 9:33 AM EDT [facility] Basophils % 0.2 0.0 - 2.0 % 03/29/2023 9:33 AM EDT [facility] Absolute Neutrophils 5.61 1.80 - 7.70 K/uL 03/29/2023 9:33 AM EDT [facility] Absolute Lymphocytes 2.16 1.00 - 4.80 K/ul 03/29/2023 9:33 AM EDT [facility] Absolute Monocytes 0.75 0.00 - 1.10 K/uL 03/29/2023 9:33 AM EDT [facility] Absolute Eosinophils 0.18 0.00 - 0.70 K/uL 03/29/2023 9:33 AM EDT [facility] Absolute Basophils 0.02 0.00 - 0.20 K/uL 03/29/2023 9:33 AM EDT [facility] Blood Venous blood specimen / Unknown Venipuncture / Unknown 03/29/2023 9:26 AM EDT 03/29/2023 9:26 AM EDT Magdalena ANTON LAB BLOOD ORDObie MANUEL [facility] Organization Address City/State/ZIP Co de Phone Number [facility] [phone] [place] [phone] * (ABNORMAL) CBC (03/29/2023 9:26 AM EDT) WBC 8.72 4.00 - 10.80 K/uL 03/29/2023 9:33 AM EDT [facility] RBC 3.98 3.85 - 5.15 M/uL 03/29/2023 9:33 AM EDT [facility] HGB 11.4(L) 12.0 - 15.3 g/dL 03/29/2023 9:33 AM EDT [facility] HCT 34.8(L) 36.0 - 45.2 % 03/29/2023 9:33 AM EDT [facility] MCV 87.4 81.5 - 97.5 fL 03/29/2023 9:33 AM EDT [facility] MCH 28.6 27.0 - 34.0 pg 03/29/2023 9:33 AM EDT [facility] MCHC 32.8 32.0 - 36.0 g/dL 03/29/2023 9:33 AM EDT [facility] RDW 13.2 11.5 - 15.5 % 03/29/2023 9:33 AM EDT [facility] PLT 315 140 - 400 K/uL 03/29/2023 9:33 AM EDT [facility] MPV 11.5 6.6 - 11.1 fL 03/29/2023 9:33 AM EDT [facility] Blood Venous blood specimen / Unknown Venipuncture / Unknown 03/29/2023 9:26 AM EDT 03/29/2023 9:26 AM EDT Magdalena ANTON [facility] BLOOD [facility]DE [facility] [place] [facility] [place] [address] documented in this encounter Visit Diagnoses Diagnosis Hematoma of breast Other specified disorders of breast Microscopic hematuria documented in this encounter Advance Directives Latest Code Status on File Code Status Date Activated Date Inactivated Comments Full Code 03/08/2023 9:29 AM 03/08/2023 3:20 PM This or stacey reflects the patients wishes and were consensually agreed upon. Question Answer Comments Discussion of Advance Directives occurred with: Patient Care Teams Division Supervisor Relationship Specialty Start Date End Date Warner Hernandez DO [address] [place] [address] PCP - General Family Medicine 11/14/20 documented as of this encounter
--- OUTSIDE RECORDS SUMMARY | 2023-09-04 19:25 | External Medical Summary ---
Author Name Unknown Address Unknown Organization K01:[facility] [place] [address] [facility] [address] Laboratory Report Ordering Provider Test Date Status MARTIN WALKER 03/29/2023 09:28:57 Final Observation Date Value Abnormality Reference (Units ) Status Color of Urine by Auto 03/29/2023 09:28:57 Yellow Colorless, Light Yellow, Yellow, Dark Yellow Final Clarity, Urine 03/29/2023 09:28:57 Clear Clear Final Glucose [Mass/volume] in Urine by Automated test strip 03/29/2023 09:28:57 250 Abnormal Negative (mg/dL) Final Bilirubin.total [Presence] in Urine by Automated test strip 03/29/2023 09:28:57 Negative Negative Final Ketones [Mass/volume] in Urine by Automated test strip 03/29/2023 09:28:57 Negative Negative (mg/dL) Final Specific gravity, Urine 03/29/2023 09:28:57 1.029 1.003-1.030 Final Hemoglobin [Presence] in Urine by Automated test strip 03/29/2023 09:28:57 Negative Negative Final pH, Urine 03/29/2023 09:28:57 5.5 5.0-7.5 (Units) Final Protein [Mass/volume] in Urine by Automated test strip 03/29/2023 09:28:57 30 Abnormal Negative (mg/dL) Final Urobilinogen [Mass/volume] in Urine by Automated test strip 03/29/2023 09:28:57 Normal Normal (mg/dL) Final Nitrite [Presence] in Urine by Automated test strip 03/29/2023 09:28:57 Negative Negative Final Leukocyte esterase [Presence] in Urine by Automated test strip 03/29/2023 09:28:57 Trace Abnormal Negative Final RBC, Urine 03/29/2023 09:28:57 0-2 0-2 (/HPF) Final WBC, Urine 03/29/2023 09:28:57 3-5 Abnormal 0-2 (/HPF) Final Bacteria [#/area] in Urine sediment by Microscopy high power field 03/29/2023 09:28:57 26-50 Abnormal 0-25 (/HPF) Final [facility], [facility] 03/29/2023 09:28:57 Final Quantitative urine culture t o be performed Performing Location [facility] [place] [address] [facility] [address]
--- OUTSIDE RECORDS SUMMARY | 2023-09-04 19:25 | External Medical Summary | Summary of Care ---
Author Name Unknown Organization [facility] Address [address] [facility] [place] [address] Phone [phone] Care Team Providers Care Maintenance Apprentice Name Role Phone Warner Hernandez DO Primary Care Provider Reason for Visit * Reason Onset Date Comments Appointment 03/29/2023 Encounter Details Date Type Department Care Team Description 03/29/2023 Telephone Family Practice [facility] [address] [place] [address] Magdalena Fry CRNP [address] [place] [address] Appointment Allergies Active Allergy Reactions Severity Noted [...] morning. 0 Active Vitamin A 4.5 MG (92271 UT) Oral Tablet Take by mouth. 0 [...] PPD 03/06/2016 Pneumococcal Conjugate Vacci ne, 20-valent ([id number]) 02/22/2022 Pneumococcal Polysaccharide PPV23 (Pneumovax) 09/12/2011 Seasonal [...] Urology Félix Sandoval MD [address] [place] [address] 04/04/2023 Office Visit General Surgery Ambrocio Hopkins MD [address] [place] [address] 05/14/2023 Office Visit Gastroenterology Ale Stover DO [address] [place] [address] 09/17/2023 Office Visit Neurology Talita Rucker PA-C [address] [facility] [address] Scheduled Procedures Name Priority Associated Diagnoses Date/Ti [...] this encounter Medical Devices Implanted Type Area Welfare Service Aide Device Identifier Shelf Expiration Date Model / Serial / Lot Sling Barbra Chan - [id number] Implanted:Qty: 1 on 03/08/2023 by Félix Sandoval MD at OR [facility] N/A: Vagina [employer] 03/08/2024 [id number] / / [id number] documented as of this encounter Advance Directives Latest Code Status on File Code Status Date Activated Date Inactivated Comments Full Code 03/08/2023 9:29 AM 03/08/2023 3:20 PM This or stacey reflects the patients wishes and were consensually agreed upon. Question Answer Comments Discussion of Advance Directives occurred with: Patient Care Teams Maintenance Apprentice Relationship Specialty Start Date End Date Warner Hernandez DO [address] [place] [address] PCP - General Family Medicine 11/14/20 documented as of this encounter
--- OUTSIDE RECORDS SUMMARY | 2023-09-04 19:25 | External Medical Summary ---
Author Name Unknown Address Unknown Organization K01:[facility] [place] [address] [place] [id number] Laboratory Report Ordering Provider Test Date Status MARTIN WALKER 03/29/2023 09:28:57 Final Observation Date Value Abnormality Reference (Units) Status Bacteria identified in Specimen by Culture 03/29/2023 09:28:57 No significant growth Final Test: Culture, Urine, Quanti tative
Specimen Source: Urine, Clean Catch
Specimen Type: Urine
Specimen Date: 03/29/2023 9:28 AM
Result Date: 03/30/2023 11:17 AM
Result Status: Final result
Resulting Lab: [facility] [place]
[address]
[facility] [address]

CULTURE

No significant growth

null Performing Location [facility] [place] [address] [facility] [address]
--- OUTSIDE RECORDS SUMMARY | 2023-09-04 19:25 | External Medical Summary | Summary of Care ---
Author Name Unknown Organization [facility] Address [address] [facility] [place] [address] Phone [phone] Care Team Providers Care Graves Registration Specialist Name Role Phone Warner Hernandez DO Primary Care Provider Reason for Referral * Ancillary Services (Within 10 days (routine)) - Pending Review Specialty Diagnoses / Procedures Referred By Chance slaughter Referred To Contact Gastroenterology Diagnoses Screening for malignant neoplasm of colon Warner Hernandez DO [address] [place] [address] Referral ID Status Reason Start Date Expiration Date Visits Requested Visits Authorized [id number] Pending Review Ancillary Services Required 04/01/2023 1 1 Question Answer Referral Priority Within 10 days (routine) Comments ALERT: Do not order for pediatric patients (18 years or younger). Cancel off screen and order PEDS GASTROENTEROLOGY CONSULT (Type: 1 visit only-Evaluate and Treat) The following Pt. Instructions are available: - Gastro Colonoscopy Prep Instructions [26241] - Gastro Colonoscopy Prep Instructions (Canadian Version) [73953] Go to the Pt. Instructions section within the Visit Navigator to access. Colonoscopy ASGE Guidelines: Average risk screening (begin at age 50, 10 year intervals) ADDITIONAL INFORMATION 1. Is the patient on Coumadin? No 2. Is the patient on Pradaxa? No Reason for Visit * Reason Onset Date Comments Health Maintenance 04/01/2023 Encounter Details Date Type Department Care Team Description 04/01/2023 Telephone Family Practice [facility] [address] [place] [address] Warner Hernandez DO [address] [place] [address] Health Maintenance Allergies Active Allergy Reactions Severity [...] morning. 0 Active Vitamin A 4.5 MG (09069 UT) Oral Tablet Take by mouth. 0 [...] hemoglobin A1c goal of less than 7.0% ([facility]) Use as directed. Use as directed for home glucose testing once daily 1 Kit 0 07/30/2022 Active LancetsIndications: Type 2 diabetes mellitus with hemoglobin A1c goal of less than 7.0% ([facility]) Use as directed once daily [...] hyperglycemia, without long-term current use of insulin ([facility]) INJECT 0.75 ML UNDER THE [...] PPD 03/06/2016 Pneumococcal Conjugate Vacci ne, 20-valent ([id number]) 02/22/2022 Pneumococcal Polysaccharide PPV23 (Pneumovax) 09/12/2011 SEASONAL [...] Miscellaneous Notes * Telephone Encounter - SAURABH Samuels - 04/01/2023 12:48 PM EDT Instructions will be sent closer to time * Telephone Encounter - Awa Fisher LPN - 04/01/2023 12:21 PM EDT Care Gaps Comprehensive Care Outreach [...] Diabetic Foot Exam 02/22/2023 Depression Screening 02/22/2023 COLONOSCOPY-EVERY 5 YRS AGES 18-100 04/24/2023 Colon scheduled Care Gap Outreach Action Taken: Spoke to patient Colonoscopy scheduled aug 22 please reach out with prep instructions documented in this encounter Plan of Treatment Upcoming Encounters Date Type Specialty Care Team Description 04/02/2023 Office Visit Gynecology Urology Félix Sandoval MD [address] [place] [address] 04/04/2023 Office Visit General Surgery Ambrocio Hopkins MD [address] [place] [address] 05/14/2023 Office Visit Gastroenterology Ale Stover, DO [address] [place] [address] 08/22/2023 Hospital Encounter Endoscopy Ale Stover, DO [address] [place] [address] 08/22/2023 Surgery Endoscopy Ale Stover, DO [address] [place] [address] COLONOSCOPY FLEXIBLE PROXIMAL DIAGNOSTIC 09/17/2023 Office Visit Neurology Talita Rucker PA-C [address] [place] [address] Scheduled Procedures Name Priority Associated Diagnoses Date/Ti me COLONOSCOPY FLEXIBLE PROXIMAL DIAGNOSTIC Recall Family history of colonic polyps 08/22/2023 8:00 AM EST Scheduled Referrals Name Type Priority Associated Diagnoses Orde r Schedule COLONOSCOPY, GI REFERRAL OP Referral Within 10 days (routine) Screening for malignant neoplasm of colon Ordered: 04/01/2023 Health Maintenance Due Date Last Done Comments [...] this encounter Medical Devices Implanted Type Area Gambling Broker Device Identifier Shelf Expiration Date Model / Serial / Lot Darioing Barbra Chan - [id number] Implanted:Qty: 1 on 03/08/2023 by Félix Sandoval MD at OR [facility] N/A: Vagina [employer] 03/08/2024 [id number] / / [id number] documented as of this encounter Visit Diagnoses Diagnosis Screening for malignant neoplasm of colon- Primary Family history of colonic polyps documented in this encounter Advance Directives Latest Code Status on File Code Status Date Activated Date Inactivated Comments Full Code 03/08/2023 9:29 AM 03/08/2023 3:20 PM This or stacey reflects the patients wishes and were consensually agreed upon. Question Answer Comments Discussion of Advance Directives occurred with: Patient Care Teams Graves Registration Specialist Relationship Specialty Start Date End Date Warner Hernandez DO [address] [place] [address] PCP - General Family Medicine 11/14/20 documented as of this encounter
--- OUTSIDE RECORDS SUMMARY | 2023-09-04 19:26 | External Medical Summary | Summary of Care ---
Author Name Unknown Organization [facility] Address [address] [facility] [place] [address] Phone [phone] Care Team Providers Care Welfare Eligibility Worker Name Role Phone Warner Hernandez DO Primary Care Provider [phone] Reason for Visit * Reason Comments Return Neuro * Evaluate & Treat - Unlimited Visits (Within 10 days (routine)) - Pending Review Specialty Diagnoses / Procedures Referred By Chance slaughter Referred To Contact Neurology Diagnoses Migraine variant Warner Hernandez DO [address] [place] [address] Referral ID Status Reason Start Date Expiration Date Visits Requested Visits Authorized [id number] Pending Review Specialty Services Required 03/01/[phone] Encounter Details Date Type Department Care Team Description 03/14/2023 Office Visit Neurology [place] [address] [place] [address] Talita Rucker PA-C [address] [place] [address] Migraine variant*; Type 2 diabetes mellitus without complication, without long-term current use of insulin (HCC) Allergies Active Allergy Reactions Severity Noted Date Comments Exenatide Hives 07/29/2013 documented as of this encounter (statuses as of 03/14/2023) Medications Medication Sig Dispensed Refills Start Date End Date Status ASPIRIN 81 MG PO CHEW One pill by mouth once a day with food 100 Tab 5 2 Active ONETOUCH DELICA LANCING DEV MISCIndications:D M type 2, goal A1C below 8.0 Use as directed up to 4 times daily 1 Each 0 5 Active Insulin Pen Needle (BD PEN NEEDLE SHORT U/F) 31G X 8 MM Use up to four times a day and as needed. 180 Each 3 9 Active Vitamin D-3 25 MCG (1000 UT) Oral Capsule Take 1 Capsule by mouth in the morning. 0 Active Vitamin A 4.5 MG (41134 UT) Oral Tablet Take by mouth. 0 Active Magnesium Oxide 400 MG Oral Capsule Take by mouth 1 Capsule in the morning. 90 Capsule 2 2 Active Riboflavin 400 MG Oral Tablet Take by mouth 1 Tablet in the morning. 90 Tablet 2 2 Active Ezetimibe 10 MG Oral Tablet (Zetia)Indication s:Dyslipidemia Take by mouth 1 Tablet in the morning. 90 Tablet 3 2 Active Additional Information Patient taking differently:10 mg Oral Daily(AM), Takes in the evening, Reported on 03/06/2023 Accu-Chek FastClix Lancet Kit Use to check blood glucose once daily Dx E11.9 1 Kit 0 3 Active Accu-Chek Arlen Plus In Vitro Strip (Glucose Blood)Indications :Type 2 diabetes mellitus with hemoglobin A1c goal of less than 7.0% (HCC) Use once daily for glucose testing. 100 Strip 3 3 Active D-Care Glucometer w/Device KitIndications:Ty pe 2 diabetes mellitus with hemoglobin A1c goal of less than 7.0% (HCC) Use as directed. Use as directed for home glucose testing once daily 1 Kit 0 3 Active LancetsIndication s:Type 2 diabetes mellitus with hemoglobin A1c goal of less than 7.0% (HCC) Use as directed once daily for glucose testing. 100 Each 11 3 Active Atorvastatin Calcium 80 MG Oral Tablet (Lipitor)Indicati ons:Dyslipidemia, goal LDL below 100 Take 1 Tablet by mouth in the morning. 90 Tablet 3 3 Active Additional Information Patient taking differently:80 mg Oral Daily(AM), Takes in the evening, Reported on 03/06/2023 buPROPion HCl ER (SR) 150 MG Oral Tablet Extended Release 12 Hour (Wellbutrin SR)Indications:De pressed mood Take 1 Tablet by mouth in the morning and 1 Tablet before bedtime. 180 Tablet 3 3 Active SUMAtriptan Succinate 100 MG Oral TabletIndications :Migraine variant Take 1 Tablet by mouth daily as needed for Migraine. May take an additional 1 tab in 24 hours if needed 90 Tablet 1 3 Active Glimepiride 4 MG Oral Tablet (Amaryl) Take 1 Tablet by mouth in the morning and 1 Tablet before bedtime. 60 Tablet 5 3 Active Dexcom G6 Sensor Use as directed. Use 1 sensor every 10 days 9 Each 3 3 Active Dexcom G6 Transmitter Use as directed. Use 1 transmitter every 90 days 1 Each 3 3 Active Nortriptyline HCl 10 MG Oral Capsule (Pamelor)Indicati ons:Migraine variant Take 2 Capsules by mouth at bedtime. 180 Capsule 2 3 Active Omeprazole 20 MG Oral Capsule Delayed Release (PriLOSEC)Indicat ions:Gastroesopha geal reflux disease TAKE 1 CAPSULE IN THE MORNING AND BEFORE BEDTIME 180 Capsule 3 3 Active Ozempic (2 MG/DOSE) 8 MG/3ML Subcutaneous Solution Pen-injector (Semaglutide (2 MG/DOSE))Indicati ons:Type 2 diabetes mellitus with hyperglycemia, without long-term current use of insulin (HCC) INJECT 0.75 ML UNDER THE SKIN ONCE WEEKLY 9 mL 1 3 Active Lisinopril 20 MG Oral Tablet (Prinivil)Indicat ions:HTN, goal below 130/80 Take 1 Tablet by mouth in the morning. 90 Tablet 3 3 Active Additional Information Patient taking differently:20 mg Oral Daily(AM), Takes in the evening, Reported on 03/06/2023 Ibuprofen 800 MG Oral Tablet (Motrin) Take 0.75 Tablets by mouth every 8 hours as needed (post op pain). With food. 30 Tablet 0 3 Active Nitrofurantoin Monohyd Macro 100 MG Oral Capsule (Macrobid) Take 1 Capsule by mouth in the morning and 1 Capsule before bedtime. Do all this for 7 days. With food. Until gone.. 14 Capsule 0 3 03/18/20 23 Active Galcanezumab-gnlm 120 MG/ML Subcutaneous Solution Auto-injector (Emgality) 2 injections first month and then 1 injection there after 1 mL 0 3 Active Galcanezumab-gnlm 120 MG/ML Subcutaneous Solution Auto-injector (Emgality) 1 injection every month after the first loading dose 1 mL 0 3 Active Galcanezumab-gnlm 120 MG/ML Subcutaneous Solution Auto-injector (Emgality) 2 injections first month and then 1 injection there after 1 mL 0 3 03/14/20 23 Discontinued Galcanezumab-gnlm 120 MG/ML Subcutaneous Solution Auto-injector (Emgality) 1 injection every month after the first loading dose 1 mL 0 3 03/14/20 23 Discontinued Galcanezumab-gnlm 120 MG/ML Subcutaneous Solution Auto-injector (Emgality) 1 injection every month after the first loading dose 1 mL 0 3 03/14/20 23 Discontinued documented as of this encounter (statuses as of 03/14/2023) Active Problems Problem Noted Date Recurrent major [...] as of this encounter (statuses as of 03/14/2023) Resolved Problems Problem Noted Date Resolved Date Acute suppurative otitis media 03/13/2013 1 Migraine 11/06/2011 05/31/2015 Major depressive disorder 08/24/20112014 Overview: ICD-10 update of inactive term Dyspnea and respiratory abnormality 01/01/2008 12/27/2016 Overview: ICD-10 update of inactive term documented as of this encounter (statuses as of 03/14/2023) Immunizations Name Administration Dates Next Due COVID-19 mRNA, LNP-s, No Pre serve, 2-Dose Series (Moderna) 08/27/2020,07/25/2020 COVID-19, mRNA, LNP-s, PF, B ooster, 100mcg/0.5mg (Moderna) 06/28/2021 Covid-19, Mrna, Lnp-s, Pf, B ivalent, 30 Mcg, IM, 12 yrs and above (M/A-COM) 07/27/2022 Hepatitis B, 20+ yrs 10/20/2021,08/23/2021 PPD 03/06/2016 Pneumococcal Conjugate Vacci ne, 20-valent ([id number]) 02/22/2022 Pneumococcal Polysaccharide PPV23 (Pneumovax) 09/12/2011 Seasonal [...] Sign Reading Time Taken Comments Blood Pressure 142/92 03/14/2023 1:22 PM EDT Pulse 76 03/14/2023 1:22 PM EDT Temperature 37 C (98.6 F) 03/14/2023 1:22 PM EDT Respiratory Rate 18 03/14/2023 1:22 PM EDT Oxygen Saturation 96% 03/14/2023 1:22 PM EDT Inhaled Oxygen Concentration - - Weight 71.9 kg (158 lb 9.6 oz) 03/14/2023 1:22 P M EDT Height - - Body Mass Index 27.41 03/08/2023 7:14 AM EDT documented in this encounter Progress Notes * Talita Rucker PA-C - 03/14/2023 1:26 PM EDT HISTORY & PHYSICAL EXAMINATION - NEUROLOGY Name: Zhanna Mcqueen Date: 03/14/2023 Time: 1:26 PM Referring Provider: Warner Hernandez DO Chief Complaint: Chief Complaint Patient presents with Return Neuro This is a 62 year old right handed woman returns today for follow up for migraine. 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 She has had migraine all of her life. At one point she saw Dr Rivera from [facility]. The migraines were daily at that time but were 1-3 x per week when the nortriptyline was started. They are pressure not pounding, no aura. She did add magnesium and is taking nortriptyline 20 mg hs. When she gets the migraine she takes Excedrin migraine but currently she is taking 5-6 per day. 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 She had the covid vaccine and then started having ring in both ears right > left and was assessed for hearing loss which she does have. An MRI was done IAC which showed some white matter changes and a normal variant but nothing to account for her headaches or hearing loss. She is very concerned about her memory because her dad and sister (who is only 18 months older than her) both have dementia dad has passed and her sister has severe dementia according to her report. Denies tobacco abuse, minimal EtOH use, no other drugs caffeine use is minimal about 1 cup coffee per month. She continues on Nortriptyline 20 mg at bedtime and the mg and riboflavin. She is still getting daily headache. She also had the neuropsych testing which attributed the memory issues to anxiety. She has been tried on nortriptyline, gabapentin, topamax, propranolol which she tried and failed. She isrequesting one of the injectables. Denies CP, SOB, abdominal pain, one sided weakness, numbness tingling, N, V. I have reviewed the patient's medications and allergies, past medical, surgical, social and family history, updating these as appropriate. See Histories section of the electronic medical record for adisplay of this information. Patient Active Problem List Diagnosis Code History of pulmonary embolism Z86.711 Type 2 diabetes mellitus without complication, without long-term current use of insulin ([facility]) E11.9 HTN, goal below 130/80 I10 Dyslipidemia, goal LDL below 100 E78.5 Eczematous dermatitis of eyelid H01.139 Depressed mood R45.89 Migraine variant G43.809 Kidney stone on left side N20.0 Dyslipidemia E78.5 Recurrent major depressive disorder (HCC) F33.9 Type 2 diabetes mellitus with diabetic dermatitis ([facility]) E11.620 Urinary incontinence in female R32 Family History Problem Relation Age of Onset Diabetes Mother Diabetes Father Diabetes Sister Diabetes Sister Diabetes Grandmother (Maternal) Diabetes Grandfather (Maternal) Diabetes Grandmother (Paternal) Diabetes Grandfather (Paternal) Hypertension Father Renal Hx Mother Medications: Are you taking your medications? yes Current Outpatient Medications Medication Sig Dispense Refill [...] in the morning. Vitamin A 4.5 MG (73916 UT) Oral Tablet Take by mouth. Magnesium [...] op pain). With food. 30 Tablet 0 Nitrofurantoin Monohyd Macro 100 MG Oral Capsule (Macrobid) Take 1 Capsule by mouth in the morning and 1 Capsule before bedtime. Do all this for 7 days. With food. Until gone.. 14 Capsule 0 Galcanezumab-gnlm 120 MG/ML Subcutaneous Solution Auto-injector (Emgality) 2 injections first monthand then 1 injection there after 1 mL 0 Galcanezumab-gnlm 120 MG/ML Subcutaneous Solution Auto-injector (Emgality) 1 injection every month after the first loading dose 1 mL 0 No current facility-administered medications for this visit. Review of patient's allergies indicates: Allergen Reactions Bydureon [Exenatide] Hives Review of Systems: A total number of 10 systems were reviewed pertinent negative and positives not addressed in HPI are listed in the following review. Physical Exam: Constitutional: BP 142/92 | Pulse 76 | Temp 37 C (98.6 F) (Tympanic) | Resp 18 | Wt 71.9 kg (158 lb 9.6 oz) | SpO2 96% | BMI 27.41 kg/m | BSA 1.8 m , appearance nourished, healthy, and normal Ears, Nose, Mouth and Throat: mucous membranes moist, no injection and skin normal, eyes normal Cardiovascular: normal S-1 and S-2 and regular rate and rhythm Respiratory: clear to auscultation (CTA) and no rales, ronchi or wheeze Musculoskeletal: no peripheral edema Skin: normal and intact Eyes: extraocular muscles intact (EOMI) and pupils equal, round and reactive to light (PERRL) NEUROLOGIC EXAMINATION: Mental status: Alert and interactive Oriented to full date and location Oriented to person Speech fluent with no evidence of aphasia Cranial Nerves Normal findings for Cranial Nerves II - XII Coordination: rapid alternating movements are intact: Bilateral and on [id number] Gait/Stance: Posture normal. Gait normal: with steady with steps, base, arm swing, and tandem gait. Motor: Negative for pronator drift of out stretched arms with eyes closed. Strength: Normal - 5/5 all extremities LABORATORY: Recent labs reviewed Review of prior Studies: No recent imaging available. Impression: Zhanna Mcqueen is a 62 year old woman with a history of migraine headaches. Her neurologic examination today reveals no new focal deficit. The history and examination are suggestive of diagnosis/problem list. Testing and Referrals ordered: none ICD-10-CM 1. Migraine variant G43.809 2. Type 2 diabetes mellitus without complication, without long-term current use of insulin (HCC) E11.9 Return in 6 months or sooner if needed Continue nortriptyline 10 mg (2 tab) hs for now if Emgality is approved and working taper down to 1tab x 5 days then stop Start Emgality 120 mg/ml (2 injections) the first month and then (1 injection) every month there after Keep well hydrated Decrease use of OTC medications which result in over use headaches PCP for medical management Call with questions concerns. Medical Decision Making (determined by lowest of 2 of 3 elements): The medical decision making element of the number and complexity of problems addressed included at least 1 or more chronic illnesses with exacerbation, progression, or side effects of treatment (level 4). The medical decision making element of risk of complications, morbidity, and mortality of patient management is moderate (level 4) due to prescription drug management (moderate risk). The medical decision making element of the amount and complexity of data reviewed and analyzed included an independent interpretation of a test (level 4 at least). When 2 of 3 reach level 4, then this element is considered extensive (level 5). I personally spent a total of 30 minutes. This time was for a new office or established visit and was on the same calendar day. Education / Consultation - Topics covered as I spent 20 minutes, which is greater than 50% of this visit, counseling the patient on: Diagnostic Results Prognosis Risks and benefits of treatment options Risk factor reductions Patient and family education Consulted with physician: Bhupinder Caldwell DO was available for direct supervision. Copy of note sent to PCP and Referring Provider. Total time of visit: 30 minutes. Talita Rucker PA-C Neurology [facility] [place] [address] [address] [place] [address] 03/14/2023 1:26 PM documented in this encounter Nursing Notes * Kiana Givens LPN - 03/14/2023 1:21 PM EDT Chief Complaint Patient presents with Return Neuro documented in this encounter Plan of Treatment Upcoming Encounters Date Type Specialty Care Team Description 04/02/2023 Office Visit Gynecology Urology Félix Sandoval MD [address] [place] [address] 05/14/2023 Office Visit Gastroenterology Ale Stover DO [address] [place] [address] 09/17/2023 Office Visit Neurology Talita Rucker PA-C [address] [place] [address] Scheduled Procedures Name Priority Associated Diagnoses Date/Ti [...] this encounter Medical Devices Implanted Type Area Hand Brim Ironer Device Identifier Shelf Expiration Date Model / Serial / Lot Sling Barbra One - [id number] Implanted:Qty: 1 on 03/08/2023 by Félix Sandoval MD at OR [facility] N/A: Vagina [employer] 03/08/2024 [id number] / / [id number] documented as of this encounter Visit Diagnoses Diagnosis Migraine variant- Primary Variants of migraine, not elsewhere classified, without mention of intractable migraine without mention of status migrainosus Type 2 diabetes mellitus without complication, without long-term current use of insulin (HCC) documented in this encounter Advance Directives Latest Code Status on File Code Status Date Activated Date Inactivated Comments Full Code 03/08/2023 9:29 AM 03/08/2023 3:20 PM This or stacey reflects the patients wishes and were consensually agreed upon. Question Answer Comments Discussion of Advance Directives occurred with: Patient Care Teams Welfare Eligibility Worker Relationship Specialty Start Date End Date Warner Hernandez DO [address] [place] [address] PCP - General Family Medicine 11/14/20 documented as of this encounter"
--- OUTSIDE RECORDS SUMMARY | 2023-09-04 19:26 | External Medical Summary ---
Author Name Unknown Address Unknown Organization K01:[facility] [place] - [address] [place] [id number] Laboratory Report Ordering Provider Test Date Status [id number] 03/11/2023 16:03:46 Final Observation Date Value Abnormality Reference (Units) Status Bacteria identified in Specimen by Culture 03/11/2023 16:03:46 No significant growth Final Test: Culture, Urine, Quant itative
Specimen Source: Urine, Clean Catch
Specimen Type: Urine
Specimen Date: 03/11/2023 4:03 PM
Result Date: 03/12/2023 4:06 PM
Result Status: Final result
Resulting Lab: [facility]
[address]
[facility] [address]

CULTURE

No significant growth

null Performing Location [facility] - [address] [facility] [address]
--- OUTSIDE RECORDS SUMMARY | 2023-09-04 19:26 | External Medical Summary | Summary of Care ---
Author Name Unknown Organization [facility] Address [address] [address] Phone [phone] Care Team Providers Care Marker Delivery Name Role Phone Warner Hernandez DO Primary Care Provider + [phone] Reason for Visit * Reason Comments Outpatient Testing Encounter Details Date Type Department Care Team Description 03/11/2023 Laboratory Laboratory, [facility] [address] [facility] [address] [facility] [address] [facility] [place] [address] Preop examination; Urinary frequency Allergies Active Allergy Reactions Severity Noted Date Comments Exenatide Hives 07/29/2013 documented as of this encounter (statuses as of 03/11/2023) Medications Medication Sig Dispensed Refills Start Date [...] morning. 0 Active Vitamin A 4.5 MG (88121 UT) Oral Tablet Take by mouth. 0 Active Magnesium Oxide 400 MG Oral Capsule Take by mouth 1 Capsule in the morning. 90 Capsule 2 11/13/2021 Active Riboflavin 400 MG Oral Tablet Take by mouth 1 Tablet in the morning. 90 Tablet 2 11/13/2021 Active Ezetimibe 10 MG Oral Tablet (Zetia)Indications :Dyslipidemia Take by mouth 1 Tablet in the morning. 90 Tablet 3 02/22/2022 Active Additional Information Patient taking differently:10 mg Oral Daily(AM), Takes in the evening, Reported on 03/06/2023 Accu-Chek FastClix Lancet Kit Use to check blood glucose once daily Dx E11.9 1 Kit 0 07/19/2022 Active Accu-Chek Arlen Plus In Vitro Strip (Glucose Blood)Indications: Type 2 diabetes mellitus with hemoglobin A1c goal of less than 7.0% (HCC) Use once daily for glucose testing. 100 Strip 3 07/30/2022 Active D-Care Glucometer w/Device KitIndications:Typ e 2 diabetes mellitus with hemoglobin A1c goal of less than 7.0% (HCC) Use as directed. Use as directed for home glucose testing once daily 1 Kit 0 07/30/2022 Active LancetsIndications :Type 2 diabetes mellitus with hemoglobin A1c goal of less than 7.0% (HCC) Use as directed once daily for glucose testing. 100 Each 11 07/30/2022 Active Atorvastatin Calcium 80 MG Oral Tablet (Lipitor)Indicatio ns:Dyslipidemia, goal LDL below 100 Take 1 Tablet by mouth in the morning. 90 Tablet 3 09/10/2022 Active Additional Information Patient taking differently:80 mg Oral Daily(AM), Takes in the evening, Reported on 03/06/2023 buPROPion HCl ER (SR) 150 MG Oral Tablet Extended Release 12 Hour (Wellbutrin SR)Indications:Dep ressed mood Take 1 Tablet by mouth in the morning and 1 Tablet before bedtime. 180 Tablet 3 09/10/2022 Active SUMAtriptan Succinate 100 MG Oral TabletIndications: Migraine variant Take 1 Tablet by mouth daily [...] Active Nortriptyline HCl 10 MG Oral Capsule (Pamelor)Indicatio ns:Migraine variant Take 2 Capsules by mouth at bedtime. 180 Capsule 2 11/19/2022 Active Omeprazole 20 MG Oral Capsule Delayed Release (PriLOSEC)Indicati ons:Gastroesophage al reflux disease TAKE 1 CAPSULE IN THE MORNING AND BEFORE BEDTIME 180 Capsule 3 12/08/2022 Active Ozempic (2 MG/DOSE) 8 MG/3ML Subcutaneous Solution Pen-injector (Semaglutide (2 MG/DOSE))Indicatio ns:Type 2 diabetes mellitus with hyperglycemia, without long-term current use of insulin (HCC) INJECT 0.75 ML UNDER THE SKIN ONCE WEEKLY 9 mL 1 02/19/2023 Active Lisinopril 20 MG Oral Tablet (Prinivil)Indicati ons:HTN, goal below 130/80 Take 1 Tablet by mouth in the morning. 90 Tablet 3 03/01/2023 Active Additional Information Patient taking differently:20 mg Oral Daily(AM), Takes in the evening, Reported on 03/06/2023 Ibuprofen 800 MG Oral Tablet (Motrin) Take 0.75 Tablets by mouth every 8 hours as needed (post op pain). With food. 30 Tablet 0 03/08/2023 Active Nitrofurantoin Monohyd Macro 100 MG Oral Capsule (Macrobid) Take 1 Capsule by mouth in the morning and 1 Capsule before bedtime. Do all this for 7 days. With food. Until gone.. 14 Capsule 0 03/11/2023 03/18/2023 Active documented as of this encounter (statuses as of 03/11/2023) Active Problems Problem Noted Date Recurrent major [...] as of this encounter (statuses as of 03/11/2023) Resolved Problems Problem Noted Date Resolved Date Acute suppurative otitis media 03/13/2013 1 Migraine 11/06/2011 05/31/2015 Major depressive disorder 08/24/20112014 Overview: ICD-10 update of inactive term Dyspnea and respiratory abnormality 01/01/2008 12/27/2016 Overview: ICD-10 update of inactive term documented as of this encounter (statuses as of 03/11/2023) Immunizations Name Administration Dates Next Due COVID-19 mRNA, LNP-s, No Pre serve, 2-Dose Series (Moderna) 08/27/2020,07/25/2020 COVID-19, mRNA, LNP-s, PF, B ooster, 100mcg/0.5mg (Moderna) 06/28/2021 Covid-19, Mrna, Lnp-s, Pf, B ivalent, 30 Mcg, IM, 12 yrs and above ([employer]) 07/27/2022 Hepatitis B, 20+ yrs 10/20/2021,08/23/2021 PPD 03/06/2016 Pneumococcal Conjugate Vacci ne, 20-valent ([id number]) 02/22/2022 Pneumococcal Polysaccharide PPV23 (Pneumovax) 09/12/2011 Seasonal [...] Encounters Date Type Specialty Care Team Description 03/13/2023 Imaging Radiology 03/13/2023 Imaging Radiology 03/14/2023 Office Visit Neurology Talita Rucker PA-C [address] [place] [address] 03/15/2023 Nurse Only Ancillary Jurgen, Nurse Moshe Galvan [address] [place] [address] 04/02/2023 Office Visit Gynecology Urology Félix Sandoval MD [address] [place] [address] 05/14/2023 Office Visit Gastroenterology Ale Stover DO [address] [place] [address] Pending Results Name Type Priority Associated Diagnoses Date /Time URINALYSIS WITH MICROSCOPIC EXAM Lab Routine Preop examination 03/11/2023 4:03 PM EDT CULTURE, URINE, QUANTITATIVE Lab Routine Urinary frequency 03/11/2023 4:03 PM EDT Scheduled Procedures Name Priority Associated Diagnoses [...] 10/20/2018, Additional history exists HbA1c 09/04/2023 03/06/2023, 030 07/2022, 02/28/2022, Additional history exists Mammogram 02/23/2024 [...] this encounter Medical Devices Implanted Type Area Stocking Inspector Device Identifier Shelf Expiration Date Model / Serial / Lot Sling Barbra Chan - [id number] Implanted:Qty: 1 on 03/08/2023 by Félix Sandoval MD at OR [facility] N/A: Vagina [employer] 03/08/2024 [id number] / / [id number] documented as of this encounter Visit Diagnoses Diagnosis Preop examination Preoperative examination, unspecified Urinary frequency documented in this encounter Advance Directives Latest Code Status on File Code Status Date Activated Date Inactivated Comments Full Code 03/08/2023 9:29 AM 03/08/2023 3:20 PM This or stacey reflects the patients wishes and were consensually agreed upon. Question Answer Comments Discussion of Advance Directives occurred with: Patient Care Teams Marker Delivery Relationship Specialty Start Date End Date Warner Hernandez DO [address] [place] [address] PCP - General Family Medicine 11/14/20 documented as of this encounter
--- OUTSIDE RECORDS SUMMARY | 2023-09-04 19:26 | External Medical Summary ---
Author Name Unknown Address Unknown Organization [id number]:[facility]ORY [facility] - [address] [facility] [place] [address] Laboratory Report Ordering Provider Test Date Status MARTIN WALKER 03/11/2023 16:03:46 Final Observation Date Value Abnormality Reference (Units ) Status Color of Urine by Auto 03/11/2023 16:03:46 Light Yellow Colorless, Light Yellow, Yellow, Dark Yellow Final Clarity, Urine 03/11/2023 16:03:46 Clear Clear Final Glucose [Mass/volume] in Urine by Automated test strip 03/11/2023 16:03:46 Negative Negative (mg/dL) Final Bilirubin.total [Presence] in Urine by Automated test strip 03/11/2023 16:03:46 Negative Negative Final Ketones [Mass/volume] in Urine by Automated test strip 03/11/2023 16:03:46 Negative Negative (mg/dL) Final Specific gravity, Urine 03/11/2023 16:03:46 1.019 1.003-1.030 Final Hemoglobin [Presence] in Urine by Automated test strip 03/11/2023 16:03:46 Moderate Abnormal Negative Final pH, Urine 03/11/2023 16:03:46 7.5 5.0-7.5 (Units) Final Protein [Mass/volume] in Urine by Automated test strip 03/11/2023 16:03:46 30 Abnormal Negative (mg/dL) Final Urobilinogen [Mass/volume] in Urine by Automated test strip 03/11/2023 16:03:46 Normal Normal (mg/dL) Final Nitrite [Presence] in Urine by Automated test strip 03/11/2023 16:03:46 Negative Negative Final Leukocyte esterase [Presence] in Urine by Automated test strip 03/11/2023 16:03:46 Negative Negative Final RBC, Urine 03/11/2023 16:03:46 0-2 0-2 (/HPF) Final WBC, Urine 03/11/2023 16:03:46 0-2 0-2 (/HPF) Final Bacteria [#/area] in Urine sediment by Microscopy high power field 03/11/2023 16:03:46 0-25 0-25 (/HPF) Final Performing Location [facility] - [facility] [address] [facility] [address]
--- OUTSIDE RECORDS SUMMARY | 2023-09-04 19:26 | External Medical Summary | Summary of Care ---
Author Name Unknown Organization [facility] Address [address] [facility] [address] Phone [phone] Care Team Providers Care Lab Rn Name Role Phone Mary Warner Primary Care Provider Reason for Visit * Auth/Cert Specialty Diagnoses / Procedures Referred By Cahnce slaughter Referred To Contact Diagnoses Stress incontinence, female Stress incontinence, female [N39.3] Procedures REPAIR BLADDER DEFECT CYSTOSCOPY VAGINAL SLING PROCEDURE FOR STRESS INCONTINENCE CYSTOURETHROSCOPY Referral ID Status Reason Start Date Expiration Date Visits Re quested Visits Authorized [id number] Encounter Details Date Type Department Care Team Description 03/08/2023 Hospital Encounter OR [facility], Operating Room [facility] [address] [place] [id number] Félix Sandoval MD [address] [place] [address] Allergies Active Allergy Reactions Severity Noted Date Comments Exenatide Hives 07/29/2013 documented as of this encounter (statuses as of 03/08/2023) Medications Medication Sig Dispensed Refills Start Date [...] morning. 0 Active Vitamin A 4.5 MG (82276 UT) Oral Tablet Take by mouth. 0 [...] With food. 30 Tablet 0 03/08/2023 Active documented as of this encounter (statuses as of 03/08/2023) Active Problems Problem Noted Date Recurrent major [...] as of this encounter (statuses as of 03/08/2023) Resolved Problems Problem Noted Date Resolved Date Acute suppurative otitis media 03/13/2013 1 Migraine 11/06/2011 05/31/2015 Major depressive disorder 08/24/20112014 Overview: ICD-10 update of inactive term Dyspnea and respiratory abnormality 01/01/2008 12/27/2016 Overview: ICD-10 update of inactive term documented as of this encounter (statuses as of 03/08/2023) Immunizations Name Administration Dates Next Due COVID-19 mRNA, LNP-s, No Pre serve, 2-Dose Series (Moderna) 08/27/2020,07/25/2020 COVID-19, mRNA, LNP-s, PF, B ooster, 100mcg/0.5mg (Moderna) 06/28/2021 Covid-19, Mrna, Lnp-s, Pf, B ivalent, 30 Mcg, IM, 12 yrs and above ([employer]) 07/27/2022 Hepatitis B, 20+ yrs 10/20/2021,08/23/2021 PPD 03/06/2016 Pneumococcal Conjugate Vacci ne, 20-valent ([id number]) 02/22/2022 Pneumococcal Polysaccharide PPV23 (Pneumovax) 09/12/2011 Seasonal [...] Sign Reading Time Taken Comments Blood Pressure 120/65 03/08/2023 10:40 AM EDT Pulse 77 03/08/2023 10:40 AM EDT Temperature 36.3 C (97.3 F) 03/08/2023 1 0:25 AM EDT Respiratory Rate 16 03/08/2023 10:4 0 AM EDT Oxygen Saturation 96% 03/08/2023 10: 40 AM EDT Inhaled Oxygen Concentration - - Weight 73.4 kg (161 lb 13.1 oz) 03/08/2023 7:14 AM EDT Height 162 cm (5' 3.78") 03/08/2023 7:14 AM EDT Body Mass Index 27.97 03/08/2023 7:14 AM EDT documented in this encounter Discharge Instructions * Discharge Instr - AVS* Félix Sandoval MD - 03/08/2023 9:25 AM EDT Discharge Date: 03/08/2023 You may call the department of Obstetrics and Gynecology during business hours for any questions ortest results. [phone] After hours, you may call the number above and follow the prompts for more information on the next steps in your care. For acute concerns, you may also call the hospital directly and have the jointer operator page the PAYLOADER OPERATOR physician second language tutor. [facility] sites are available 24 hours a day. You can call or schedule an appointment online at a location near your home. Check your Patient Education Brochure for further information. The information below provides you with the instructions following discharge from the hospital. If you have any questions, please ask before leaving. Please carry this letter with you when you see your doctor in the clinic. If you have questions, you can reach us at the numbers above. Diet Start with clear liquids (jell-o, tea, apple juice). Avoid dairy products (milk, cheese, pudding, ice cream) and fried or greasy foods. Progress to prescribed diet as tolerated. If nausea should occur, have clear liquids only until soft foods can be tolerated. Activity A responsible adult must be with the patient for 24 hours after surgery. We encourage light walkingintermittently in the first days following surgery for the quickest recovery and increase activity as tolerated. DO NOT drive, operate any appliances and/or machinery or sign legal documents for 24 hours. Over the Counter (OTC) Pain Medications Sbij-dho-osmftbu Tylenol 325 mg, take 2 tablets by mouth every 6 hours as needed for pain Izvg-fox-stukkos Ibuprofen 200 mg, take 3 tablets by mouth every 6 hours as needed for pain For the best pain control using rldr-twk-nmkasll Tylenol and Ibuprofen, alternate Ibuprofen and Tylenol so that you are taking 1 medication every 3 hours (ex: If you take Tylenol at 12:00 PM, take Ibuprofen at 3:00 PM, and then you will be permitted to take Tylenol again at 6:00 PM, and Ibuprofen at 9:00 PM, etc). Do not exceed Tylenol 4000mg or Ibuprofen 2400mg in a 24 hour period. See the sections below on your After Visit Summary (AVS) for other medications that have been prescribed. Warnings Call your surgeon promptly in case of: Excessive bleeding Fever greater than 101 degrees fahrenheit (38.3 degrees centigrade) Persistent nausea and vomiting Redness, swelling, or pus-like drainage Pain that is not relieved by the medicine you were told to take Follow Up Please follow up with Dr. Sandoval on 04/02/2023 as previously scheduled. See your primary care physician (Warner Hernandez DO) as regularly scheduled. If you have any scheduled appointments at [facility], they will be listed below on your After Visit Summary (AVS). Return to Work or School You may return to work or school as previously discussed with Dr. Sandoval Special Instructions You may have vaginal bleeding that requires a pad. If your bleeding saturates more than 1 heavy padper hour, please notify your physician. Maintain pelvic rest (nothing in the vagina - no douching, tampons, or sexual intercourse) for at least 4 weeks. Frequently Asked Questions During Recovery 8. Post-Operative Appointments - In general, I would like to see you in the office about two weeks,six weeks, three months and one year after the date of your surgery, and more often if necessary. If you have not already made the two- week appointment, please do so now by calling . Each of these appointments gives me specific information as to how well you are doing after surgery and what the surgery has accomplished. If you had an anti-incontinence operation, postoperative urodynamic testing may be performed after surgery to provide information about the success of the surgery and about subtle, underlying problems that may persist. 9. Emergencies - You should be able to get a message through to me by calling [phone], day or night. Outside of normal business hours, this number functions as my answering service and you will normally be put in touch with either myself or one of my residents. If my resident cannot take care of your problem satisfactorily, he or she will usually contact me directly. There is always someone,either myself or one of my partners, available 24 hours a day, seven days a week. 10. Catheter - If you go home with a catheter, you will be asked to come back to the clinic one week after surgery to take the catheter out and have a voiding trial. A minority of women continue having difficulty emptying their bladder and the options then are to replace the catheter and have you come back in one week, or teach you or a family member how to do intermittent self- catheterization. When you have the catheter in place, the tube can be attached to a leg bag so that you can move around with ease. Make sure you empty the bag every time it fills up and before you go to bed at night. I hope that these instructions are helpful to you. Hopefully, it is clear to you that successful, long-lasting surgery is a joint effort by both of us. Most of my work is done now and yours is just beginning. I look forward to helping you have a good recovery and enjoy the results of good urogynecologic and reconstructive pelvic surgery! documented in this encounter Progress Notes * Félix Sandoval MD - 03/08/2023 9:25 AM EDT [facility] [place] [address] [place] [address] OUTPATIENT SURGERY DISCHARGE SUMMARY NOTE Name: Zhanna Mcqueen Location: OR [facility]/OR Date: 03/08/2023 Time: 9:26 AM Surgery Date: 03/08/2023 Procedure: Procedure(s): VAGINAL SLING PROCEDURE FOR STRESS INCONTINENCE CYSTOURETHROSCOPY N/A N/A Surgeon: Surgeon(s): Félix Sandoval MD Discharge Diagnosis: RUSH After examination of this patient, I have determined she is ready for discharge to home when the patient meets criteria. Discharge instructions were given to the patient. documented in this encounter H&P Notes * Félix Sandoval MD - 03/08/2023 7:30 AM EDT 03/08/2023 Zhanna Mcqueen is a 62 year old female P 3 with mixed urinary incontinence who presents for a sling and cystoscopy. Referred by Warner Hernandez DO. Zhanna Mcqueen complains of RUSH with coughing, laughing, sneezing. She complains of urge incontinence which is more severe in the winter when she leaves warmth of herhome and is exposed to cold air, she will have sudden urgency. She uses the restroom every 2 hours.Awakens 2-3 times a night with nocturia. She will use 4 pads in the winter, 1-2 pads a day when the weather is warmer. Urinary: Leakage: mixed Has leakage daily Wears pads: yes She denies a sense of incomplete bladder emptying. Prior/current treatment include: Pelvic floor PT UTI: Denies Voiding detail: Daytime frequency: every 2 hours Urgency yes Nocturia:2-3 times Hesitancy no Straining no Hematuria no Postvoid dribbling no Postvoid urgency no Manual reduction no Drinks: water only Prolapse: She denies a palpable bulge. GI: Bowel habits: normal bowel movement With occasional diarrhea She denies fecal incontinence. Prior/ current treatments include: none Gynecologic history: Vaginal hysterectomy for abnormal cells. 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 Surgical History: Past Surgical History: Procedure Laterality Date CARPAL TUNNEL SURGERY Carpal Tunnel repair COLONOSCOPY, DIAGNOSTIC (RECTUM) 04/24/2018 normal, repeat 5 [facility]rs[facility] INFORMATION mandibular and jaw surgery LAP;W/HYSTERECTOMY Hysterectomy Complete LIGATE/CUT OVIDUCT(S) REMOVAL OF APPENDIX REMOVAL OF TONSILS, AGE 12+ REMOVE GALLBLADDER REMOVE NECK SPINE LAMINA, 1-2 SEGS Cervical Laminectomy? C5-c7 TEAR DUCT SYSTEM SURGERY NEC TOTAL ABD HYSTERECTOMY W/WO REMOVAL OF TUBE(S) OB History 3 Para 3 Term 3 AB Living SAB IAB Ectopic Multiple Live Births Weight of largest baby: 8-13 Vaginal deliveries: 3 C/S: 0 Allergies: Review of patient's allergies indicates: Allergen Reactions Bydureon [Exenatide] Hives Active Medications: Current Outpatient Medications Medication Sig Dispense Refill [...] day and as needed. 180 Each 3 Meclizine HCl 25 MG Oral Tablet (Antivert) Take 1 Tab by mouth 3 times a day as needed for Dizziness. 30 Tab 1 Vitamin D-3 25 MCG (1000 UT) Oral Capsule Take 1 Capsule by mouth in the morning. Vitamin A 4.5 MG (97002 UT) Oral Tablet Take by mouth. Nortriptyline HCl 10 MG Oral Capsule (Pamelor) Take 2 Capsules by mouth at bedtime. 180 Capsule 2 Magnesium Oxide 400 MG Oral Capsule Take by mouth 1 Capsule in the morning. 90 Capsule 2 Riboflavin 400 MG Oral Tablet Take by mouth 1 Tablet in the morning. 90 Tablet 2 Ezetimibe 10 MG Oral Tablet (Zetia) Take by mouth 1 Tablet in the morning. 90 Tablet 3 Accu-Chek FastClix Lancet Kit [...] mouth in the morning. 90 Tablet 3 Lisinopril 10 MG Oral Tablet (Prinivil) Take 1 Tablet by mouth in the morning. 90 Tablet 3 buPROPion HCl ER (SR) 150 MG Oral Tablet Extended Release 12 Hour (Wellbutrin SR) Take 1 Tablet by mouth in the morning and 1 Tablet before bedtime. 180 Tablet 3 SUMAtriptan Succinate 100 MG Oral Tablet Take 1 Tablet by mouth daily as needed for Migraine. May take an additional 1 tab in 24 hours if needed 90 Tablet 1 Omeprazole 20 MG Oral Capsule Delayed Release (PriLOSEC) Take 1 Capsule by mouth in the morning and1 Capsule before bedtime. 180 Capsule 3 Glimepiride 4 MG Oral Tablet (Amaryl) Take 1 Tablet by mouth in the morning and 1 Tablet before bedtime. 60 Tablet 5 Ozempic (2 MG/DOSE) 8 MG/3ML Subcutaneous Solution Pen-injector (Semaglutide (2 MG/DOSE)) Inject 0.75 mL under the skin once a week. 3 mL 5 No current facility-administered medications for this visit. 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 Employer: [employer] Tobacco Use Smoking status: Never Smokeless tobacco: Never Vaping Use Vaping Use: Never used Substance and Sexual Activity Alcohol use: No Drug use: No Social Determinants of Health Food Insecurity: No Food Insecurity Worried About Running Out of Food in the Last Year: Never true Ran Out of Food in the Last Year: Never true Family History: Family History Problem Relation Age of Onset Diabetes Mother Diabetes Father Diabetes Sister Diabetes Sister Diabetes Grandmother (Maternal) Diabetes Grandfather (Maternal) Diabetes Grandmother (Paternal) Diabetes Grandfather (Paternal) Hypertension Father Renal Hx Mother BP 163/88 | Pulse 86 | Temp 36.1 C (96.9 F) (Tympanic) | Resp 16 | Ht 1.62 m (5' 3.78") | Wt 73.4 kg (161 lb 13.1 oz) | SpO2 95% | BMI 27.97 kg/m | BSA 1.82 m EXAM: Well developed well nourished female in no apparent distress. Alert oriented x3 HEENT: NC AT HEART: Normal peripheral pulse, edema neg, RRR THYROID: no obvious neck mass LUNG: No increased respiratory effort CTA ABDOMEN: Soft, NT, ND, no masses EXT: NT calves CBC Results: Results for orders placed or performed in visit on 10/20/21 CBC Result Value Ref Range WBC 10.55 4.00 - 10.80 K/uL RBC 4.18 3.85 - 5.15 M/uL HGB 11.7 (L) 12.0 - 15.3 g/dL HCT 36.1 36.0 - 45.2 % MCV 86.4 81.5 - 97.5 fL MCH 28.0 27.0 - 34.0 pg MCHC 32.4 32.0 - 36.0 g/dL RDW 13.1 11.5 - 15.5 % PLT 293 140 - 400 K/uL MPV 12.1 (H) 6.6 - 11.1 fL Basic Panel Results: Results for orders placed or performed in visit on 10/20/21 BASIC METABOLIC PANEL Result Value Ref Range BUN 18 6 - 20 mg/dL Creatinine 0.7 0.5 - 1.0 mg/dL Estimated Glomerular Filtration Rate >90 >=60 mL/min Sodium 138 135 - 146 mmol/L Potassium 4.3 3.5 - 5.1 mmol/L Chloride 100 98 - 107 mmol/L CO2 26 22 - 32 mmol/L Anion Gap 12 7 - 15 mmol/L Glucose 220 (H) 70 - 120 mg/dL Calcium 9.7 8.4 - 10.2 mg/dL Impression: This is a 62 year old with: Mixed incontinence urge and stress (Primary) Urinary frequency Urinary urgency Nocturia RUSH was demonstrated with coughing on exam. I reviewed therapy options including incontinence ring pessary vs mid-urethral sling. We further reviewed the risks of infection, bleeding, injury, pain, mesh exposure, urinary retention. Patient desires mid-urethral sling and cystoscopy. Informed consents signed. Félix Sandoval MD documented in this encounter Nursing Notes * Evon Blas RN - 03/08/2023 11:10 AM EDT Vs stable. Reports pain at 1-2/10 on pain scale, tolerable. Denies nausea and tolerating PO intake.Peripad clean, dry and intact. Verbalized understanding of all discharge directions. Patient stablefor discharge to home. Ambulated to private auto with staff presence. * Evon Blas RN - 03/08/2023 10:50 AM EDT Patient voided 150ml urine without difficulty. Post void bladder scanned for 0ml. Patient reports mild burning in vaginal area, denies need for pain medication. Tolerating clear liquids and crackers.Patients daughter called for transportation. * Lakeisha Gutierrez RN - 03/08/2023 10:10 AM EDT Patient in pacu 2 status. VSS. Monitor NSR. Patient states having mild pain but tolerable. States she feels like she needs to void soon. * Lakeisha Gutierrez RN - 03/08/2023 10:09 AM EDT Patient meets criteria for discharge from pacu 1. Discharge assessment completed- see EMR. * Lakeisha Gutierrez RN - 03/08/2023 9:31 AM EDT Received patient from the OR with the ORGANIC CHEMISTRY TEACHER at the bedside. ORGANIC CHEMISTRY TEACHER aware of VS. Patient sleeping. Opens eyes to verbal stimuli- drowsy and coughing then back to sleep. Oriented x 4. Monitor NSR. VSS. Peripad over perineum D/I. Admission assessment completed- see EMR. documented in this encounter OR Notes * OR Surgeon - Félix Sandoval MD - 03/08/2023 9:29 AM EDT [facility] [address] [address] OPERATIVE REPORT Name: Zhanna Mcqueen Date: 03/08/2023 Time: 9:29 AM Location: [facility] Service: Child Care Giver Date: 03/08/2023 Pre-op Diagnosis: Stress incontinence. Post-op Diagnosis: Same Surgeon: Félix Sandoval MD Assistants: none Anesthesia: General endotracheal anesthesia Operation: Mid-urethral sling Cystoscopy. Findings: normal cystoscopy Specimen and Disposition: None Indications and History: The patient is a 62 year old female with mixed urinary incontinence who complains of RUSH with coughing and sneezing. The risks, benefits, complications, treatment options, and expected outcomes were discussed with the patient and/or family in detail. The possibilities of reaction to medication, pulmonary aspiration, bleeding, recurrent infection, the need for additional procedures, failure to diagnose a condition, and creating a complication requiring transfusion or operation were discussed with the patient who freely signed the consent. The patient concurred with the proposed plan, giving informed consent. Description of Operation: The patient was identified and the procedure verified. The patient was placed in dorsal lithotomy position, prepped and draped in the usual manner. She was identified, and her procedure was also identified. A aquino catheter was placed into the bladder and the bladder was drained. The vaginal mucosa was injected with 0.5% lidocaine with epinephrine overlying the mid-urethra. A small incision of 1.5 cm was made at the mid-urethra. The paraurethral tissue was opened bluntly and to the end of the pubic rami where the obturator foramen was located. This was done bilaterally. TheCaldera Desara single incision sling was assembled. The needle introducer was placed through the incision and advanced to the left beyond the pubic rami. The needle was then inserted into the left obturator internus muscle. The second needle introducer was placed through the incision, advanced beyond the right pubic rami and into the right obturator internus muscle. The Aquino catheter was then removed from the bladder. The urethra and the bladder was scoped. Both were within normal limits. The bladder was filled with 250 ml of irrigation fluid, the scope was removed. Crede maneuver was performed and the sling was appropriately tensioned. When this was completed, the tape had no tension uponit whatsoever. The vaginal incision was reapproximated using 2-0 Vicryl in a running fashion. Hemostasis was confirmed. Topical estrogen was placed. Long acting Bupivacaine was infiltrated into the obturator spaces. All sponge, lap and needle counts were correct. The patient tolerated the procedure well and left the Operating Room in good condition. Estimated Blood Loss: 40 ml. Urine Output: 200 ml. Intravenous Fluid: crystalloid. Complications: none Drains: None Attestation: I performed the procedure cc: Professional Reimbursement and Compliance Warner Hernandez DO documented in this encounter Plan of Treatment Upcoming Encounters Date Type Specialty Care Team Description 03/13/2023 Imaging Radiology 03/13/2023 Imaging Radiology 03/14/2023 Office Visit Neurology Talita Rucker PA-C [address] [facility] [place] [address] 03/15/2023 Nurse Only Ancillary Nurse Moshe Seaman [address] [place] [address] 04/02/2023 Office Visit Gynecology Urology Félix Sandoval MD [address] [place] [address] 05/14/2023 Office Visit Gastroenterology Ale Stover DO [address] [place] [address] Scheduled Orders Name Type Priority Associated Diagnoses Orde r Schedule GLUCOSE METER, POINT OF CARE (COMMUNICATION ORDER) Point of Care Testing Routine As Needed until discontinued starting 03/08/2023 Scheduled Procedures Name Priority Associated Diagnoses Date/Ti me VAGINAL SLING PROCEDURE FOR STRESS INCONTINENCE Stress incontinence, female 03/08/2023 8:35 AM EDT CYSTOURETHROSCOPY Stress incontinence, female 03/08/2023 8:35 AM EDT COLONOSCOPY FLEXIBLE PROXIMA L DIAGNOSTIC Recall Family [...] this encounter Medical Devices Implanted Type Area Eye Glass Frame Polisher Device Identifier Shelf Expiration Date Model / Serial / Lot Sling Barbra Chan - [id number] Implanted:Qty: 1 on 03/08/2023 by Félix Sandoval MD at OR [facility] N/A: Vagina [employer] 03/08/2024 [facility]-[id number] / / [id number] documented as of this encounter Procedures Procedure Name Priority Date/Time Associated Diagnosis Comments GLUCOSE METER, POINT OF CARE RONALD 03/08/2023 10:00 AM EDT GLUCOSE METER, POINT OF CARE RONALD 03/08/2023 8:05 AM EDT documented in this encounter Results * (ABNORMAL) GLUCOSE METER, POINT OF CARE (03/08/2023 10:00 AM EDT) Glucose Meter 135(H) 70 - 120 mg/dL 03/08/2023 10:02 AM EDT [facility] [place] [facility]-00 Blood Whole blood specimen / Unknown 03/08/2023 10:00 AM EDT 03/08/2023 10:02 AM EDT Félix Sandoval MD LAB POINT OF CARE TE ST DOCKED DEVICE UNSOLICITED RESULTS [facility] [address] [place] [address] * (ABNORMAL) GLUCOSE METER, POINT OF CARE (03/08/2023 8:05 AM EDT) Glucose Meter 139(H) 70 - 120 mg/dL 03/08/2023 8:11 AM EDT [facility] [place] [facility]- Blood Whole blood specimen / Unknown 03/08/2023 8:05 AM EDT 03/08/2023 8:11 AM EDT Félix Sandoval MD LAB POINT OF CARE TE ST DOCKED DEVICE UNSOLICITED RESULTS [facility] [place] [facility] [place] [id number] documented in this encounter Administered Medications Inactive Administered Medications - up to 3 most recent administrations Medication Order MAR Action Action Date Dose Rate Site ceFAZolin in dextrose (Ancef) ivpb 2 g 2 g, IV Piggyback, ONCE, 1 dose, On Sat03/08/23 at 0730, Pre-Op New Bag 03/08/2023 8:49 AM EDT 2 g 100 mL/hr fentaNYL (PF) inj 25 mcg 25 mcg, IV Push, PRN Pain, Severe, Starting on Sat03/08/23 at 0944, Until Sat03/08/23 at 1520, For 6 doses, When given IV Push its recommended that the dose be given over 3 to 5 minutes. , PACU isolyte-S pH 7.4 infusion Intravenous, at 100 mL/hr, Plasma-LYTE 148, isolyte-S, and isolyte-S pH 7.4 are considered equivalent - including for MAR barcode scanning., CONTINUOUS, Starting on Sat03/08/23 at 0730, Until Sat03/08/23 at 1520, Pre-Op Continue from Pre-Op 03/08/2023 8:50 AM EDT 100 mL/hr New Bag 03/08/2023 7:40 AM EDT 100 mL/hr ondansetron (Zofran) inj 4 mg 4 mg, IV Push, PRN Nausea, Starting on Sat03/08/23 at 0944, Until Sat03/08/23 at 1520, For 1 dose, PACU oxygen GAS Inhalation, OXYGEN, First dose on Sat03/08/23 at 1030, Until Discontinued, Device/Managed by: Low Flow Device, Goal SPO2 (%): 91-95, Starting Device: Nasal Cannula, Inital Flow Rate (LPM): 2, Lowest Support: Nasal Cannula: Flow 0-6 LPM. Titrate up/down by 1 LPM., Titration Interval: Q2 minutes and as needed., Notify Provider: For sudden DECREASE in resting SPO2 to less than 85% and when escalating delivery device., PACU I - Oxygen for saturation below 95% as indicated per anesthesia. PACU I - Discontinue oxygen when patient is responsive and oxygen saturation is maintained above 94% on room air or same as preanesthetic level. documented in this encounter Active and Recently Administered Medications Times are shown in EDT. Scheduled Medication Order 03/06/2023 03/07/2023 03/08/2023 ceFAZolin in dextrose (Ancef) ivpb 2 g (COMPLETED) 2 g, IV Piggyback, ONCE, 1 dose, On Sat03/08/23 at 0730, Pre-Op 0849 (New Bag - Prov ider: Divya Morrison, RN) oxygen GAS Inhalation, OXYGEN, First dose on Sat03/08/23 at 1030, Until Discontinued, Device/Managed by: Low Flow Device, Goal SPO2 (%): 91-95, Starting Device: Nasal Cannula, Inital Flow Rate (LPM): 2, Lowest Support: Nasal Cannula: Flow 0-6 LPM. Titrate up/down by 1 LPM., Titration Interval: Q2 minutes and as needed., Notify Provider: For sudden DECREASE in resting SPO2 to less than 85% and when escalating delivery device., PACU I - Oxygen for saturation below 95% as indicated per anesthesia. PACU I - Discontinue oxygen when patient is responsive and oxygen saturation is maintained above 94% on room air or same as preanesthetic level. 1030 (Due) Continuous Medication Order 03/06/2023 03/07/2023 03/08/2023 isolyte-S pH 7.4 infusion Intravenous, at 100 mL/hr, Plasma-LYTE 148, isolyte-S, and isolyte-S pH 7.4 are considered equivalent - including for MAR barcode scanning., CONTINUOUS, Starting on Sat03/08/23 at 0730, Until Sat03/08/23 at 1520, Pre-Op 0740 (New Bag - Prov ider: Divya Morrison RN)0850 (Continue from Pre-Op - Provider: Tracy Ramsey CRNA)0931 (Anes Intra-Op Fluid - Provider: Onesimo Gonzalez CRNA) PRN Medication Order 03/06/2023 03/07/2023 03/08/2023 bupivacaine Liposome (Exparel) infiltration (CANCELED) ONCE PRN INTRA PROCEDURE, Starting on Sat03/08/23 at 0908, Until Sat03/08/23 at 0920, Intra-Op 0908 (Given - Provid er: Félix Sandoval MD - Comment: perineum at end) Estrogens Conjugated (Premarin) vaginal cream (CANCELED) ONCE PRN INTRA PROCEDURE, Starting on Sat03/08/23 at 0909, Until Sat03/08/23 at 0920, Intra-Op 0909 (Given - Provid er: Félix Sandoval MD - Comment: perineum at end) fentaNYL (PF) inj 25 mcg 25 mcg, IV Push, PRN Pain, Severe, Starting on Sat03/08/23 at 0944, Until Sat03/08/23 at 1520, For 6 doses, When given IV Push its recommended that the dose be given over 3 to 5 minutes. , PACU lidocaine-epinephrine 0.5 %-1:[id number] inj (CANCELED) ONCE PRN INTRA PROCEDURE, Starting on Sat03/08/23 at 0909, Until Sat03/08/23 at 0920, Intra-Op 0909 (Given - Provid er: Félix Sandoval MD - Comment: perineum) ondansetron (Zofran) inj 4 mg 4 mg, IV Push, PRN Nausea, Starting on Sat03/08/23 at 0944, Until Sat03/08/23 at 1520, For 1 dose, PACU sodium chloride IR 0.9 % irrigation (CANCELED) ONCE PRN INTRA PROCEDURE, Starting on Sat03/08/23 at 0910, Until Sat03/08/23 at 0920, Intra-Op 0910 (Given - Provid er: Félix Sandoval MD - Comment: qs - cysto) documented in this encounter Advance Directives Latest Code Status on File Code Status Date Activated Date Inactivated Comments Full Code 03/08/2023 9:29 AM 03/08/2023 3:20 PM This or stacey reflects the patients wishes and were consensually agreed upon. Question Answer Comments Discussion of Advance Directives occurred with: Patient Care Teams Lab Rn Relationship Specialty Start Date End Date Warner Hernandez DO [address] [place] [id number] PCP - General Family Medicine 11/14/20 documented as of this encounter
--- OUTSIDE RECORDS SUMMARY | 2023-09-04 19:26 | External Medical Summary | Summary of Care ---
Author Name Unknown Organization [facility] Address [address] [place] [address] Phone [phone] Care Team Providers Care Ship[employer] Name Role Phone Warner Hernandez DO Primary Care Provider Encounter Details Date Type Department Care Team Description 03/08/2023 Orders Only Family Practice [facility] [address] [place] [id number] Warner Hernandez DO [address] [place] [id number] Allergies Active Allergy Reactions Severity Noted Date Comments Exenatide Hives 07/29/2013 documented as of this encounter (statuses as of 03/08/2023) Medications Medication Sig Dispensed Refills Start Date End Date Status Ibuprofen 800 MG Oral Tablet (Motrin) Take 0.75 Tablets by mouth every 8 hours as needed (post op pain). With food. 30 Tablet 0 03/08/2023 Active ASPIRIN 81 MG PO CHEW One pill by mouth once a day with food 100 Tab 5 07/25/2011 Suspended ONETOUCH DELICA LANCING DEV MISCIndications:DM type 2, goal A1C below 8.0 Use as directed up to 4 times daily 1 Each 0 08/06/2014 Suspended Insulin Pen Needle (BD PEN NEEDLE SHORT U/F) 31G X 8 MM Use up to four times a day and as needed. 180 Each 3 12/29/2018 Suspended Additional Information Vitamin D-3 25 MCG (1000 UT) Oral Capsule Take 1 Capsule by mouth in the morning. 0 Suspended Vitamin A 4.5 MG (70792 UT) Oral Tablet Take by mouth. 0 Suspended Magnesium Oxide 400 MG Oral Capsule Take by mouth 1 Capsule in the morning. 90 Capsule 2 11/13/2021 Suspended Additional Information Riboflavin 400 MG Oral Tablet Take by mouth 1 Tablet in the morning. 90 Tablet 2 11/13/2021 Suspended Additional Information Ezetimibe 10 MG Oral Tablet (Zetia)Indications :Dyslipidemia Take by mouth 1 Tablet in the morning. 90 Tablet 3 02/22/2022 Suspended Additional Information Patient taking differently:10 mg Oral Daily(AM), Takes in the evening, Reported on 03/06/2023 Accu-Chek FastClix Lancet Kit Use to check blood glucose once daily Dx E11.9 1 Kit 0 07/19/2022 Suspended Additional Information Accu-Chek Arlen Plus In Vitro Strip (Glucose Blood)Indications: Type 2 diabetes mellitus with hemoglobin A1c goal of less than 7.0% (HCC) Use once daily for glucose testing. 100 Strip 3 07/30/2022 Suspended Additional Information D-Care Glucometer w/Device KitIndications:Typ e 2 diabetes mellitus with hemoglobin A1c goal of less than 7.0% (HCC) Use as directed. Use as directed for home glucose testing once daily 1 Kit 0 07/30/2022 Suspended Additional Information LancetsIndications :Type 2 diabetes mellitus with hemoglobin A1c goal of less than 7.0% (HCC) Use as directed once daily for glucose testing. 100 Each 11 07/30/2022 Suspended Additional Information Atorvastatin Calcium 80 MG Oral Tablet (Lipitor)Indicatio ns:Dyslipidemia, goal LDL below 100 Take 1 Tablet by mouth in the morning. 90 Tablet 3 09/10/2022 Suspended Additional Information Patient taking differently:80 mg Oral Daily(AM), Takes in the evening, Reported on 03/06/2023 buPROPion HCl ER (SR) 150 MG Oral Tablet Extended Release 12 Hour (Wellbutrin SR)Indications:Dep ressed mood Take 1 Tablet by mouth in the morning and 1 Tablet before bedtime. 180 Tablet 3 09/10/2022 Suspended Additional Information SUMAtriptan Succinate 100 MG Oral TabletIndications: Migraine variant Take 1 Tablet by mouth daily as needed for Migraine. May take an additional 1 tab in 24 hours if needed 90 Tablet 1 09/10/2022 Suspended Additional Information Glimepiride 4 MG Oral Tablet (Amaryl) Take 1 Tablet by mouth in the morning and 1 Tablet before bedtime. 60 Tablet 5 09/10/2022 Suspended Additional Information Dexcom G6 Sensor Use as directed. Use 1 sensor every 10 days 9 Each 3 10/24/2022 Suspended Additional Information Dexcom G6 Transmitter Use as directed. Use 1 transmitter every 90 days 1 Each 3 10/24/2022 Suspended Additional Information Nortriptyline HCl 10 MG Oral Capsule (Pamelor)Indicatio ns:Migraine variant Take 2 Capsules by mouth at bedtime. 180 Capsule 2 11/19/2022 Suspended Additional Information Omeprazole 20 MG Oral Capsule Delayed Release (PriLOSEC)Indicati ons:Gastroesophage al reflux disease TAKE 1 CAPSULE IN THE MORNING AND BEFORE BEDTIME 180 Capsule 3 12/08/2022 Suspended Additional Information Ozempic (2 MG/DOSE) 8 MG/3ML Subcutaneous Solution Pen-injector (Semaglutide (2 MG/DOSE))Indicatio ns:Type 2 diabetes mellitus with hyperglycemia, without long-term current use of insulin (HCC) INJECT 0.75 ML UNDER THE SKIN ONCE WEEKLY 9 mL 1 02/19/2023 Suspended Additional Information Lisinopril 20 MG Oral Tablet (Prinivil)Indicati ons:HTN, goal below 130/80 Take 1 Tablet by mouth in the morning. 90 Tablet 3 03/01/2023 Suspended Additional Information Patient taking differently:20 mg Oral Daily(AM), Takes in the evening, Reported on 03/06/2023 documented as of this encounter (statuses as [...] PPD 03/06/2016 Pneumococcal Conjugate Vacci ne, 20-valent ([id number]) 02/22/2022 Pneumococcal Polysaccharide PPV23 (Pneumovax) 09/12/2011 Seasonal [...] Description 03/13/2023 Imaging Radiology 03/13/2023 Imaging Radiology 03/15/2023 Nurse Only Ancillary Nurse Moshe Seaman [address] [place] [address] 04/02/2023 Office Visit Gynecology Urology Félix Sandoval MD [address] [place] [address] 05/14/2023 Office Visit Gastroenterology Ale Stover DO [address] [place] [address] 06/05/2023 Office Visit Neurology Talita Rucker PA-C [address] [place] [address] Scheduled Procedures Name Priority Associated Diagnoses Date/Ti [...] this encounter Medical Devices Implanted Type Area Prepress Operator Device Identifier Shelf Expiration Date Model / Serial / Lot Sling Barbra Chan - [id number] Implanted:Qty: 1 on 03/08/2023 by Félix Sandoval MD at OR [facility] N/A: Vagina [employer] 03/08/2024 [id number] / / [id number] documented as of this encounter Procedures Procedure Name Priority Date/Time Associated Diagnosis Comments CHEMISTRY-OUTSIDE Routine 03/06/2023 documented in this encounter Results * (ABNORMAL) CHEMISTRY-OUTSIDE (03/06/2023) Not all results display below - see scan for full detail OUTSIDE LAB (SEE SCANNED REPORT) Comment:SCAN INCLUDES - BMP, A1C, PTT, PT INR, CBCD, UA CREATININE-OUTSI DE LAB 0.67 0.50 - 1.05 MG/DL OUTSIDE LAB (SEE SCANNED REPORT) EGFR-OUTSIDE LAB 98 >=60 ML/MIN O UTSIDE LAB (SEE SCANNED REPORT) POTASSIUM-OUTSID E LAB 5.3 3.5 - 5.3 MMOL/L OUTSIDE LAB (SEE SCANNED REPORT) GLUCOSE-OUTSIDE LAB 121 65 - 139 MG/DL OUTSIDE LAB (SEE SCANNED REPORT) HOURS FASTING OUTSID E LAB (SEE SCANNED REPORT) TRIGLYCERIDES-OU TSIDE LAB OUTSIDE LAB (SEE SCANNED REPORT) CHOLESTEROL-OUTS RIGO LAB OUTSIDE LAB (SEE SCANNED REPORT) HDL-OUTSIDE LAB OUTS RIGO LAB (SEE SCANNED REPORT) CHOL/HDL RATIO-OUTSIDE LAB OUTSIDE LAB (SEE SCANNED REPORT) LDL (CALCULATED)-OUT SIDE LAB OUTSIDE LAB (SEE SCANNED REPORT) LDL (DIRECT MEASURE)-OUTSIDE LAB OUTSIDE LAB (SEE SCANNED REPORT) HEMOGLOBIN, D6F-WGUWHIR LAB 7.1(H) <5.7 % OUTSIDE LAB (SEE SCANNED REPORT) PHOSPHORUS-OUTSI DE LAB OUTSIDE LAB (SEE SCANNED REPORT) PTH-OUTSIDE LAB OUTS RIGO LAB (SEE SCANNED REPORT) MICROALBUMIN RATIO-OUTSIDE LAB OUTSIDE LAB (SEE SCANNED REPORT) PROTEIN, UA-OUTSIDE LAB 1+ NEGATIVE OUTSIDE LAB (SEE SCANNED REPORT) HEMOGLOBIN-OUTSI DE LAB 11.8 11.7 - 15.5 G/DL OUTSIDE LAB (SEE SCANNED REPORT) 03/06/2023 Warner Hernandez DO LABORATORY OUTSIDE LAB (SEE SCANNED REPORT) documented in this encounter Advance Directives Latest Code Status on File Code Status Date Activated Date Inactivated Comments Full Code 03/08/2023 9:29 AM This order reflects the patients wishes and were consensually agreed upon. Question Answer Comments Discussion of Advance Directives occurred with: Patient Care Teams Ship'[employer] Relationship Specialty Start Date End Date Warner Hernandez DO [address] [place] [id number] PCP - General Family Medicine 11/14/20 documented as of this encounter
[2023-09-05 04:05] LABS: Hematocrit (blood only) 34.6 % (37.0-47.0); Hemoglobin 11.7 g/dl (12.0-16.0); Mean Corpuscular Hemoglobin 27.7 pg (25.0-34.0); Mean Corpuscular Hgb Conc 33.8 g/dL (32.0-36.0); Mean Platelet Volume 12.6 fL (9.4-12.4); Platelet Count 281 K/uL (130-400); RDW Coefficient of Variation 12.9 % (11.5-14.5); RDW Standard Deviation 38.4 fL (36.4-46.3); Red Blood Count 4.22 M/uL (4.20-5.40); White Blood Count 9.08 K/ul (4.8-10.8)
[2023-09-05 04:12] LABS: BUN Creatinine Ratio 27.1 (10-20); Calcium 8.7 mg/dl (8.6-10.3); Chol HDL Ratio 3.6 (0-5); Creatinine Clr Calc Pharmacy 81.1 ml/min; Est GFR (African American) 106.9 ml/min; Est GFR (Non-African American) 92.2 ml/min; Magnesium 1.9 mg/dl (1.7-2.4); Potassium 3.6 mmol/L (3.5-5.1)
[2023-09-05 04:41] LABS: Thyroid Stimulating Hormone 1.129 uIu/ml (0.300-4.500)
[2023-09-05 07:03] LABS: Estimated Average Glucose 163 mg/dl; Hemoglobin A1C 7.3 % (4.5-5.6)
[2023-09-05] MEDS: ACETAMINOPHEN 325 MG TAB PO PRN (08:42)
[2023-09-05] MEDS: ASPIRIN 81 MG ECTAB PO SCH (08:43)
[2023-09-05] MEDS: lisinopril 10 MG TAB PO SCH (08:43)
[2023-09-05] MEDS: ATORVASTATIN 40 MG TAB PO SCH (08:44)
--- NOTE | 2023-09-05 11:32 | Neurology Consultation ---
Date of Consultation September 05, 2023 Assessment & Plan (1) Stroke-like symptoms: Acute headache RUE paresthesia in setting of vastly elevated BP At this time it appears patient's symptoms consistent with TIA versus hypertensive crisis/HTN Emergency. Recommend continued stroke workup to include the following: Recommend CTA head & neck Echocardiogram as part of complete stroke workup Continue frequent neurological assessments Obtain stat CT brain without contrast for any acute neurological decline Continue to monitor/control blood pressure & blood glucose Metabolic workup should include hgbA1c, fasting lipids, homocysteine, TSH, D Dimer Recommend DAPT for at least three weeks Continue high dose statin therapy indefinitely Ok from neurology perspective for VTE prophylaxis PT/OT/SLT to eval and treat Telehealth Consultation Telehealth Information Telehealth Information: I performed this visit using a real-time telehealth connection between my location and the patients location ([facility]). After connecting through interactive tele-video, patient was identified by name and date of and/or wristband check.Patient (or authorized healthcare loss control representative) was informed that this was a telemedicine visit and it was being conducted confidentially over secure lines. My office door was closed and no one else was present in the room with me.Patient (or authorized healthcare loss control representative) provided consent to proceed with the visit, expressed an understanding of privacy and security of the telemedicine visit, and gave permission to have a hospital loss control representative in the room in order to assist with the visit and to conduct portions of the visit, as needed. I informed the patient (or authorized healthcare loss control representative) that I reviewed their record and presented the opportunity for them to ask any questions regarding the visit today. The patient agreed to participate. History of Present Illness Reason for Consultation: Stroke like symptoms Requesting Physician: Dr Quiles Attending Physician: Kb Lockwood MD History of Present Illness 62-year-old female with history of DM2 hypertension hyperlipidemia migraine GERD as well as a history of pulmonary embolism presented to the emergency room complaining of new onset right upper extremity distal/hand paresthesia as well as word finding difficulty/features of aphasia with a headache at the time and was noted to be in severe hypertensive crisis on arrival to the emergency room with systolic blood pressure documented greater than 250 while diastolic greater than 170. Symptoms of speech difficulty reportedly lasted on 20-30mins and have not recurred. She has undergone a CT brain without contrast revealing no evidence of hemorrhage. This was followed by MRI brain both with and without contrast revealing no evidence of acute restricted diffusion for evidence of abnormal/pathological enhancement. I have performed televideo consultation patient awake alert oriented reports all symptoms have completely resolved. NIHSS=0. Denies chest pain/palpitations or shortness of breath. No reported changes in vision hearing dizziness syncope seizure-like activity. No further paresthesia of right hand. Blood pressure blood glucose still being managed. Was out of bed with therapy this time. Discussed MRI results and recommendations to continue with secondary stroke prevention. Patients parents at bedside all questions answered. I have discussed my recommendations to undergo CT angiographic studies of both head and neck to adequately evaluate cerebral vasculature. Patient is agreeable. Allergies Allergy/AdvReac Type Severity Reaction Status Date / Time exenatide [From [employer]] Allergy Hives Verified 09/04/23 12:52 Home Medications Medication Instructions Recorded Confirmed Type sumatriptan succinate 100 mg 1 tab PO UD PRN Migraine Headache 04/17/18 09/04/23 History tablet (Imitrex) galcanezumab-gnlm 120 mg/mL 120 mg subcut MO 09/04/23 09/04/23 History subcutaneous pen injector (Emgality Pen) glimepiride 4 mg tablet 4 mg PO BID 09/04/23 09/04/23 History semaglutide 2 mg/dose (8 mg/3 mL) 2 mg subcut WK 09/04/23 09/04/23 History subcutaneous pen injector (Ozempic) Patient History Medical History (Updated 09/04/23 @ 17:54 by Alfonso Salazar MD) History of migraine Diabetes mellitus, type 2 Spinal cord injury INJURY AT WORK IN 2007 Gout Gastroparesis GERD (gastroesophageal reflux disease) Hypothyroidism Anemia Depression Anxiety Migraine Hyperlipidemia Hypertension Thrombosis RT JUGULAR Pulmonary embolism 2007 Surgical History History of anesthesia reaction WENT IN TO A COMA FOR 1 DAY AFTER SILVIA (DONE AT [facility] 1984) History of dilatation and curettage History of total abdominal hysterectomy and bilateral salpingo-oophorectomy Fusion of spine 2007 History of cholecystectomy History of appendectomy History of colonoscopy History of mandibular surgery UPPER AND LOWER History of tooth extraction History of tonsillectomy Family History Sister Family history of diabetes mellitus Heart disease Social History Smoking Status: Never smoker Second Hand Exposure: No; Hx Alcohol Use: Yes Alcohol type: wine Hx Substance Use: No Preferred Language: Kosovan Communication Ability: Effective Voice Over Artist Required: No Beliefs That Will Affect Care: None Current Living Situation: Other Feels Safe at Home: Yes Safety Concerns: Feels Safe At This Time Assistive Devices: Glasses Physical Exam Neurological Examination: Mental Status: Awake and alert. Oriented to person, place, and time. Fluency naming repetition and comprehension appear grossly intact. Affect remains appropriate. CN testing: I: Denies changes in ability to smell II:Reports no changes in visual acuity III/IV/: No evidence of gaze preference, hippus, nystagmus or roving eye movements V: Facial sensation reportedly grossly intact to light touch bilaterally VII: Facial movements appear without evidence of asymmetry VIII: Hearing appears grossly intact to loud voice bilaterally IX/X: Palate appears to elevate symmetrically XI: Shoulder shrug appears symmetric/ grossly intact bilaterally XII: Tongue protrudes midline without evidence of biting Motor exam: Strength appears grossly intact/symmetric in all extremities Sensory: Sensation is reportedly grossly intact throughout Coordination: Finger to nose and heel to mcclain were intact. No apparent evidence of dysmetria or dysdiadochokinesia Reflexes: Deferred Gait: Deferred Results & Data Vital Signs (Past 12 Hours) Vital Signs BP Pulse Ox 09/05/23 01:08 127/64 09/05/23 01:01 95 09/05/23 01:01 127/64 09/05/23 01:00 95 09/05/23 00:00 143/94 H 09/05/23 00:00 97 09/04/23 23:01 94 09/04/23 23:00 95 Laboratory Results Abnormal lab results 09/04/23 09/05/23 09/05/23 Range/Units 21:00 03:05 07:33 Hgb 11.7 L (12.0-16.0) g/dl Hct 34.6 L (37.0-47.0) % MPV 12.6 H (9.4-12.4) fL BUN/Creatinine Ratio 27.1 H (10-20) Glucose 154 H (70-99(Fasting)) mg/dl POC Glucose 131 H 169 H (70-99) mg/dl Hemoglobin A1c 7.3 H (4.5-5.6) % Triglycerides 164 H (0-150) mg/dl VLDL Cholesterol, Calc 33 H (0-30) mg/dl 09/05/23 Range/Units 11:54 Hgb (12.0-16.0) g/dl Hct (37.0-47.0) % MPV (9.4-12.4) fL BUN/Creatinine Ratio (10-20) Glucose (70-99(Fasting)) mg/dl POC Glucose 127 H (70-99) mg/dl Hemoglobin A1c (4.5-5.6) % Triglycerides (0-150) mg/dl VLDL Cholesterol, Calc (0-30) mg/dl Diagnostic Findings Brain MRI 09/04/23 15:27 MR brain wo/w con HISTORY: 62 years-old Female R/O Stroke acute strokelike symptoms COMPARISON: Head CT 09/04/2023 TECHNIQUE: Multiplanar multisequence MRI of the brain was obtained with and without IV contrast. FINDINGS: No restricted diffusion. Cavum septum pellucidum and vergae. Midline structures are unremarkable. No acute intracranial hemorrhage, midline shift, abnormal extra-axial collection, hydrocephalus or intra-axial mass. There is no pathologic blooming artifact. Cerebral venous sinuses and major arterial flow voids appear patent. Skull, orbits and soft tissues are unremarkable. Mastoid air cells are clear. Mild mucosal thickening of the paranasal sinuses. Mild involutional changes with mild T2/FLAIR hyperintense foci throughout the white matter likely representing chronic microvascular ischemic disease. No abnormal enhancement. IMPRESSION: 1. No acute intracranial abnormality. No acute or subacute infarct. 2. No abnormal enhancement. ACT 112: Negative or not required by law. The above report was generated using voice recognition software. It may contain grammatical, syntax or spelling errors. Electronically signed by: Kristian Daley M.D. 09/04/2023 6:06 PM Carotid Doppler Study 09/04/23 15:27 US carotid doppler BI CLINICAL HISTORY: 62 years-old Female with TIA. Acute strokelike symptoms COMPARISON: 08/14/2007 TECHNIQUE: Multiple real time sonographic images of the carotid bifurcations were obtained assessing kay scale, color Doppler and spectral wave form appearance FINDINGS: RIGHT CAROTID: The peak systolic velocity measured within the right ICA is 58 cm/sec. The end diastolic velocity measured 16 cm/sec. The ICA to CCA ratio measured 0.81 which correlates with a stenosis of 0-50%. Mild atherosclerotic plaque of the carotid bulb. LEFT CAROTID: The peak systolic velocity measured within the left ICA is 82 cm/sec. The end diastolic velocity measured 20 cm/sec. The ICA to CCA ratio measured 0.8 which correlates with a stenosis of 0-50%. Mild atherosclerotic plaque of the carotid bulb. There is normal antegrade vertebral flow bilaterally. IMPRESSION: 1. Mild atherosclerosis without hemodynamically significant stenosis. 2. Normal antegrade vertebral flow bilaterally. ACT 112: Negative or not required by law. The above report was generated using voice recognition software. It may contain grammatical, syntax or spelling errors. Electronically signed by: Kristian Daley M.D. 09/04/2023 5:56 PM Medications Administered Home Medications Medication Instructions Recorded Confirmed Last Taken sumatriptan succinate 100 mg 1 tab PO UD PRN Migraine Headache 04/17/18 09/04/23 04/14/18 tablet (Imitrex) galcanezumab-gnlm 120 mg/mL 120 mg subcut MO 09/04/23 09/04/23 08/31/23 subcutaneous pen injector (Emgality Pen) glimepiride 4 mg tablet 4 mg PO BID 09/04/23 09/04/23 Unknown semaglutide 2 mg/dose (8 mg/3 mL) 2 mg subcut WK 09/04/23 09/04/23 09/01/23 subcutaneous pen injector (Ozempic) Active Medications Generic Name Dose Route Start Last Admin Trade Name Freq PRN Reason Stop Dose Admin Acetaminophen 650 mg 09/04/23 15:27 09/05/23 08:42 Acetaminophen 325 Mg Tab PO 10/04/23 15:26 650 mg Q4H PRN Administration Pain or Fever Aspirin 81 mg 09/05/23 09:00 09/05/23 08:43 Aspirin 81 Mg Ectab PO 10/05/23 08:59 81 mg QAM AHSAN Administration Atorvastatin Calcium 40 mg 09/05/23 09:00 09/05/23 08:44 Atorvastatin 40 Mg Tab PO 10/05/23 08:59 40 mg QAM AHSAN Administration Insulin Aspart 0 units 03/06/24 16:30 09/05/23 09:38 Insulin Aspart Per Unit Charge SC 10/04/23 16:29 5 units ACHS AHSAN Administration Lisinopril 10 mg 09/05/23 09:00 09/05/23 08:43 Lisinopril 10 Mg Tab PO 10/05/23 08:59 10 mg QAM AHSAN Administration
[2023-09-05] MEDS: CLOPIDOGREL BISULFATE 75 MG TAB PO ONE (13:25)
--- NOTE | 2023-09-05 13:27 | Hospitalist Progress Note ---
Date of Service September 05, 2023 Assessment & Plan (1) Stroke-like symptoms: Plan 62-year-old lady with PMH of T2DM, HTN/noncompliant with home medication, HDL/noncompliant with home medication, migraine on Imitrex occasionally, gastroparesis, GERD, PE presented to the ED 09/03 with complaint of right hand numbness and word finding difficulty that lasted around 20 to 30 minutes and was associated with headache on 09/03/2023. She is being managed for the following: Strokelike symptoms Hypertensive emergency Patient presenting with right hand numbness and word finding difficulty [see above] At presentation, blood pressure 251/174, down to 188/108 without medication. Admitting imagings: CXR with no acute finding. CT head with no acute finding. Brain MRI with no acute finding. Carotid Doppler with mild atherosclerosis without hemodynamically significant stenosis. DDx: TIA, CVA, hypertensive emergency, atypical migraine A1c of 7.3, LDL of 108. Admitting troponin negative, patient with no chest pain. TSH WNL. Echo with EF of 60 to 65%, no evidence of ASD or intra-atrial shunt. Continue DAPT started 09/04. CTA head and neck ordered, follow D-dimer and homocystine level ordered. Continue telemetry monitoring, neurochecks. PT/OT. Speech therapy. Neurology evaluated, appreciate recommendation. Noncompliant with home medication, previously prescribed atorvastatin 80 mg, lisinopril 20 Mg, aspirin 81 Mg. Aspirin restarted, atorvastatin restarted at 40 mg daily for now. Lisinopril restarted at 10 mg daily. Importance of medication compliance discussed with the patient in detail. Electrolyte abnormalities/hypokalemia/hypomagnesemia -noted at admission, monitor and replete, stable today. Other chronic medical conditions: Continue with/resume home meds as and when able T2DM: A1c of 7.1 on 03/06/2023, A1c 7.3 this admission. Home glimepiride and Ozempic on hold. Of note, home dose of glimepiride to be 4 mg twice daily however patient takes once daily. On sliding scale insulin while in hospital. History of migraine: On Emgality once monthly and Imitrex very occasionally. Previously was on nortriptyline 20 mg at bedtime and magnesium oxide 400 mg d aily however she has not been taking those. Hyperlipidemia: Prescribed atorvastatin in the past, however she was not taking them. Atorvastatin started at 40 mg daily. Patient will need lipid panel in about 3 months time. Gastroparesis/GERD: Previously on PPI, however patient not taking them. DVT prophylaxis: Lovenox Full code PCP: Dr. Hernandez Admission and Anticipated Discharge Date Admission Date: September 04, 2023 Subjective Patient was seen and examined at bedside. Patient was sitting up in bed, on room air, NAD, resting comfortably. Patient denies any new neurological signs and symptoms. Patient denies any focal weakness. Patient reports no headache or dizziness or febrile illness or chest pain or sore throat. Physical Exam Physical Exam: GENERAL: Alert and oriented x3. NAD, on RA. Overweight. HEENT: No pallor, no icterus. Pupils equal, round and reactive to light. Oral mucosa moist. NECK: No JVD, no neck masses. HEART: S1 and S2 heard. Regular rate and rhythm. No murmur, no gallop. RESPIRATORY SYSTEM: Normal AP diameter. No accessory muscle use. No wheezing, no crackles. ABDOMEN: Soft, bowel sounds present, nontender, no distention. CENTRAL NERVOUS SYSTEM: No facial droop. Speech is clear. Obeys simple commands. Moves extremities. EXTREMITIES: No edema, no erythema seen.
[2023-09-05] MEDS: OPTIRAY 320 125ml IV ONE (13:43)
--- NOTE | 2023-09-05 14:02 | CT Scan Report ---
CT ANGIOGRAM OF THE NECK CLINICAL HISTORY: Strokelike symptoms. COMPARISON STUDY: CT of the neck dated 01/12/2008. TECHNIQUE: Following the IV administration of 115 of Optiray 320, CT angiogram of the neck was perfor med from the aortic arch to the skull base. Images are reviewed in the axial, sagittal, and coronal p lanes. 3-D MIPS images are created and assessed. IV contrast was administered without complication. A ll measurements were calculated based on NASCET criteria. A dose lowering technique was utilized adh ering to the principles of ALARA. CT DOSE: 999.44 mGy.cm FINDINGS: Thoracic aorta: Visualized portions of the thoracic aorta are normal in caliber. The aortic arch demo nstrates standard 3-vessel anatomy. Right carotid arterial system: The right common carotid artery is widely patent, as are the right int ernal and external carotid arteries. Left carotid arterial system: The left common carotid artery is widely patent, as are the left help desk intern al and external carotid arteries. Vertebral arteries: The vertebral arteries are widely patent bilaterally noting left-sided dominance. Subclavian arteries: Widely patent bilaterally. Intracranial vasculature: The visualized intracranial vessels at the skull base are widely patent. Jugular veins: Widely patent bilaterally. Brain parenchyma: The visualized brain parenchyma the skull base is within normal limits. Lung apices: Partially visualized upper lobe lung parenchyma appears clear. Soft tissues: The visualized pharyngeal soft tissues are normal in appearance noting angiographic pha se technique. The oropharyngeal airway appears widely patent. The salivary and thyroid glands are nor mal in appearance. No cervical lymphadenopathy is seen. Skeletal structures: The skeletal structures are osteopenic. The visualized calvarium at the skull ba se appears intact. Postsurgical and spondylotic change is seen in the cervical spine. Sinuses and mastoids: The visualized paranasal sinuses are clear. The mastoid air cells are well pneu matized. IMPRESSION: Unremarkable CT angiogram of the neck. ACT 112: Negative or not required by law. Electronically signed by: Reagan Reddy M.D. 09/05/2023 2:00 PM
--- NOTE | 2023-09-05 14:16 | CT Scan Report ---
CT angio head wo/w CLINICAL HISTORY: stroke w/u TECHNIQUE: Contiguous axial CT images of the head were acquired from the base of the skull to the coby yayo without intravenous contrast administration. CT angiography of the head was performed following intravenous administration of iodinated contrast. Coronal and sagittal MIPS were obtained from the ax ial data set and were submitted for review. Automated dose lowering techniques and/or adjustment acc ording to patient size were utilized for this examination. All measurements were calculated based on NASCET criteria. Comparison: Comparison is made to CT head 09/04/2023 FINDINGS: CT head: Areas of decreased attenuation are present in the periventricular and subcortical white miriam er bilaterally consistent with small vessel ischemic disease. Generalized cerebral atrophy with comme nsurate enlargement of the ventricles, sulci, and cisterns is also present. There is no acute intracr anial hemorrhage or evidence of acute territorial infarction. No shift of the midline structures, mas s effect, or extra-axial abnormalities are shown. Atherosclerotic calcifications are present in the intracranial segments of the internal carotid arteries. CTA Head: The anterior and posterior cerebral circulations are patent. No hemodynamically significan t stenosis, aneurysm, dissection, or arteriovenous malformation is shown. IMPRESSION: 1. No acute intracranial hemorrhage, evidence of acute territorial infarction, or other acute intrac ranial disease process. 2. No occlusion, hemodynamically significant stenosis, aneurysm, dissection, or arteriovenous malfor mation in the major intracranial arteries. Assessment of stenosis of the internal carotid arteries is based on NASCET criteria. ACT 112: Negative or not required by law. Electronically signed by: Nima Espinoza M.D. 09/05/2023 2:15 PM
[2023-09-05 15:39] LABS: D Dimer 310 ug/L FEU (0-500)
--- NOTE | 2023-09-05 17:13 | Electrocardiogram Report ---
Test Reason : Blood Pressure : / mmHG Vent. Rate : 080 BPM Atrial Rate : 080 BPM P-R Int : 146 ms QRS Dur : 080 ms QT Int : 394 ms P-R-T Axes : 039 004 049 degrees QTc Int : 454 ms Sinus rhythm with frequent Premature ventricular complexes Incomplete right bundle branch block Poor R wave progression, consider anterior PR vs. lead placement vs. LVH Abnormal ECG When compared with ECG of 04-SEP-2023 11:03, No significant change Confirmed by Olvin Stephen ([id number]) on 09/05/2023 5:13:18 PM Referred By: REFERRED SELF Confirmed By:Olvin Stephen
[2023-09-06 06:39] LABS: Mean Corpuscular Hemoglobin 28.1 pg (25.0-34.0); Mean Corpuscular Hgb Conc 33.3 g/dL (32.0-36.0); Mean Corpuscular Volume 84.3 fL (80.0-100.0); Mean Platelet Volume 12.6 fL (9.4-12.4); Platelet Count 270 K/uL (130-400); RDW Coefficient of Variation 12.9 % (11.5-14.5); RDW Standard Deviation 39.5 fL (36.4-46.3); Red Blood Count 4.27 M/uL (4.20-5.40); White Blood Count 9.82 K/ul (4.8-10.8)
[2023-09-06 07:04] LABS: BUN Creatinine Ratio 27.8 (10-20); Calcium 8.8 mg/dl (8.6-10.3); Creatinine Clr Calc Pharmacy 78.5 ml/min; Est GFR (African American) 103.3 ml/min; Est GFR (Non-African American) 89.1 ml/min; Magnesium 1.9 mg/dl (1.7-2.4); Phosphorus 3.3 mg/dl (2.5-4.9)
[2023-09-06] MEDS: ENOXAPARIN INJ 40 MG/0.4 ML SYR SQ SCH (07:55)
[2023-09-06] MEDS: CLOPIDOGREL BISULFATE 75 MG TAB PO SCH (07:58)
--- NOTE | 2023-09-06 09:19 | Pharmacy Report ---
- Date of Service September 06, 2023 - Pharmacy CVA/TIA Medication Review Medications to Prevent Stroke handout has been added to the patients discharge packet. Antiplatelet(s) * clopidogrel 75mg daily * aspirin EC 81mg daily Cholesterol * High intensity statin: atorvastatin 40 mg daily DVT Prophylaxis * Enoxaparin SQ * SCD knee Therapeutic Anticoagulation * No history of Afib/Aflutter noted Type 2 Diabetes * Patient has T2DM and patient is prescribed semaglutide
[2023-09-06] MEDS ORDERED: STROKE PATIENT DISCHARGE STA (12:34)
--- NOTE | 2023-09-06 12:37 | Discharge Summary ---
Date of Service September 06, 2023 Admission HPI Per Admitting Provider Patient is 62 year old female with PMH DM II, HTN, dyslipidemia, migraine, gastroparesis, GERD, history of PE presented to ER with complaint of right hand numbness yesterday. History obtained from patient as well as outpatient chart review. Patient reports history of chronic headaches and migraines. She reports she wakes daily with mild frontal headache. She does not take anything for this headache. Patient states daily headaches have been happening since she was a teenager. Patient states yesterday woke up with her "normal headache" and went to work. She states she did not eat very much as she knew she had a busy day. Patient states was under a lot of stress at work yesterday. She reports around lunchtime had onset of word finding difficulty. Coworker denies noting any slurred speech but noted patient had trouble finding her words. Patient also noted some right hand numbness. She states she was having trouble reading as she could not comprehend the words. Also noted headache worsened. Patient states symptoms lasted 20 to 30 minutes and then resolved. Patient continued with headache and states she went home after work and took a nap. Upon awakening headache also resolved. Denies any diplopia, vision loss. Reports with migraines will have severe headache, photophobia, phonophobia, nausea, vomiting without aura. States symptoms yesterday were different than her typical migraine. Patient states she is supposed to be taking lisinopril, glimepiride, nortriptyline, atorvastatin, omeprazole however she has not been taking for quite some time. Patient reports chronic shortness of breath after remote PE but denies any worsening. Denies fever/chills, diaphoresis, N/V/D/C, dizziness, syncope, neck pain, CP, orthopnea, palpitations, cough, sore throat, otalgia, rhinorrhea, abdominal pain, weakness, extremity weakness, extremity edema, rashes, urinary symptoms. Admission Exam Per Admitting Provider General: no distress, WDWN Head: normocephalic, atraumatic Eyes: PERRL, EOM's intact, no nystagmus, conjunctiva non-injected, anicteric ENT: normal inspection external ears, nose, mucous membranes moist Neck: supple, trachea midline Lungs: clear, no respiratory distress, no wheezing/rhonchi/rales CV: RRR, no murmur, no pretibial edema Abd: normal BS, soft, non-tender Ext: no cyanosis, no calf tenderness Neuro: A&O x 3, normal affect, facial sensation is intact and symmetric, face is strong and symmetric, hearing grossly intact, soft palate elevates symmetrically, no dysarthria, shoulder shrug intact, tongue is midline, normal movement, no fasciculations. Strength 5/5 throughout Skin: warm, dry Principal Diagnosis Strokelike symptoms Hypertensive emergency Discharge Exam GENERAL: Alert and oriented x3. NAD, on RA. Overweight. HEENT: No pallor, no icterus. Pupils equal, round and reactive to light. Oral mucosa moist. NECK: No JVD, no neck masses. HEART: S1 and S2 heard. Regular rate and rhythm. No murmur, no gallop. RESPIRATORY SYSTEM: Normal AP diameter. No accessory muscle use. No wheezing, no crackles. ABDOMEN: Soft, bowel sounds present, nontender, no distention. CENTRAL NERVOUS SYSTEM: No facial droop. Speech is clear. Obeys simple commands. Moves extremities. EXTREMITIES: No edema, no erythema seen. Discharge Data Allergies Allergy/AdvReac Type Severity Reaction Status Date / Time exenatide [From Bydureon] Allergy Hives Verified 09/04/23 12:52 Consultations 09/04/23 12:29 ED Decision to Admit Stat 09/04/23 15:27 Consult Neurology Routine Ordered Studies 09/04/23 09:41 CT head/brain wo con Stat 09/04/23 15:27 MR brain wo/w con Routine US carotid doppler BI Routine 09/05/23 13:09 CT angio neck with con Routine CTA head wo/w [CT angio head wo/w] Routine Hospital Course (1) Stroke-like symptoms: Plan 62-year-old lady with PMH of T2DM, HTN/noncompliant with home medication, HDL/noncompliant with home medication, migraine on Imitrex occasionally, gastroparesis, GERD, PE presented to the ED 09/03 with complaint of right hand numbness and word finding difficulty that lasted around 20 to 30 minutes and was associated with headache on 09/03/2023. She was managed for the following: Strokelike symptoms Hypertensive emergency Patient presenting with right hand numbness and word finding difficulty [see above] At presentation, blood pressure 251/174, down to 188/108 without medication. Admitting imagings: CXR with no acute finding. CT head with no acute finding. Brain MRI with no acute finding. Carotid Doppler with mild atherosclerosis without hemodynamically significant stenosis. DDx: TIA, CVA, hypertensive emergency, atypical migraine A1c of 7.3, LDL of 108. Admitting troponin negative, patient with no chest pain. TSH WNL. Echo with EF of 60 to 65%, no evidence of ASD or intra-atrial shunt. Continue DAPT started 09/04. Patient explained to continue aspirin and Plavix for total of 21 days and then to continue with baby aspirin only. Patient explained to avoid omeprazole while on Plavix. CT of head and neck and D-dimer levels normal, discussed with neurology, ismael for discharge and follow-up with neurology in 1 month time. Patient with no new neurological signs of symptoms. Noncompliant with home medication, previously prescribed atorvastatin 80 mg, lisinopril 20 Mg, aspirin 81 Mg. Aspirin restarted, atorvastatin restarted at 40 mg daily for now. Lisinopril upped to 20 mg daily as BP running higher. Importance of medication compliance discussed with the patient in detail. Electrolyte abnormalities/hypokalemia/hypomagnesemia -noted at admission, monitor and replete, stable today. Other chronic medical conditions: Continue with/resume home meds as and when able T2DM: A1c of 7.1 on 03/06/2023, A1c 7.3 this admission. Home glimepiride and Ozempic on hold. Of note, home dose of glimepiride to be 4 mg twice daily however patient takes once daily. On sliding scale insulin while in hospital. History of migraine: On Emgality once monthly and Imitrex very occasionally. Previously was on nortriptyline 20 mg at bedtime and magnesium oxide 400 mg daily however she has not been taking those. Hyperlipidemia: Prescribed atorvastatin in the past, however she was not taking them. Atorvastatin started at 40 mg daily. Patient will need lipid panel in about 3 months time. Gastroparesis/GERD: Previously on PPI, however patient not taking them. DVT prophylaxis: Lovenox Full code PCP: Dr. Hernandez Patient is being discharged home with following instruction at the point of discharge: Follow-up with your primary care physician within a week time and likely you will need labs CBC/CMP/magnesium/phosphorus. You were started on aspirin and Plavix 09/05/2023, continue to take both of these medication daily for 19 more days starting 09/07/2023 and then take only baby aspirin daily. Follow-up with neurology in a month time upon discharge. Maintain compliance with your blood pressure medication, measure your blood pressure twice a day at home/maintain a log/take it to your primary care physician office during her next visit for further management/evaluation for your blood pressure medications. Maintain compliance with your atorvastatin, it might need to be uptitrated, you will need repeat lipid panel in about 3 months time. Avoid omeprazole while on Plavix. Take your medications as prescribed. Please make sure that you are able to get your medications today by calling your pharmacy before you leave the hospital so that your treatment continuity is not broken. Home Health Attestation I certify that this patient is under my care and that I, or a physicians corporate legal assistant working with me, had a face to-face encounter that meets the home health psta-xo-slck encounter requirements with this patient. The encounter with the patient was in whole, or in part, for the following medical condition, which is the primary reason for home health care (list medical condition): I certify that, based on my findings, the following services are medically necessary home health services: My clinical findings support the need for the above services because: Further, I certify that my clinical findings support that this patient is homebound (i.e. absences from home require considerable and taxing effort and are for medical reasons or christian services or infrequently or of short duration when for other reasons) because: Certification for Home Health Services: Based on the above findings, I certify that this patient is confined to the home and needs intermittent correction care, physical therapy and/or speech therapy or continues to need occupational therapy. The patient is under my care, and I have initiated the establishment of the plan of care. This patient will be followed by a physician who will periodically review the plan of care. Total Time Total Time Spent Total Time Spent (In Minutes): 45 Discharge Plan Discharge Items Patient Disposition: Home - Self-Care Reason For Visit: NEURO SYMPTOMS Discharge Diagnosis: Strokelike symptoms Hypertensive emergency Activity: Resume your previous activity Non-emergency contact: Primary Care Provider Call non-emergency contact if: you have any medication questions, your symptoms worsen and your temperature is above 101.5 Follow-up/Referrals: Ilana Goff PA-C [Primary Care Provider] - Diet: Carb Consistent or DM2 and Low Sodium (2gm) Addtl Attending Provider Instructions: Follow-up with your primary care physician within a week time and likely you will need labs CBC/CMP/magnesium/phosphorus. You were started on aspirin and Plavix 09/05/2023, continue to take both of these medication daily for 19 more days starting 09/07/2023 and then take only baby aspirin daily. Follow-up with neurology in a month time upon discharge. Maintain compliance with your blood pressure medication, measure your blood pressure twice a day at home/maintain a log/take it to your primary care physic antonino office during her next visit for further management/evaluation for your blood pressure medications. Maintain compliance with your atorvastatin, it might need to be uptitrated, you will need repeat lipid panel in about 3 months time. Avoid omeprazole while on Plavix. Take your medications as prescribed. Please make sure that you are able to get your medications today by calling your pharmacy before you leave the hospital so that your treatment continuity is not broken. Pending Studies at Discharge: No Stand-Alone Forms: My [facility] [employer], Smoking Cessation Medications and DC Order Prescriptions: New clopidogrel 75 mg Tablet 75 mg PO QAM 19 Days Qty: 19 0RF atorvastatin 40 mg Tablet 40 mg PO QAM Qty: 30 0RF lisinopril 20 mg tablet 20 mg PO DAILY Qty: 30 0RF aspirin 81 mg Tablet,Delayed Release (Dr/Ec) 81 mg PO QAM Qty: 30 0RF Continued sumatriptan succinate [Imitrex] 100 mg Tablet 1 tab PO UD PRN (Reason: Migraine Headache) glimepiride 4 mg tablet 4 mg PO BID Rx Instructions: Patient only taking once daily Emgality Pen 120 mg/mL pen injector 120 mg SUBCUT MO Ozempic 2 mg/dose (8 mg/3 mL) pen injector 2 mg SUBCUT WK Discharge Orders: Discharge Order (Routine); Ordered 09/06/23 Ordered By: Kb Lockwood Admission Data Admit Date/Time: 09/04/23 12:29 Attending Provider: Kb Lockwood Admit Provider: Bel Quintero Primary Care Provider: Ilana Goff. Other Providers: Bel Quintero; Olvin Geronimo
--- NOTE | 2023-09-09 10:42 | Pharmacy Report ---
Pharmacist Stroke Counseling - Date of Service September 09, 2023 - Scope: Pharmacy has been consulted to provide medication discharge counseling for this patient admitted with [ischemic stroke] [hemorrhagic stroke] [transient ischemic attack] as per the Pharmacist Discharge Counseling for Stroke Patients Protoc . - Medications on Discharge: Home Medications Medication Instructions Recorded Confirmed sumatriptan succinate 100 mg 1 tab PO UD PRN Migraine Headache 04/17/18 09/04/23 tablet (Imitrex) galcanezumab-gnlm 120 mg/mL 120 mg subcut MO 09/04/23 09/04/23 subcutaneous pen injector (Emgality Pen) glimepiride 4 mg tablet 4 mg PO BID 09/04/23 09/04/23 semaglutide 2 mg/dose (8 mg/3 mL) 2 mg subcut WK 09/04/23 09/04/23 subcutaneous pen injector (Ozempic) New Rx's Medication Instructions Recorded aspirin 81 mg tablet,delayed 81 mg PO QAM #30 tabs 09/06/23 release atorvastatin 40 mg tablet 40 mg PO QAM #30 tabs 09/06/23 clopidogrel 75 mg tablet 75 mg PO QAM 19 days #19 tabs 09/06/23 lisinopril 20 mg tablet 20 mg PO DAILY #30 tabs 09/06/23 - Action: The above medications, specifically ones for stroke treatment/prophylaxis, have been reviewed in detail with the patient and/or patient national account representative(s) prior to discharge. This includes indication, common adverse reactions, drug interactions, and medication administration. Medication counseling has been employed using the teach-back method to ensure understanding. - Outcome: The patient and/or patient national account representative(s) have demonstrated understanding of the medications. Additional comments: Spoke with Zhanna this AM, she has picked up her medications from the pharmacy and has begun taking them. Reviewed uses and side effects of new medications (aspirin, Plavix, Lipitor, and lisinopril). Reviewed importance of these medications to prevent cardiovascular events. Reviewed importance of blood pressure monitoring, patient reports values below 140/100 mmHg when taking twice a day at home since discharge which within goal range. Reviewed importance of HbA1c at goal and CVD benefit, patient not aware Ozempic has proven CVD benefit, but is now. Reports understanding the benefit of these medications. All questions answered. Thank you for allowing pharmacy to be involved in the care of this patient. Please call [phone] with any additional questions
== END 2023-09-06 12:49 | disposition home or self-care (01) ==
LOC: ED 09:29 → EDINP 09:29 → SUATTDRO 12:29 → 2S 09-05 21:54